=== PATIENT | female | born 1945 | race Caucasian/White ===

== ENCOUNTER → 2023-03-18 12:27 | Outpatient (REF) | payer OTHER, SELFPAY | LOC: RAD 12:27 | PROVIDERS: ATTENDING PHYSICIAN Physician Assistant Medical; FAMILY PHYSICIAN Nurse Practitioner | DX: S99.912A Unspecified injury of left ankle, initial encounter (principal); W19.XXXA Unspecified fall, initial encounter; M25.512 Pain in left shoulder | CPT/HCPCS: 73030; 73610; 73630 ==

== ENCOUNTER → 2023-05-22 08:52 | Outpatient (REF) | payer OTHER, SELFPAY ==
[2023-05-22 13:29] LABS: Glycohemoglobin (HgbA1c) 5.8 % (4.0-5.6)
[2023-05-22 14:44] LABS: Free T3 3.83 pg/ml (2.77-5.27)
[2023-05-22 14:58] LABS: TSH Reflex To Free T4 0.45 uIU/ml (0.47-4.68)
[2023-05-22 15:27] LABS: Free T4 1.19 ng/dl (0.78-2.19)
[2023-05-22 15:49] LABS: Urine Albumin Negative (Neg - Trace); Urine Bilirubin Negative (Negative); Urine Character Clear (Clear); Urine Color Yellow; Urine Glucose Negative (Negative); Urine Ketone Negative (Negative); Urine Leukocyte 1+ (Negative); Urine Nitrite Negative (Negative); Urine Occult Blood 2+ (Negative); Urine Specific Gravity 1.025 (<1.030); Urine Urobilinogen Negative (Neg - 1+)
[2023-05-22 15:57] LABS: Urine Calcium Oxalate Crystals Present; Urine Squamous Cell 0-2 /LPF (Few)
[2023-05-23 14:21] LABS: Thyroglobulin Antibodies <0.9 IU/mL (0.0-4.0); Thyroid Peroxidase Ab (TPO) <0.3 IU/mL (0.0-9.0)
== END ==
LOC: HWLAB 08:52
PROVIDERS: ATTENDING PHYSICIAN Nurse Practitioner Adult Health
DX: R73.01 Impaired fasting glucose (principal); E05.90 Thyrotoxicosis, unspecified without thyrotoxic crisis or storm; N39.0 Urinary tract infection, site not specified
CPT/HCPCS: 36415; 81003; 81015; 83036; 84439; 84443; 84481; 86376; 86800; 87086

== ENCOUNTER → 2023-06-19 09:38 | Outpatient (REF) | payer OTHER, SELFPAY | LOC: WDC 09:38 | PROVIDERS: ATTENDING PHYSICIAN Nurse Practitioner Adult Health | DX: N64.89 Other specified disorders of breast (principal) | CPT/HCPCS: 76642; 77062; 77066 ==

== ENCOUNTER → 2023-06-24 08:08 | Outpatient (REF) | payer OTHER, SELFPAY ==
--- NOTE | 2023-06-26 11:07 | OID.BR.INTR ---
JUMANAD Breast Navigator - Initial
- -
Date of Contact: 06/24/23
Met with patient. Patient given written information on navigator services available at [facility]. Will follow up as needed per protocol.
== END ==
LOC: WDC 08:08
PROVIDERS: ATTENDING PHYSICIAN Nurse Practitioner Adult Health
DX: N63.12 Unspecified lump in the right breast, upper inner quadrant (principal)
CPT/HCPCS: 88305; 19083; 77065; 88341; 88342; 88360; A4648

== ENCOUNTER → 2023-07-11 12:02 | Outpatient (REF) | payer OTHER, SELFPAY ==
[2023-07-11 15:26] LABS: % Basophils 0.5 % (0-2); % Eosinophils 1.4 % (0-6); % Immature Granulocytes 0.4 % (0-0.5); % Lymphocytes 8.9 % (20.5-51.1); % Monocytes 8.2 % (1.7-9.3); % Neutrophils 80.6 % (42.2-75.2); Absolute Basophils 0.1 10^3/uL (0-0.2); Absolute Eosinophils 0.2 10^3/uL (0-0.7); Absolute Immature Granulocytes 0.1 10^3/uL (0-0.05); Absolute Lymphocytes 1.1 10^3/uL (1.2-3.4); Absolute Neutrophils 9.5 10^3/uL (1.4-6.5); Hematocrit 43.7 % (37.0-47.0); Hemoglobin 14.5 g/dL (12.0-16.0); Mean Corp Hgb Conc. 33.2 g/dL (33.0-37.0); Mean Corpuscular Hgb 29.2 pg (27.0-31.0); Mean Corpuscular Volume 87.9 fL (81.0-99.0); Mean Platelet Volume 9.9 fL (7.4-10.4); Nucleated Red Blood Cells % 0 %; Platelet Count 312 10^3/uL (130-400); Red Blood Cell Count 4.97 10^6/uL (4.20-5.40); Red Cell Dist. Width 13.2 % (11.5-14.5); White Blood Cell Count 11.8 10^3/uL (4.8-10.8)
[2023-07-11 15:27] LABS: Urine Albumin Trace (Neg - Trace); Urine Bilirubin 1+ (Negative); Urine Character Very Cloudy (Clear); Urine Color Yellow; Urine Glucose Negative (Negative); Urine Ketone 1+ (Negative); Urine Leukocyte Trace (Negative); Urine Nitrite Negative (Negative); Urine Occult Blood 3+ (Negative); Urine Urobilinogen 1+ (Neg - 1+)
[2023-07-11 15:30] LABS: ALT (SGPT) 14 U/L (0-35); AST (SGOT) 17 U/L (14-36); Albumin 3.9 g/dl (3.5-5.0); Alkaline Phosphatase 113 U/L (38-126); Blood Urea Nitrogen 17 mg/dl (7-17); Calcium 9.6 mg/dl (8.4-10.2); Carbon Dioxide 28 mmol/L (22-30); Chloride 103 mmol/L (98-107); Glucose 128 mg/dl (70-99); Sodium 140 mmol/L (135-145); Total Bilirubin 0.5 mg/dl (0.2-1.3); Total Protein 6.5 g/dl (6.3-8.2); eGFR > 60.00
[2023-07-11 15:39] LABS: Erythrocyte Sed Rate 40 mm/hour (0-20)
[2023-07-11 15:50] LABS: Vitamin D, 25-OH*** 58.7 ng/mL (30-80)
[2023-07-11 16:03] LABS: TSH Reflex To Free T4 0.25 uIU/ml (0.47-4.68)
[2023-07-11 16:05] LABS: Urine Amorphous Seen; Urine Calcium Oxalate Crystals Present
[2023-07-11 16:33] LABS: Free T4 1.29 ng/dl (0.78-2.19)
== END ==
LOC: HWLAB 12:02
PROVIDERS: ATTENDING PHYSICIAN Nurse Practitioner Adult Health
DX: M25.50 Pain in unspecified joint (principal); R53.83 Other fatigue; B34.9 Viral infection, unspecified; R79.89 Other specified abnormal findings of blood chemistry
CPT/HCPCS: 36415; 80053; 81003; 81015; 82306; 84439; 84443; 85025; 85652; 86038; 86140; 86200; 86430; 86618

== ENCOUNTER → 2023-07-15 16:25 | Outpatient (REF) | payer OTHER, SELFPAY | LOC: MRI 3T 16:25 | PROVIDERS: ATTENDING PHYSICIAN Surgery; FAMILY PHYSICIAN Nurse Practitioner Adult Health | DX: C50.411 Malignant neoplasm of upper-outer quadrant of right female breast (principal); Z17.0 Estrogen receptor positive status [ER+] | CPT/HCPCS: 77049; A9585 ==

== ENCOUNTER 2023-07-20 23:01 | Inpatient (IN) | payer OTHER, SELFPAY ==
[2023-07-20] VITALS (7 sets, daily range): BP systolic 125–155; BP diastolic 70–83
[2023-07-20 17:58] LABS: % Basophils 0.7 % (0-2); % Eosinophils 3.2 % (0-6); % Immature Granulocytes 0.5 % (0-0.5); % Monocytes 10.1 % (1.7-9.3); % Neutrophils 71.5 % (42.2-75.2); Absolute Basophils 0.1 10^3/uL (0-0.2); Absolute Eosinophils 0.4 10^3/uL (0-0.7); Absolute Immature Granulocytes 0.1 10^3/uL (0-0.05); Absolute Lymphocytes 1.9 10^3/uL (1.2-3.4); Absolute Monocytes 1.3 10^3/uL (0.1-0.6); Absolute Neutrophils 9.6 10^3/uL (1.4-6.5); Hematocrit 40.1 % (37.0-47.0); Hemoglobin 13.7 g/dL (12.0-16.0); Mean Corp Hgb Conc. 34.2 g/dL (33.0-37.0); Mean Corpuscular Hgb 29.3 pg (27.0-31.0); Mean Corpuscular Volume 85.7 fL (81.0-99.0); Mean Platelet Volume 8.8 fL (7.4-10.4); Nucleated Red Blood Cells % 0 %; Platelet Count 396 10^3/uL (130-400); Red Blood Cell Count 4.68 10^6/uL (4.20-5.40); Red Cell Dist. Width 13.5 % (11.5-14.5); White Blood Cell Count 13.3 10^3/uL (4.8-10.8)
[2023-07-20 18:16] LABS: ALT (SGPT) < 10 U/L (0-35); AST (SGOT) 13 U/L (14-36); Albumin 3.4 g/dl (3.5-5.0); Alkaline Phosphatase 103 U/L (38-126); Blood Urea Nitrogen 19 mg/dl (7-17); Calcium 9.5 mg/dl (8.4-10.2); Carbon Dioxide 29 mmol/L (22-30); Chloride 103 mmol/L (98-107); Glucose 126 mg/dl (70-99); Potassium 4.5 mmol/L (3.5-5.1); Sodium 138 mmol/L (135-145); Total Bilirubin 0.3 mg/dl (0.2-1.3); Total Protein 6.5 g/dl (6.3-8.2); eGFR > 60.00
[2023-07-20] MEDS: DECADRON 10 MG IV (19:29)
[2023-07-20] MEDS: DUONEB 3 ML INH (19:36)
--- NOTE | 2023-07-20 19:38 | ED.GENMED ---
History of Present Illness
General
Chief Complaint: Breathing Problem
Source: patient
Time Seen by Provider: 07/20/23 17:57
Travel History
Have you had any contact with someone who has COVID-19?: No
Do you have any symptoms of coronavirus? Fever > 100 degrees, chills, cough, shortness of breath, sore throat, loss of taste or smell, muscle aches, or headache?: No
History of Present Illness
History of Present Illness:
78 year old female presents with increased work of breathing. History of COPD, HTN. Typically uses 2 L of oxygen at night but not during the day. She was brought here under nonrebreather by EMS. She was breathing about 40 breaths a minute. She
has an upcoming lumpectomy in about a week. Family states she is nervous about this. There has been no fever. No sweats or chills
Phy Exam
Physical Exam
Physical Exam:
General: Well-developed female with increased work of breathing
HEENT: Normocephalic atraumatic oral mucosa moist no erythema or thrush
Heart: Regular rate and rhythm
Lungs: Breath sounds distant bilaterally
Extremities: No cyanosis
Skin is warm no rash
Scores
Heart Failure Risk
Heart Failure Risk Score: Not Applicable
Course
Orders/Labs/Results
Orders:
Orders
07/20/23 17:44
EKG [Electrocardiogram (*1)] Urgent
Reason for Study: Shortness of Breath
EKG- Treatment ONCE
07/20/23 17:51
Complete Blood Count/With Diff Urgent
Comprehensive Metabolic Panel Urgent
07/20/23 18:29
CR Chest - 2 Views Urgent
Comment:
Reason For Exam: sob
07/20/23 19:20
Dexamethasone Sod Phosphate [Decadron] 10 mg IV NOW STA
Ipratropium/Albuterol Sulfate [Duoneb] 3 ml INH R NOW ONE
Abnormal Lab Results
07/20/23
17:51
WBC 13.3 H 10^3/uL
(4.8-10.8)
Abs Immat Gran (auto) 0.1 H 10^3/uL
(0-0.05)
Absolute Neuts (auto) 9.6 H 10^3/uL
(1.4-6.5)
Absolute Monos (auto) 1.3 H 10^3/uL
(0.1-0.6)
Lymphocytes % 14.0 L %
(20.5-51.1)
Monocytes % 10.1 H %
(1.7-9.3)
BUN 19 H mg/dl
(7-17)
Glucose 126 H mg/dl
(70-99)
AST 13 L U/L
(14-36)
Albumin 3.4 L g/dl
(3.5-5.0)
07/20/23 17:51
07/20/23 17:51
Vital Signs
Initial and Last Documented VS:
Initial Vital Signs
Temp Pulse Resp BP Pulse Ox
98.7 F 103 24 155/83 92
07/20/23 17:45 07/20/23 17:45 07/20/23 17:45 07/20/23 17:45 07/20/23 17:45
Last Documented Vital Signs
Temp Pulse Resp BP Pulse Ox
98.7 F 92 26 132/71 92
07/20/23 17:45 07/20/23 21:00 07/20/23 21:00 07/20/23 21:00 07/20/23 20:15
MDM/Problems Addressed
Differential Diagnosis Includes:
Shortness of breath with increased work of breathing. She is on Eliquis. Unlikely to be PE. COPD versus CHF versus pneumonia
Patient tachypneic on exam requiring increased oxygen demand. Will try DuoNeb and Decadron chest x-ray pending.
*Critical Care Note
Total Time (30-74mins, 75-104mins- exclusive of procedures): Not Applicable
Update Note
Update Note:
Chest x-ray reviewed and is clear. Patient still tachypneic and requiring additional oxygen. Will keep in hospital for COPD flare.
ED Attending Note
-
Portions of this chart may have been created with voice recognition software.� Occasional wrong word or��sound alike� substitutions may have occurred due to the inherent limitations of voice recognition software.
Discharge Plan
Departure
Patient Disposition: Admit
Date of Disposition: 07/20/23
Time of Disposition: 21:50
Admit to: Telemetry
Presentation/result/management discussed w/ accepting MD/DO: Hospitalist
Discharge Problem:
COPD (chronic obstructive pulmonary disease)
Prescriptions:
No Action
amlodipine 10 mg Tablet
10 mg PO DAILY
fluticasone propion-salmeterol [Advair Diskus] 500-50 mcg/dose Blister With Device
1 inh INHALATION R BID
Spiriva with HandiHaler 18 mcg Capsule, W/Inhalation Device
1 cap INHALATION R DAILY
zinc 50 mg Tablet
50 mg PO DAILY
cholecalciferol (vitamin D3) 50 mcg (2,000 unit) Tablet
50 mcg PO DAILY
Emergen-C 500 mg Tablet,Chewable
1 tab PO DAILY
Xarelto 20 mg tablet
20 mg PO .DAILY SEE NOTE
Patient Comments:
PTS LAST DOSE OF SHAQ WAS FRIDAY NIGHT SHE WAS TO START XARELTO 20MG DAILY TODAY
guaifenesin 600 mg Tablet Extended Release 12hr
600 mg PO Q12 Qty: 30 0RF
azithromycin [Zithromax] 500 mg tablet
500 mg PO DAILY 3 Days Qty: 3 0RF
prednisone 10 mg tablet
10 mg PO DAILY Qty: 20 0RF
Rx Instructions:
40mg daily for 2 days
30mg daily for 2 days
20mg daily for 2 days
10mg daily for 2 days
Referrals:
Yeni Jaimes CRNP [Family Provider] -
Interventions
Interventions:
*Risk Screen - Suicide Last Done: 07/20/23 17:46
*General Assessment Last Done: 07/20/23 17:46
*Neglect/Abuse Screening Last Done: 07/20/23 17:46
*ED COVID-19 Vaccine History Last Done: 07/20/23 17:46
ED- Cardiac Assessment Last Done: 07/20/23 17:47
ED- Pulmonary Assessment Last Done: 07/20/23 17:47
Discharge Date and Time
Print Language: BANGLADESHI
--- NOTE | 2023-07-20 22:05 | HPS.HSE ---
Family Physician
-
Family Physician: Yeni Jaimes
Chief Complaint
-
Shortness of breath
History of Present Illness
78 year old woman presents with c/o SOB and increased work of breathing. She has a History of COPD, and essential HTN. She Typically uses 2 L of oxygen at night, but not during the day. As reported by EMS, she was breathing about 40 breaths a
minute. She has an upcoming lumpectomy in about a week and her family states she is nervous about this. There has been no fever. No sweats or chills. At the time of my interview, she feels better after decadron and nebs. She says her last
cigarrette was 2 months ago.
Medical History
Past Medical History
Past Medical History: Reports Other
Additional Past Medical History:
Essential hypertension
LBBB (left bundle branch block)
Malignant neoplasm of upper-outer quadrant of right female breast
Nodular lesion on surface of skin
Chronic obstructive pulmonary disease,
Paroxysmal atrial fibrillation
Past Surgical History: Reports None
Social History
Tobacco: Former Smoker
Alcohol: None
Drug: None
Family History
Family History: Not pertinent
Allergies / Home Medications
Allergies reflects when Allergies were last updated in [email or web address].
Home Medications with original date entered in [email or web address]
Allergy/Medication List:
Allergies
Allergy/AdvReac Type Severity Reaction Status Date / Time
pentazocine [From Talwin] Allergy Severe Anaphylaxis Verified 09/06/22 12:05
Penicillins Allergy Mild Hives Verified 09/06/22 11:33
pseudoephedrine Allergy Mild Hives Verified 09/06/22 11:33
[From Sudafed]
Macrolide Antibiotics Allergy Hives Verified 09/06/22 12:17
KETOLIDES Allergy Unknown Hives Uncoded 09/06/22 13:08
Home Medications
amlodipine 10 mg tablet 10 mg PO DAILY Blood Pressure 09/06/22
cholecalciferol (vitamin D3) 50 mcg (2,000 unit) tablet 50 mcg PO DAILY Supplement 09/06/22
tiotropium bromide 18 mcg capsule with inhalation device (Spiriva with HandiHaler) 1 cap inhalation R DAILY Lung/Breathing Issues 09/06/22
vitamin C 500 mg-multivitamin with minerals chewable tablet (Emergen-C) 1 tab PO DAILY Supplement 09/06/22
zinc 50 mg tablet 50 mg PO DAILY Supplement 09/06/22
apixaban 5 mg tablet (Eliquis) 5 mg PO BID 07/20/23
Review of Systems
-
History Source: Patient
A 12 point ROS was completed and negative except as noted: Yes
Physical Exam
Vital Signs
Vital Signs
Temp Pulse Resp BP Pulse Ox
98.7 F 92 26 132/71 92
07/20/23 17:45 07/20/23 21:00 07/20/23 21:00 07/20/23 21:00 07/20/23 20:15
Physical Exam
General: Well Developed, Well Nourished and Respiratory Distress
HEENT: Moist mucous membranes, Nose Appears Normal and Ears Appear Normal
Respiratory: Wheezes and Decreased Breath Sounds
Cardiac: S1/S2 and Regular Rhythm
GI: Soft, Non Tender and Non Distended
Musculoskeletal: No Clubbing, No Cyanosis, Edema, Left Lower Extremity (trace) and Edema, Right Lower Extremity (trace)
Skin: Warm and Dry
Neuro: Awake, Alert, Oriented and AO x 3
Psych: Calm
Laboratory Results
-
07/20/23 17:51
07/20/23 17:51
Laboratory Results
Total Bilirubin 0.3 mg/dl (0.2-1.3) 07/20/23 17:51
AST 13 U/L (14-36) L 07/20/23 17:51
ALT < 10 U/L (0-35) 07/20/23 17:51
Alkaline Phosphatase 103 U/L (38-126) 07/20/23 17:51
Data Reviewed
-
Lab Data: Labs Reviewed by me
Impression/Plan
-
IMPRESSION:
78 woman with COPD exacerbation
PLAN:
1. COPD exacerbation, no PNA on CXR.
Steroids
Nebs
Oral Doxy
Oxygen as needed
2. Anxiety about recent breast cancer diagnosis
Low dose ativan PRN
3. WBC of 13.3 - may be from steroids
Follow daily and trend
Continue to look for sources of infection
4. BUN/Creat > 20, likely from decreased po
encourage PO intake
Full code
VCD for DVTp
[2023-07-21] VITALS (8 sets, daily range): BP systolic 92–140; BP diastolic 57–82; BMI 25.9
[2023-07-21] MEDS: VIBRAMYCIN 100 MG PO ×3 (01:34→19:36)
[2023-07-21] MEDS: DUONEB 3 ML INH ×4 (03:40→20:17)
[2023-07-21] MEDS: DECADRON 6 MG IV ×2 (05:23→21:47)
[2023-07-21 06:09] LABS: Blood Urea Nitrogen 20 mg/dl (7-17); Calcium 9.5 mg/dl (8.4-10.2); Carbon Dioxide 29 mmol/L (22-30); Chloride 103 mmol/L (98-107); Glucose 187 mg/dl (70-99); Potassium 4.8 mmol/L (3.5-5.1); Sodium 138 mmol/L (135-145); eGFR > 60.00
[2023-07-21] MEDS: NORVASC PO (08:31)
[2023-07-21] MEDS: ELIQUIS 5 MG PO ×2 (08:31→19:39)
[2023-07-21] MEDS: VITAMIN C 500 MG PO (08:32)
[2023-07-21] MEDS: ZINC SULFATE 220 MG PO (08:32)
[2023-07-21] MEDS: VITAMIN D3 (cholecalciferol) 50 MCG PO (08:32)
--- NOTE | 2023-07-21 17:05 | W.PN.HOSP.TC ---
Today's Communication/Plan
-
see outlined plan
Assessment / Plan
Assessment / Plan
Assessment:
Acute hypoxic RF on chronic hypoxic RF (baseline O2 needs only 2L at night)
AECOPD
- continue IV steroids
- nebs scheduled and prn
- doxycycline continues
- wean O2 as able
Anxiety, situational with upcoming breast procedure
- prn Ativan
recent dx of R breast cancer
- for Lumpectomy next week
PAF
- on Eliquis
Hx of CVA 2000
Essential HTN
- continue Amlodipine
DVT ppx: Eliquis
Code: Full
Anticipated Discharge: 24 - 48 hours
Subjective/Interval History
-
Date of Service: July 21, 2023
feeling subjectively better this morning, less SOB
Objective Data
-
Labs:
Laboratory Results
07/21/23
05:22
Sodium 138
Potassium 4.8
Chloride 103
Carbon Dioxide 29
BUN 20 H
Creatinine 0.6
Glucose 187 H
Calcium 9.5
Vital Signs:
Vital Signs
Temp Pulse Resp BP Pulse Ox
97.9 F 82 16 128/73 93
07/21/23 11:54 07/21/23 11:54 07/21/23 11:54 07/21/23 11:54 07/21/23 11:54
Physical Exam
-
General: No Apparent Distress
HEENT: Normocephalic and Atraumatic
Respiratory: Wheezes (faint); Negative Rales
Cardiac: Regular Rhythm and S1/S2
Genito-urinary: No Costovertebral Tender
Neuro: AO x 3
Psych: Calm
Data Reviewed
-
Total Time Spent with Patient (in minutes): 42
Labs: Labs Reviewed by me
--- NOTE | 2023-07-21 18:16 | W.PN.UPDATE ---
Update Note
Progress Note Update
Pt know to me-was scheduled for tentative lumpectomy and sentinel node mapping and biopsy next week pending Pulmonary clearance and MRI of the breast. Surgery is cancelled and will await resolution of the COPD exacerbation. MRI shows possible
multi-centric disease and will discuss with patient. No need to consult me formally.
Thank you.
--- NOTE | 2023-07-21 21:19 | PTCARENOTE ---
DALLAS Ureña notified about IV decadron order/scheduled time in APR.
[2023-07-22 02:49] VITALS: BMI 25.3
[2023-07-22 03:00] VITALS: BP 110/64
--- NOTE | 2023-07-22 03:43 | PTCARENOTE ---
Rec'd pt from the ER on RA. Pt walked from stretcher to the bed. Denies pain. Assessment as charted. About 15 minutes after being in the room pt asked to have her oxygen placed back on. 2L02 placed on pt. She does get dyspnic on exertion. Call faria
in reach.
[2023-07-22] MEDS: DECADRON 6 MG IV (05:53)
[2023-07-22] MEDS: DUONEB 3 ML INH ×2 (07:54→15:34)
[2023-07-22 07:55] VITALS: BP 135/83
[2023-07-22 08:51] LABS: Hematocrit 38.9 % (37.0-47.0); Hemoglobin 12.7 g/dL (12.0-16.0); Mean Corp Hgb Conc. 32.6 g/dL (33.0-37.0); Mean Corpuscular Hgb 28.9 pg (27.0-31.0); Mean Corpuscular Volume 88.6 fL (81.0-99.0); Mean Platelet Volume 9.2 fL (7.4-10.4); Platelet Count 385 10^3/uL (130-400); Red Blood Cell Count 4.39 10^6/uL (4.20-5.40); Red Cell Dist. Width 13.3 % (11.5-14.5); White Blood Cell Count 10.9 10^3/uL (4.8-10.8)
[2023-07-22] MEDS: VITAMIN C 500 MG PO (09:06)
[2023-07-22] MEDS: NORVASC 10 MG PO (09:06)
[2023-07-22] MEDS: ZINC SULFATE 220 MG PO (09:06)
[2023-07-22] MEDS: VIBRAMYCIN 100 MG PO ×2 (09:06→20:02)
[2023-07-22] MEDS: ELIQUIS 5 MG PO ×2 (09:07→20:02)
[2023-07-22] MEDS: VITAMIN D3 (cholecalciferol) 50 MCG PO (09:07)
[2023-07-22 09:29] LABS: Blood Urea Nitrogen 23 mg/dl (7-17); Calcium 9.7 mg/dl (8.4-10.2); Carbon Dioxide 27 mmol/L (22-30); Chloride 104 mmol/L (98-107); Estimated Creatinine Clearance 76 ml/min; Glucose 140 mg/dl (70-99); Potassium 5.1 mmol/L (3.5-5.1); Sodium 140 mmol/L (135-145); eGFR > 60.00
--- NOTE | 2023-07-22 10:50 | W.PN.HOSP.TC ---
Today's Communication/Plan
-
IV steroids continue, nebs continue
Assessment / Plan
Assessment / Plan
Assessment:
Acute hypoxic RF on chronic hypoxic RF (baseline O2 needs only 2L at night)
AECOPD
- continue IV steroids
- nebs scheduled and prn
- doxycycline, day 2
- wean O2 as able
Anxiety, situational with upcoming breast procedure
- prn Ativan
recent dx of R breast cancer
- for Mastectomy, sentinel node mapping in coming weeks
PAF
- on Eliquis
Hx of CVA 2000
Essential HTN
- continue Amlodipine
DVT ppx: Eliquis
Code: Full
Anticipated Discharge: Within 24 hours
Subjective/Interval History
-
Date of Service: July 22, 2023
reports wheezing, cough (nonproductive)
off O2 with rest and exertion
Objective Data
-
Labs:
Laboratory Results
07/22/23
08:01
WBC 10.9 H
Hgb 12.7
Hct 38.9
Plt Count 385
Sodium 140
Potassium 5.1
Chloride 104
Carbon Dioxide 27
BUN 23 H
Creatinine 0.6
Glucose 140 H
Calcium 9.7
Vital Signs:
Vital Signs
Temp Pulse Resp BP Pulse Ox
98.0 F 69 20 135/83 98
07/22/23 07:55 07/22/23 09:06 07/22/23 07:59 07/22/23 09:06 07/22/23 07:59
I&O
07/21/23 07/22/23 07/23/23
06:59 06:59 06:59
Intake Total 0 / 0
Balance 0 / 0
Physical Exam
-
General: No Apparent Distress
HEENT: Normocephalic and Atraumatic
Respiratory: Wheezes
Cardiac: Regular Rhythm and S1/S2
GI: Soft
Musculoskeletal: No Edema
Psych: Calm
Data Reviewed
-
Total Time Spent with Patient (in minutes): 45
Labs: Labs Reviewed by me
--- NOTE | 2023-07-22 12:53 | PN.CDI ---
CDI
- -
CDI:
Physician Documentation Request
Admit Date: 07/20/23 23:01
Dear Doctor More,
Please review the following and provide your response in the progress notes.
Clinical Indicators:
Documentation in the record on 07/21 PN includes the diagnosis of acute hypoxic respiratory failure.
- 07/21 PN 'Acute hypoxic RF on chronic hypoxic RF (baseline O2 needs only 2L at night)'
- 07/19 ER Physician 'She was brought here under nonrebreather by EMS. She was breathing about 40 breaths a minute'
- Documented VS 92% on room air on admission
- 2L O2 pulse ox >91%
Recognized standard criteria for respiratory failure includes:
(Source: [facility] Hospitalist Dec 2012)
ABGs (1 or more)
�PO2 <60 or RA SpO2 <91%
�PcO2 >50 and pH <7.35
�pO2 decrease or pcO2 increase by 10 mmHg from baseline if known Symptoms:
�Tachypnea, SOB, dyspnea
�Pallor or cyanosis
�Anxiety or restlessness
�Use of accessory muscles
�Retractions (grunting in newborns)
�Unable to speak in complete sentences
Supplemental O2 requirement of 40% (5LPM) or more Intubation is not required
Based on the above information and the recognized standard for respiratory failure could you please verify this diagnoses is still accurate and reflective of the patient�s condition to ensure quality of the medical record.
Please clarify in the Progress Notes:
Acute hypoxic respiratory failure is/was present and is a clinical diagnosis based on (please include this additional support in the medical record)
After study acute hypoxic respiratory failure has been ruled out
Other
Use of terms such as suspected, likely, concern for, or probable (associated with a specific diagnosis that is being evaluated, monitored, or treated as if it exists) are acceptable and can be coded in the inpatient setting, when documented at the
time of discharge.
Thank you,
Harrison Rahman RN
CDI Specialist
Please use your independent medical judgment in providing your response.
[2023-07-22 15:55] VITALS: BP 93/67
[2023-07-22] MEDS: DECADRON 4 MG IV ×2 (17:07→23:37)
[2023-07-22] MEDS: ATIVAN 0.5 MG PO (21:41)
[2023-07-22 23:43] VITALS: BP 129/67
[2023-07-23 07:02] VITALS: BP 148/76
[2023-07-23] MEDS: DUONEB 3 ML INH ×4 (07:43→19:25)
--- NOTE | 2023-07-23 08:32 | W.PN.HOSP.TC ---
Today's Communication/Plan
-
continue IV steroids
scheduled nebs
add steroid nebs
continue doxy
mucolytics/IS/Acapella
Assessment / Plan
Assessment / Plan
Assessment:
Acute hypoxic Respiratory insufficiency on chronic hypoxic RF (baseline O2 needs only 2L at night) - acute hypoxic respiratory failure has been ruled out
AECOPD
- continue IV steroids
- nebs scheduled and prn
- add steroid nebs BID
- doxycycline, day 3/
- wean O2 as able
- add IS/Acapella
- at DC, start Breo - patient confirmed with insurance for coverage.
Anxiety, situational with upcoming breast procedure
- prn Ativan
recent dx of R breast cancer
- for Mastectomy, sentinel node mapping in coming weeks
PAF
- on Eliquis
Hx of CVA 2000
Essential HTN
- continue Amlodipine
DVT ppx: Eliquis
Code: Full
Anticipated Discharge: > 48 hours
Subjective/Interval History
-
Date of Service: July 23, 2023
feels more wheezing today, states that day 3 is usually her worst in her flare ups
Objective Data
-
Vital Signs:
Vital Signs
Temp Pulse Resp BP Pulse Ox
98 F 72 20 148/76 96
07/23/23 07:02 07/23/23 07:50 07/23/23 07:50 07/23/23 07:02 07/23/23 07:50
I&O
07/22/23 07/23/23 07/24/23
06:59 06:59 06:59
Intake Total 0 / 0 1859
Balance 0 / 0 1859
Physical Exam
-
HEENT: Normocephalic and Atraumatic
Respiratory: Wheezes
Cardiac: Regular Rhythm
GI: Soft
Musculoskeletal: No Edema
Neuro: AO x 3
Psych: Calm
Data Reviewed
-
Total Time Spent with Patient (in minutes): 42
Labs: Labs Reviewed by me
[2023-07-23] MEDS: VITAMIN D3 (cholecalciferol) 50 MCG PO (09:03)
[2023-07-23] MEDS: VITAMIN C 500 MG PO (09:03)
[2023-07-23] MEDS: ZINC SULFATE 220 MG PO (09:03)
[2023-07-23] MEDS: VIBRAMYCIN 100 MG PO ×2 (09:03→20:00)
[2023-07-23] MEDS: NORVASC 10 MG PO (09:03)
[2023-07-23] MEDS: DECADRON 4 MG IV ×3 (09:04→23:19)
[2023-07-23] MEDS: ELIQUIS 5 MG PO ×2 (09:04→20:00)
[2023-07-23] MEDS: PULMICORT 0.5 MG INH ×2 (11:19→19:25)
[2023-07-23 15:05] VITALS: BP 127/71
[2023-07-23] MEDS: PEPCID 20 MG PO (18:41)
[2023-07-23] MEDS: ATIVAN 0.5 MG PO (21:55)
[2023-07-23 23:51] VITALS: BP 142/82
[2023-07-24] VITALS (8 sets, daily range): BP systolic 130–179; BP diastolic 27–89; PULSE 71–92; O2SAT 96–97
[2023-07-24] MEDS: DUONEB 3 ML INH ×4 (07:42→20:20)
[2023-07-24] MEDS: PULMICORT 0.5 MG INH ×2 (08:06→20:20)
--- NOTE | 2023-07-24 09:00 | W.PN.HOSP.TC ---
Today's Communication/Plan
-
tele
nebs continue
IV steroids, reduce the dose
continue doxy
OOBTC, PT/OT
Assessment / Plan
Assessment / Plan
Assessment:
Acute hypoxic Respiratory insufficiency on chronic hypoxic RF (baseline O2 needs only 2L at night) - acute hypoxic respiratory failure has been ruled out
AECOPD
- continue IV Decadron, reduce to 4mg q12h
- nebs scheduled and prn
- continue steroid nebs BID
- doxycycline, day 4/
- wean O2 as able
- continue IS/Acapella
- at DC, start Breo - patient confirmed with insurance for coverage.
Anxiety, situational with upcoming breast procedure
- prn Ativan HS
recent dx of R breast cancer
- for Mastectomy, sentinel node mapping in coming weeks
PAF
- reported flutters last night, likely in setting of nebs
- add tele
- on Eliquis
Hx of CVA 2000
Essential HTN
- continue Amlodipine
DVT ppx: Eliquis
Code: Full
Anticipated Discharge: Within 24 hours
Subjective/Interval History
-
Date of Service: July 24, 2023
reports cough and wheezing improving
Objective Data
-
Vital Signs:
Vital Signs
Temp Pulse Resp BP Pulse Ox
98.3 F 59 20 155/67 93
07/24/23 08:19 07/24/23 08:19 07/24/23 08:19 07/24/23 08:19 07/24/23 08:19
I&O
07/23/23 07/24/23 07/25/23
06:59 06:59 06:59
Intake Total 1859 480 / 480
Balance 1859 480 / 480
Physical Exam
-
General: No Apparent Distress
HEENT: Normocephalic and Atraumatic
Respiratory: Wheezes (faint)
Cardiac: Regular Rhythm and S1/S2
GI: Soft
Genito-urinary: No Costovertebral Tender
Neuro: AO x 3
Hematologic / Lymphatic: No Lymphadenopathy
Psych: Calm
Data Reviewed
-
Total Time Spent with Patient (in minutes): 44
Labs: Labs Reviewed by me
[2023-07-24] MEDS: ELIQUIS 5 MG PO ×2 (09:18→21:56)
[2023-07-24] MEDS: DECADRON 4 MG IV ×2 (09:18→21:56)
[2023-07-24] MEDS: NORVASC 10 MG PO (09:18)
[2023-07-24] MEDS: PEPCID 20 MG PO (09:19)
[2023-07-24] MEDS: ZINC SULFATE 220 MG PO (09:19)
[2023-07-24] MEDS: VIBRAMYCIN 100 MG PO ×2 (09:19→21:56)
[2023-07-24] MEDS: FLUSH (NSS) 2 FLUSH IV (09:19)
[2023-07-24] MEDS: VITAMIN C 500 MG PO (09:19)
[2023-07-24] MEDS: VITAMIN D3 (cholecalciferol) 50 MCG PO (09:19)
[2023-07-24] MEDS: DECADRON IV (09:46)
--- NOTE | 2023-07-24 10:50 | PTCARENOTE ---
Placed pt on telemetry per orders, Sinus Rhythm, HR in the 60s.
--- NOTE | 2023-07-24 14:01 | CM ---
Late Note from 07/22/2023 (deleted in error): I met with Genevieve and her on 07/22/2023 to discuss advance directives and compete assessment.
They live together in an apartment at [facility]. Both are (I) amb and adl's.
Plan: Discharge to home with . No needs anticipated.
PCP: Yeni Jaimes
Pharmacy: [facility] in [place]
--- NOTE | 2023-07-24 15:08 | CM ---
I met with Genevieve today to discuss discharge plans. She will be evaluated by PT and OT and possible discharge tomorrow.
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
Plan: Return to apartment at [facility] with . No needs anticipated.
PCP: Yeni Jaimes
Pharmacy: [facility] in [place]
--- NOTE | 2023-07-24 15:43 | PTOTSP ---
Patient with good insight into safety with transfers and ambulation. Demonstrates independence with mobility. Does not demonstrate need for continues skilled therapy; will be discharged at this time. If needs changes, please re-consult.
[2023-07-24] MEDS: TUMS EX (EXTRA STRENGTH) CHEWABLE 1 TABLET PO (21:35)
[2023-07-24] MEDS: ATIVAN 0.5 MG PO (21:57)
[2023-07-25 03:46] VITALS: BP 157/92
[2023-07-25 07:30] VITALS: BP 152/87
[2023-07-25] MEDS: DUONEB 3 ML INH ×3 (07:32→15:29)
[2023-07-25] MEDS: PULMICORT 0.5 MG INH (07:32)
[2023-07-25] MEDS: NORVASC 10 MG PO (09:31)
[2023-07-25] MEDS: ELIQUIS 5 MG PO (09:31)
[2023-07-25] MEDS: ZINC SULFATE 220 MG PO (09:32)
[2023-07-25] MEDS: VIBRAMYCIN 100 MG PO (09:32)
[2023-07-25] MEDS: VITAMIN C 500 MG PO (09:32)
[2023-07-25] MEDS: PEPCID 20 MG PO (09:32)
[2023-07-25] MEDS: VITAMIN D3 (cholecalciferol) 50 MCG PO (09:32)
[2023-07-25] MEDS: DECADRON 4 MG IV (09:35)
[2023-07-25] MEDS: FLUSH (NSS) 2 FLUSH IV (09:35)
[2023-07-25 11:08] VITALS: BP 135/72
--- NOTE | 2023-07-25 13:18 | W.PN.HOSP.TC ---
Today's Communication/Plan
-
dc to home
Assessment / Plan
Assessment / Plan
Assessment:
Acute hypoxic Respiratory insufficiency on chronic hypoxic RF (baseline O2 needs only 2L at night) - acute hypoxic respiratory failure has been ruled out
AECOPD
- dc on steroid taper x 10 days
- nebs prn at home
- doxycycline course completed
- wean O2 as able
- continue IS/Acapella
- at DC, start Breo - patient confirmed with insurance for coverage.
Anxiety, situational with upcoming breast procedure
- prn Ativan HS
recent dx of R breast cancer
- for Mastectomy, sentinel node mapping in coming weeks
PAF
- reported flutters last night, likely in setting of nebs
- on Eliquis
Hx of CVA 2000
Essential HTN
- continue Amlodipine
DVT ppx: Eliquis
Code: Full
More than 30 minutes spent in discharge including
Final examination of the patient
Summarizing hospital stay
Instructions for continuing care to all relevant caregivers
Preparation of discharge records, prescriptions, and referral forms
Total time spent (in minutes): 42
Anticipated Discharge: Today
Subjective/Interval History
-
Date of Service: July 25, 2023
feels much improved and eager for DC
Objective Data
-
Vital Signs:
Vital Signs
Temp Pulse Resp BP Pulse Ox
98.3 F 70 18 135/72 95
07/25/23 11:08 07/25/23 11:08 07/25/23 11:08 07/25/23 11:08 07/25/23 11:07
I&O
07/24/23 07/25/23 07/26/23
06:59 06:59 06:59
Intake Total 480 / 480 960 / 960
Balance 480 / 480 960 / 960
Physical Exam
-
General: No Apparent Distress
HEENT: Normocephalic and Atraumatic
Respiratory: Negative Wheezes
Cardiac: Regular Rhythm and S1/S2
GI: Soft
Neuro: AO x 3
Hematologic / Lymphatic: No Lymphadenopathy
Psych: Calm
Data Reviewed
-
Total Time Spent with Patient (in minutes): 42
Labs: Labs Reviewed by me
--- NOTE | 2023-07-25 13:28 | W.DS.TRANS ---
DC Summary - Knot Cutter
-
Discharge Instructions:
Discharge Diagnosis/Procedures acute COPD exacerbation
Diet Regular
Activity As tolerated
Bathing Restrictions None
Instructions:
Stand-Alone Forms:
Changes to Home Medications: No
Discharge Medications:
DC Medications w/original date entered in [facility]
amlodipine 10 mg tablet 10 mg PO DAILY Blood Pressure 09/06/22
cholecalciferol (vitamin D3) 50 mcg (2,000 unit) tablet 50 mcg PO DAILY Supplement 09/06/22
tiotropium bromide 18 mcg capsule with inhalation device (Spiriva with HandiHaler) 1 cap inhalation R DAILY Lung/Breathing Issues 09/06/22
apixaban 5 mg tablet (Eliquis) 5 mg PO BID Blood Clot Prevention/Tx 07/20/23
acetaminophen 325 mg tablet (Tylenol) 325 mg PO DAILYPRN PRN mild pain 07/21/23
ascorbic acid (vitamin C) 500 mg tablet (Vitamin C) 500 mg PO DAILY Supplement 07/21/23
zinc sulfate 50 mg zinc (220 mg) capsule 50 mg PO DAILY Supplement 07/21/23
fluticasone furoate 100 mcg-vilanterol 25 mcg/dose inhalation powder (Breo Ellipta) 1 inh inhalation DAILY #60 ea 07/25/23
ipratropium 0.5 mg-albuterol 3 mg (2.5 mg base)/3 mL nebulization soln 3 ml inhalation R Q4HPRN PRN shortness of breath #90 mL 07/25/23
prednisone 10 mg tablet 10 mg PO DIRECTED #20 tabs 07/25/23
Home Medication Changes
Pending Results: No
Total time spent discharging patient (in min): 42
[2023-07-25 15:20] VITALS: BP 123/73
--- NOTE | 2023-07-25 16:07 | CM ---
Genevieve was in good spirits today in anticipation of discharge. Her was picking her up to return home. She is (I) amb and adl's. No needs identified.
Plan: Return home to [place] apartment with .
PCP: Yeni Jaimes
Pharmacy: [facility] in [place]
== END 2023-07-25 15:53 | disposition home or self-care (01) | DRG 192 ==
LOC: 4 EAST ACU 23:01
PROVIDERS: ADMITTING PHYSICIAN Internal Medicine; ATTENDING PHYSICIAN Internal Medicine; EMERGENCY PHYSICIAN Emergency Medicine; FAMILY PHYSICIAN Nurse Practitioner Adult Health
DX: J44.1 Chronic obstructive pulmonary disease with (acute) exacerbation (principal); C50.411 Malignant neoplasm of upper-outer quadrant of right female breast; Z87.891 Personal history of nicotine dependence; F41.9 Anxiety disorder, unspecified; I48.0 Paroxysmal atrial fibrillation; I10 Essential (primary) hypertension; R09.02 Hypoxemia; R06.89 Other abnormalities of breathing
CPT/HCPCS: 71046; 80048; 80053; 85025; 85027; 93005; 94640; 96374; 97116; 97162; 97166; 99285

== ENCOUNTER 2023-08-19 22:00 | Inpatient (IN) | payer OTHER, SELFPAY ==
[2023-08-19 17:13] VITALS: BP 149/98
[2023-08-19 17:42] LABS: % Basophils 0.6 % (0-2); % Eosinophils 1.6 % (0-6); % Immature Granulocytes 0.8 % (0-0.5); % Lymphocytes 11.1 % (20.5-51.1); % Monocytes 8.9 % (1.7-9.3); Absolute Basophils 0.1 10^3/uL (0-0.2); Absolute Eosinophils 0.2 10^3/uL (0-0.7); Absolute Immature Granulocytes 0.1 10^3/uL (0-0.05); Absolute Lymphocytes 1.2 10^3/uL (1.2-3.4); Absolute Neutrophils 8.5 10^3/uL (1.4-6.5); Hematocrit 38.9 % (37.0-47.0); Hemoglobin 13.1 g/dL (12.0-16.0); Mean Corp Hgb Conc. 33.7 g/dL (33.0-37.0); Mean Corpuscular Hgb 28.9 pg (27.0-31.0); Mean Corpuscular Volume 85.7 fL (81.0-99.0); Mean Platelet Volume 8.5 fL (7.4-10.4); Nucleated Red Blood Cells % 0 %; Platelet Count 582 10^3/uL (130-400); Red Blood Cell Count 4.54 10^6/uL (4.20-5.40); Red Cell Dist. Width 13.8 % (11.5-14.5)
[2023-08-19 18:00] LABS: ALT (SGPT) 10 U/L (0-35); AST (SGOT) 14 U/L (14-36); Albumin 3.6 g/dl (3.5-5.0); Alkaline Phosphatase 106 U/L (38-126); Blood Urea Nitrogen 17 mg/dl (7-17); Calcium 9.4 mg/dl (8.4-10.2); Carbon Dioxide 29 mmol/L (22-30); Chloride 100 mmol/L (98-107); Glucose 137 mg/dl (70-99); Potassium 4.4 mmol/L (3.5-5.1); Sodium 137 mmol/L (135-145); Total Bilirubin 0.5 mg/dl (0.2-1.3); Total Protein 6.3 g/dl (6.3-8.2); eGFR > 60.00
[2023-08-19 18:07] VITALS: BP 130/80
[2023-08-19 18:11] LABS: Troponin I < 0.012 ng/ml
[2023-08-19 19:00] VITALS: BP 115/71
--- NOTE | 2023-08-19 20:21 | ED.GENMED ---
History of Present Illness
General
Chief Complaint: Breathing Problem
Source: patient and spouse
Time Seen by Provider: 08/19/23 18:06
Nursing documentation reviewed up to this point in time: agreed with
History of Present Illness
History of Present Illness:
Patient to ED wt complaint of increasing SOB, weakness and fatigue. History of COPD, recently inpatient for exacerbation. States over the past 2 days her breathing has become worse. Denies fever/chills. SHe was seen by PCP today for unrelated
issue - she reports right ear drainage x 3 weeks. During her exam, PCP noted increasing SOB, low pulse ox and tachycardia. Advised to come to ED.
Past History
Past History
ED Past Medical History: Arrthythmia (afib), COPD, HTN and Other (New diagnosis right lobular breast CA)
Social History
Tobacco: Former smoker
Alcohol: None
Drug: None
Review of Systems
Review of Systems
Constitutional: Reports fatigue
EENT: Reports no symptoms
Respiratory: Reports cough and trouble breathing
Cardiac: Reports no symptoms
ABD/GI: Reports no symptoms
: Reports no symptoms
Musculoskeletal: Reports no symptoms
Skin: Reports no symptoms
Neurological: Reports weakness
Psychiatric: Reports no symptoms
Phy Exam
General Physical Exam
General Presentation: mild distress
General age: appears stated age
General Skin: warm and dry
General Habitus: normal
General Mental: alert
Cardiovascular Exam
Cardiovascular Exam: regular rate/rhythm
Pulmonary Exam
Pulmonary Exam: chest non tender and decreased breath sounds
Gastrointestinal Exam
Gastrointestinal Exam: normal bowel sounds, non tender, soft, no organomegaly, non distended and no cva tenderness
Musculoskeletal Exam
Musculoskeletal Exam: full ROM and neuro vasc intact
Skin Exam
Skin Exam: normal color, warm/dry and no rash
Psychiatric Exam
Psychiatric Exam: normal mood/affect
Scores
Heart Failure Risk
Heart Failure Risk Score: Not Applicable
Course
Orders/Labs/Results
Orders:
Orders
08/19/23 Breakfast
Cholesterol Lowering
At Your Request: Full Participation
Cholesterol Lowering: Sodium, 2 Gram
08/19/23 17:08
Electrocardiogram (*1) Urgent
Reason for Study: Other
Other Reason for Exam: abnormal EKG
08/19/23 17:09
EKG- Treatment ONCE
08/19/23 17:36
Complete Blood Count/With Diff Urgent
Comprehensive Metabolic Panel Urgent
Troponin I Urgent
08/19/23 18:09
CR Chest - 2 Views Urgent
Comment:
Reason For Exam: SOB
08/19/23 20:47
LevoFLOXacin 750 MG/150 ML [Levaquin] 750 mg in 150 ml IV NOW
08/19/23 21:22
CT Head W/o Iv Contrast Stat
Comment:
Reason For Exam: Headache, Otorrhea
08/19/23 21:33
Admit/Transfer Patient As Directed
Co-Sign Provider:
Level of Care: Inpatient admission
Assign to:: Telemetry
Physician / Group: aiden
Diagnosis: pneumonia
Reason for Telemetry: Arrhythmia
Date to Stop Telemetry: 08/22/23
Time to Stop Telemetry: 11:00
Reason for Hospitalization: pneumonia
Expected length of stay greater than two midnights?: Yes
ELOS- Estimated Length of Stay in days: 3
I certify the patient meets the requirements for IP care: Yes
08/19/23 21:34
Code Status As Directed
Resuscitation Status: Do not resuscitate
Reached after discussion with pt or family/Healthcare POA: Yes
DNR Bracelet Application ONCE
08/19/23 22:42
Acetaminophen [Tylenol] 650 mg PO Q4HPRN PRN
Ipratropium/Albuterol Sulfate [Duoneb] 3 ml INH R Q4HPRN PRN
08/19/23 22:42
PULMONARY CONSULT Routine
Consulting Provider: Esther Méndez
Was physician already notified: Yes
[facility] Urinary Antigen Routine
ELISABETH Source: Urine
Specimen Description:
Activity As Directed
Activity Level: Out of Bed-Early Mobility
Intake/ Output As Directed
Frequency: Per unit guidelines
Vital Signs As Directed
Frequency: Per unit guidelines
Weight As Directed
Frequency: Once
Comment: on admission
O2 Therapy [RESP] Routine
Titrate/Wean O2 to maintain O2 sat greater than (%): 92
Special Instructions: Wean as tolerated
Pt Eval And Treat Routine
Activity Level: As Tolerated
08/20/23 00:00
CefTRIAXone [Rocephin] 1,000 mg IV Q24H
Doxycycline Hyclate [Vibramycin] 100 mg 0.9% Sodium Chloride 250 ml [Nss] 250 ml IV Q12H
08/20/23 06:00
Basic Metabolic Panel IN AM
Complete Blood Count/No Diff IN AM
08/20/23 08:00
Amlodipine [Norvasc] 10 mg PO DAILY
Apixaban [Eliquis] 5 mg PO BID
Budesonide/Formoterol 80/4.5 [Symbicort 80/4.5 Mcg Inhaler] 2 puff INH R BID
08/21/23 06:00
Basic Metabolic Panel IN AM
Complete Blood Count/No Diff IN AM
08/22/23 06:00
Basic Metabolic Panel IN AM
Complete Blood Count/No Diff IN AM
08/22/23 11:00
DC Protocol for Telemetry ONCE
08/23/23 06:00
Basic Metabolic Panel IN AM
Complete Blood Count/No Diff IN AM
08/24/23 06:00
Basic Metabolic Panel IN AM
Complete Blood Count/No Diff IN AM
Abnormal Lab Results
08/19/23
17:36
WBC 11.0 H 10^3/uL
(4.8-10.8)
Plt Count 582 H 10^3/uL
(130-400)
Abs Immat Gran (auto) 0.1 H 10^3/uL
(0-0.05)
Absolute Neuts (auto) 8.5 H 10^3/uL
(1.4-6.5)
Absolute Monos (auto) 1.0 H 10^3/uL
(0.1-0.6)
Immature Gran % 0.8 H %
(0-0.5)
Neutrophils % 77.0 H %
(42.2-75.2)
Lymphocytes % 11.1 L %
(20.5-51.1)
Glucose 137 H mg/dl
(70-99)
08/19/23 17:36
08/19/23 17:36
Vital Signs
Initial and Last Documented VS:
Initial Vital Signs
Temp Pulse Resp BP Pulse Ox
97.5 F 116 22 149/98 93
08/19/23 17:13 08/19/23 17:13 08/19/23 17:13 08/19/23 17:13 08/19/23 17:13
Last Documented Vital Signs
Temp Pulse Resp BP Pulse Ox
97.5 F 105 17 136/84 95
08/19/23 17:13 08/19/23 21:45 08/19/23 21:45 08/19/23 21:00 08/19/23 21:45
*Radiology
Radiology exam reviewed: radiology read reviewed
*Pulse Oximetry
Patient hypoxic: yes
Comment: 91% at rest, 85% minimal activity
*Critical Care Note
Total Time (30-74mins, 75-104mins- exclusive of procedures): Not Applicable
ED Attending Note
-
Portions of this chart may have been created with voice recognition software.� Occasional wrong word or��sound alike� substitutions may have occurred due to the inherent limitations of voice recognition software.
Discharge Plan
Departure
Patient Disposition: Admit
Date of Disposition: 08/19/23
Time of Disposition: 20:32
Presentation/result/management discussed w/ accepting MD/DO: Hospitalist
Condition: Fair
Discharge Problem:
Pneumonia
Interventions
Interventions:
*Risk Screen - Suicide Last Done: 08/19/23 17:13
*General Assessment Last Done: 08/19/23 17:13
*Neglect/Abuse Screening Last Done: 08/19/23 17:13
ED- Fall Risk Assessment Last Done: 08/19/23 19:04
*ED COVID-19 Vaccine History Last Done: 08/19/23 22:34
*Nursing Disposition Last Done: 08/19/23 22:34
ED- Cardiac Assessment Last Done: 08/19/23 19:04
ED- Pulmonary Assessment Last Done: 08/19/23 19:04
Discharge Date and Time
Discharge Date/Time: 08/19/23 22:35
[2023-08-19 20:35] VITALS: BP 131/79
--- NOTE | 2023-08-19 20:52 | HPS.HSE ---
Addendum entered and electronically signed by Eh Bernstein DO 08/19/23 23:14:
Patient seen and examined independently. Agree with findings and plan as set forth by DALLAS Mata.
Patient is a 78y F with PMH significant for COPD, A-Fib, HTN and recently diagnosed breast cancer who presents to ED complaining of SOB, dizziness, copious R ear drainage and fatigue. Patient was seen by her PCP for these complaints and was
noted to be tachycardic with rates in the 130s in the office. She was referred to the ED for further evaluation. Patient was recently diagnosed with breast cancer. Her surgery has been postponed due to hospitalization last month for COPD. She is
followed by Dr. Jean-Baptiste.
Ass:
Hypoxemic Respiratory Insufficiency
RML Pneumonia
Otorrhea
Right Breast Cancer
Paroxysmal A-Fib
Benign Hypertension
History of DVT
COPD without Acute Exacerbation
Plan:
Admit for further evaluation and treatment.
CT head done in the ED with no significant abnormality.
IV abx for now for possible pneumonia - ? radiographic abnormality related to recently diagnosed malignancy?
Supportive care including O2 support, nebs, etc.
Follow for clinical improvement.
ENT evaluation given significant reported otorrhea.
Continue usual home medications including Eliquis.
Original Note:
Family Physician
-
Family Physician: Yeni Jaimes
Chief Complaint
-
ear drainage
History of Present Illness
78 year old with Right breast cancer, COPD, atrial fib,HTN presented to us with elevated HR from PCP office. patient was noted to have clear drainage from right only when she is laying down on her right side at night for past three weeks. she stated
hearing loss at that time. when she sleeps on her left side, she feels disequilibrium. she was evaluated by PCP today and noted to have HR of 137 on EKG, which prompted her to come to the ER. patient complained of worsening of sob, which is worse
with activity. she was noted very weak, fatigue, sleeping more than usual. at times, she feels like her HR is racing, palpitation. family stated poor appetite and lost 45lbs in one year. denied VALENCIA, dizzy or syncopal episode. denied fever, chills,
chest pain. denied abdominal pain,n ,v,d. denied dysuria or hematuria.
chest x ray with the impression of Mild amount of opacity in the right middle lobe and lingula which appears to have increased in the right middle lobe since 07/20/2023. Diagnostic possibilities are (1) mild pneumonia or peripheral endobronchial
infection (possibly atypical mycobacterial infection) or (2) mild subsegmental atelectasis/scarring.
2. Mild bilateral lung hyperinflation.
3. Moderate-sized bilateral pericardial fat pads.
patient received Levaquin in ER. admitting for further management.
Medical History
Past Medical History
Past Medical History: Reports Other
Additional Past Medical History:
HTN
right breast ca
nodular lesion on skin
COPD
paroxysmal atrial fib
TIA
DVT
liposarcoma of right leg
pneumonia
Past Surgical History: Reports Other
Additional Past Surgical History:
lipoma removal
basal cell removal
cataracts surgery
Social History
Tobacco: Former Smoker
Alcohol: None
Drug: None
Personal:
Living: With Family
Family History
Family History: Not pertinent
Allergies / Home Medications
Allergies reflects when Allergies were last updated in [employer]
Home Medications with original date entered in [employer]
Allergy/Medication List:
Allergies
Allergy/AdvReac Type Severity Reaction Status Date / Time
Macrolide Antibiotics Allergy Hives Verified 08/19/23 17:12
Penicillins Allergy Hives Verified 08/19/23 17:12
pentazocine [From [facility]] Allergy Anaphylaxis Verified 08/19/23 17:12
pseudoephedrine Allergy Hives Verified 08/19/23 17:12
[facility]
telithromycin Allergy Hives Verified 08/19/23 17:12
Home Medications
amlodipine 10 mg tablet 10 mg PO DAILY Blood Pressure 09/06/22
cholecalciferol (vitamin D3) 50 mcg (2,000 unit) tablet 50 mcg PO DAILY Supplement 09/06/22
tiotropium bromide 18 mcg capsule with inhalation device (Spiriva with HandiHaler) 1 cap inhalation R DAILY Lung/Breathing Issues 09/06/22
apixaban 5 mg tablet (Eliquis) 5 mg PO BID Blood Clot Prevention/Tx 07/20/23
zinc sulfate 50 mg zinc (220 mg) capsule 50 mg PO DAILY Supplement 07/21/23
ipratropium 0.5 mg-albuterol 3 mg (2.5 mg base)/3 mL nebulization soln 3 ml inhalation R Q4HPRN PRN shortness of breath #90 mL 07/25/23
acetaminophen 500 mg tablet (Tylenol Extra Strength) 1,000 mg PO HSPRN PRN mild pain 08/19/23
fluticasone furoate 100 mcg-vilanterol 25 mcg/dose inhalation powder (Breo Ellipta) 1 inh inhalation R DAILY 08/19/23
vitamin C 500 mg-multivitamin with minerals chewable tablet (Emergen-C) 1 tab PO DAILY 08/19/23
Review of Systems
-
Constitutional: Reports Weight Loss, Fatigue and Chills
EENT: Reports Other (ear drainage)
Respiratory: Reports Trouble Breathing
Cardiac: Reports Palpitations
Abdomen/GI: Reports No Symptoms
: Reports No Symptoms
Musculoskeletal: Reports No Symptoms
Skin: Reports No Symptoms
Neurological: Reports No Symptoms
Endocrine: Reports No Symptoms
Hematologic/Lymphatic: Reports No Symptoms
Psych: Reports No Symptoms
Physical Exam
Vital Signs
Vital Signs
Temp Pulse Resp BP Pulse Ox
97.5 F 101 29 115/71 91
08/19/23 17:13 08/19/23 19:30 08/19/23 19:30 08/19/23 19:00 08/19/23 19:30
Physical Exam
General: Well Developed, Well Nourished and No Apparent Distress
HEENT: NormoCephalic, Moist mucous membranes and Atraumatic
Respiratory: Decreased Breath Sounds
Cardiac: S1/S2 and Regular Rhythm; No Murmur or Rub
GI: Soft, Non Tender, Non Distended and Normal Bowel Sounds; No Organomegaly
Rectal: Deferred by Provider
Musculoskeletal: No Clubbing, No Cyanosis and No Edema
Skin: No Rash
Neuro: AO x 3 and Nonfocal/grossly intact
Psych: Calm
Laboratory Results
-
08/19/23 17:36
08/19/23 17:36
Laboratory Results
Total Bilirubin 0.5 mg/dl (0.2-1.3) 08/19/23 17:36
AST 14 U/L (14-36) 08/19/23 17:36
ALT 10 U/L (0-35) 08/19/23 17:36
Alkaline Phosphatase 106 U/L (38-126) 08/19/23 17:36
Troponin I < 0.012 ng/ml 08/19/23 17:36
Data Reviewed
-
Diagnostic Radiology: Report Reviewed by me
Lab Data: Labs Reviewed by me
Impression/Plan
-
# sob likely from pneumonia
-wbc 11.0
-chest x ray with Mild amount of opacity in the right middle lobe and lingula which appears to have increased in the right middle lobe since 07/20/2023. Diagnostic possibilities are (1) mild pneumonia or peripheral endobronchial infection (possibly
atypical mycobacterial infection) or (2) mild subsegmental atelectasis/scarring. Mild bilateral lung hyperinflation. Moderate-sized bilateral pericardial fat pads.
-Levaquin in ER
-Tylenol prn for fever, and pain
-ceftriaxone and doxy continued
-continue supplemental oxygen to keep sat>92
-wean as tolerated
-Pulmonary consulted
#otorrhea unclear cause
-CT head ordered
-consider ENT consult based on CT findings.
#recent dx of R breast cancer
- for Mastectomy, follow [facility] as outpatient
#PAF
- EKG with SINUS TACHYCARDIA
- on Eliquis
#Hx of CVA 2000
#Essential HTN
- continue Amlodipine
#hxt of COPD
-breo continued
-nebs prn for sob/wheezing
DVT ppx: Eliquis
Code: DNR
[2023-08-19 21:00] VITALS: BP 136/84
[2023-08-19] MEDS: LEVAQUIN 150 IV (21:03)
[2023-08-19 22:45] VITALS: BP 130/69; BMI 25.0
[2023-08-19] MEDS: ROCEPHIN 1000 MG IV (23:45)
[2023-08-19] MEDS: STERILE WATER FOR INJECTION 10 ML IV (23:46)
[2023-08-20] MEDS: VIBRAMYCIN 260 MG IV (00:05)
[2023-08-20 02:49] VITALS: BP 114/61
--- NOTE | 2023-08-20 06:35 | PTCARENOTE ---
Pt admitted to 3W, AAOx3. No c/o pain. Pt afebrile, VSS. Pt on 2L O2. Lungs clear, diminished. Call faria within reach. Awaiting further plan.
[2023-08-20 06:40] LABS: Hemoglobin 11.4 g/dL (12.0-16.0); Mean Corp Hgb Conc. 31.7 g/dL (33.0-37.0); Mean Corpuscular Hgb 28.1 pg (27.0-31.0); Mean Corpuscular Volume 88.9 fL (81.0-99.0); Mean Platelet Volume 8.7 fL (7.4-10.4); Platelet Count 507 10^3/uL (130-400); Red Blood Cell Count 4.05 10^6/uL (4.20-5.40); Red Cell Dist. Width 13.6 % (11.5-14.5); White Blood Cell Count 9.6 10^3/uL (4.8-10.8)
[2023-08-20 07:00] VITALS: BP 131/84
[2023-08-20 07:05] LABS: Blood Urea Nitrogen 18 mg/dl (7-17); Carbon Dioxide 28 mmol/L (22-30); Chloride 104 mmol/L (98-107); Estimated Creatinine Clearance 65 ml/min; Glucose 102 mg/dl (70-99); Potassium 4.3 mmol/L (3.5-5.1); Sodium 138 mmol/L (135-145); eGFR > 60.00
[2023-08-20] MEDS: SYMBICORT 80/4.5 MCG INHALER 2 PUFF INH ×2 (08:15→19:39)
--- NOTE | 2023-08-20 08:31 | CON.PUL ---
Consultation
Consultation Request
Date/Time Consultation Requested: 08/19/2023 - 2241
Date/Time Consultation Performed: 08/20/2023 - 937
Requesting Provider: DALLAS Mata
Performing Provider: Rj Tolliver MD
Reason for Consultation: Hx of COPD
Medical History
-
Chief Complaint: SOB
History of Present Illness:
78-year-old female with a past medical history of severe COPD, tobacco use disorder, lung nodules, hypertension, nocturnal hypoxia on 2 L/min nasal cannula, history of snoring, paroxysmal A-fib on Eliquis, history of DVT, recently diagnosed invasive
lobular carcinoma diagnosed in June 2023 and DINORAH who presents from PCPs office due to hypoxia to 89%, tachycardia with shortness of breath. Patient saw our her PCPs office on 08/19/2023 due to fluid leaking from right ear. No ear pain and she has
seen ENT in the past due to right ear issues. She was found to be tachycardic during the office visit to 111 and hypoxic to 89% with walking pulse oximetry performed in the office with luisa SpO2 89% with average SpO2 91-92% at rest. Patient was
referred to the ER where she was tachycardic to 116, tachypneic to 22 breaths/min, SpO2 93% on room air, afebrile to 97.5 �F and BP 149/98. EKG showed sinus tachycardia with VR 113 bpm with LBBB with negative Sgarbossa criteria. Initial labs
showed mild leukocytosis to 11, thrombocytosis to 582, negative troponin of <0.012, with CXR showing opacification in the RML + lingula due to infection versus atelectasis. Patient given Levaquin and admitted to the hospitalist service. Pulmonary
now consulted for additional management/recommendations.
When I saw the patient, she was in bed in no acute distress. She currently denies SOB but still feels reduced energy, with no cough, fevers, chills and her breathing is stable and at her baseline. Regarding her right ear, it has been leaking
sometimes where it drips onto a pillow at night but she denies ear pain, maxilla�facial fullness/pain or retro-orbital headache. She says that when she was here in the ER at that a provider looked in her ear and said that there was wax but
otherwise eardrum looked intact. She currently denies headache, chest pain, abdominal pain, nausea, fevers or chills.
Of note patient follows with us in the office with Dr. Villafana, with last office visit on 08/14/2023 with DALLAS Nguyen. Last PFT on 04/18/2023 showed severe COPD with equivocal bronchodilator response, with borderline mild restrictive lung
defect and moderate gas exchange capacity defect which is preserved when accounting for alveolar volume involving gas exchange (DLco: 58%, DLco/VA: 79%). She has severe COPD and is maintained on Breo 200mcg + Spiriva HandiHaler with as needed
albuterol. 6MWT showed she did not need oxygen with exertional tachycardia noted likely due to deconditioning. Pulmonary rehab was discussed however she had lots going on with newly diagnosed breast cancer with eventual plan mastectomy. She had
quit smoking for the entire month of July. She is planned to follow-up with us next in October 2023.
PMHx: Severe COPD, former tobacco use disorder, pulmonary nodules, hypertension, TIA, nocturnal hypoxia on 2 L/min, history of snoring, LBBB, paroxysmal A-fib on Eliquis, BCC of the face, history of DVT, liposarcoma of the right leg (2020), history
of pneumonia, history of chronic bronchitis, colonic polyps, right breast invasive lobular carcinoma diagnosed June 2023, DINORAH
PSHx: Lipoma removal, basal cell removal (01/2023), cataract with lens implants (2007, 2013), Mohs procedure on face, ultrasound-guided right breast biopsy
Past Medical History
Past Medical History: Other (Above as per HPI)
Past Surgical History: Other (Above as per HPI)
Social History
Tobacco: Former Smoker (Started smoking at age 17, 0.5 PPD; quit in June 2023)
Alcohol: None
Drug: None
Personal:
Living: With Family
Family History
Family History: CAD (Father), Hypertension (Father + siblings) and Other (Paternal grandfather: COPD)
Allergies / Home Medications
Allergies
Allergy/AdvReac Type Severity Reaction Status Date / Time
Macrolide Antibiotics Allergy Hives Verified 08/19/23 17:12
Penicillins Allergy Hives Verified 08/19/23 17:12
pentazocine [From Talwin] Allergy Anaphylaxis Verified 08/19/23 17:12
pseudoephedrine Allergy Hives Verified 08/19/23 17:12
[From Sudafed]
telithromycin Allergy Hives Verified 08/19/23 17:12
Home Medications
�Medication �Instructions �Recorded �Confirmed �Last Taken �Type
amlodipine 10 mg tablet 10 mg PO DAILY Blood Pressure 09/06/22 08/19/23 08/19/23 History
cholecalciferol (vitamin D3) 50 50 mcg PO DAILY Supplement 09/06/22 08/19/23 08/19/23 History
mcg (2,000 unit) tablet
tiotropium bromide 18 mcg capsule 1 cap inhalation R DAILY 09/06/22 08/19/23 08/19/23 History
with inhalation device (Spiriva Lung/Breathing Issues
with HandiHaler)
apixaban 5 mg tablet (Eliquis) 5 mg PO BID Blood Clot 07/20/23 08/19/23 08/19/23 History
Prevention/Tx
zinc sulfate 50 mg zinc (220 mg) 50 mg PO DAILY Supplement 07/21/23 08/19/23 08/19/23 History
capsule
ipratropium 0.5 mg-albuterol 3 mg 3 ml inhalation R Q4HPRN PRN 07/25/23 08/19/23 08/18/23 Rx
(2.5 mg base)/3 mL nebulization shortness of breath #90 mL
soln
acetaminophen 500 mg tablet 1,000 mg PO HSPRN PRN mild pain 08/19/23 08/19/23 08/18/23 History
(Tylenol Extra Strength)
fluticasone furoate 100 1 inh inhalation R DAILY 08/19/23 08/19/23 08/19/23 History
mcg-vilanterol 25 mcg/dose
inhalation powder (Breo Ellipta)
vitamin C 500 mg-multivitamin with 1 tab PO DAILY 08/19/23 08/19/23 08/19/23 History
minerals chewable tablet
(Emergen-C)
Review of Systems
-
History Source: Patient
All other systems: Negative unless noted
Vitals / Labs / Diagnostic Testing
Vital Signs
Temp Pulse Resp BP Pulse Ox
98.3 F 91 16 114/61 95
08/20/23 02:49 08/20/23 02:49 08/20/23 02:49 08/20/23 02:49 08/20/23 02:49
Lab Data
08/20/23 06:13
08/20/23 06:13
Diagnostic Testing:
Physical Exam
-
HEENT: Normocephalic and Anicteric
Cardiovascular: Peripheral Edema (Negative) and Other (Normal rate)
Respiratory: Wheeze (Negative), Rales (Bibasilar), Rhonchi (Negative) and Non-Labored Respirations
GI: Soft, Non Distended, Non Tender and Normal Bowel Sounds
Neurology: AO x 3 and Tremors (Negative)
Skin: Warm and Dry
General: Respiratory Distress (Negative) and Comfortable
Assessment
-
Assessment: 78-year-old female with a past medical history of severe COPD, tobacco use disorder, lung nodules, hypertension, nocturnal hypoxia on 2 L/min nasal cannula, history of snoring, paroxysmal A-fib on Eliquis, history of DVT, recently
diagnosed invasive lobular carcinoma diagnosed in June 2023 and DINORAH who presents from PCPs office due to hypoxia to 89%, tachycardia with shortness of breath. Patient saw our her PCPs office on 08/19/2023 due to fluid leaking from right ear. No ear
pain and she has seen ENT in the past due to right ear issues. She was found to be tachycardic during the office visit to 111 and hypoxic to 89% with walking pulse oximetry performed in the office with luisa SpO2 89% with average SpO2 91-92% at
rest. Patient was referred to the ER where she was tachycardic to 116, tachypneic to 22 breaths/min, SpO2 93% on room air, afebrile to 97.5 �F and BP 149/98. EKG showed sinus tachycardia with VR 113 bpm with LBBB with negative Sgarbossa criteria.
Initial labs showed mild leukocytosis to 11, thrombocytosis to 582, negative troponin of <0.012, with CXR showing opacification in the RML + lingula due to infection versus atelectasis. Patient given Levaquin and admitted to the hospitalist
service. Pulmonary now consulted for additional management/recommendations.
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
leg (2020), history of pneumonia, history of chronic bronchitis, colonic polyps, right breast invasive lobular carcinoma diagnosed June 2023, DINORAH
Impression:
#Abnormal CXR with opacification involving RML/RLL (likely subsegmental atelectasis as she clinically does not have any signs or symptoms consistent with pneumonia)
#Acute respiratory failure with hypoxia - now breathing comfortably on room air
#Right ear otorrhea
#Thrombocytosis with platelet count 507 - likely reactive possibly due to ear infection v other unknown etiology
#Fatigue
#LBBB with negative Sgarbossa criteria
#Recently diagnosed ER+/CA+, HER2 (-) right breast invasive lobular carcinoma Dx via ultrasound-guided biopsy on 06/24/2023
#Severe COPD on Breo 200mcg + Spiriva HandiHaler and prn albuterol at home - not currently in a COPD exacerbation
#History of tobacco use disorder
#History of nocturnal hypoxia on 2 L/min
Plan:
- Patient currently on ceftriaxone/doxycycline --> I have low suspicion for pneumonia given she lacks clinical signs and symptoms; regardless would continue empiric antibiotics considering she is having right ear symptoms, recommend changing
ceftriaxone to Unasyn and continue with doxycycline (need to confirm her PCN allergy)
- Check infectious workup with blood cultures, sputum cultures, urine antigens for Legionella + strep pneumonia as well as MRSA swab
- Would plan for at least 5 days antibiotic
- ENT consult pending for right ear otorrhea
- Maintain SpO2 >88-94% with supplemental O2 and wean as tolerated
- Incentive spirometer encouraged 10x per hour for at least 4 hours a day
- PT/OT
- Patient is on Breo + Spiriva at home � continue with Symbicort + Spiriva while hospitalized with as needed albuterol
- If SOB progresses then would stop maintenance inhalers and continue with nebulized bronchodilators ATC - she is not currently bronchospastic and is breathing comfortably on room air, hence no need to change inhalers at this time
- No need for systemic steroids at this time as she is not in an acute COPD exacerbation
- Recheck TSH with free T4 given her ongoing fatigue
- Replete electrolytes with K>4, Mg>2
- Maintain euglycemia with goal BG >100 and <180
- Trend platelet count, and if platelet count does not improve with antibiotics then consult hematology
- DVT ppx
Pulmonary service will continue to follow along.
Total time spent today was 55 minutes for this encounter. Time includes reviewing laboratory test/imaging results, reviewing pertinent medical records, obtaining and reviewing medical history, performing an appropriate exam, ordering medications,
tests and procedures. Time also includes documentation of this encounter, coordinating patient care and communicating with other healthcare professionals. Total time does not include separately billed tests performed on this date of service.
Data:
CXR 08-19-2023:
1. Mild amount of opacity in the right middle lobe and lingula which appears to have increased in the right middle lobe since 07/20/2023. Diagnostic possibilities are (1) mild pneumonia or peripheral endobronchial infection (possibly atypical
mycobacterial infection) or (2) mild subsegmental atelectasis/scarring.
2. Mild bilateral lung hyperinflation.
3. Moderate-sized bilateral pericardial fat pads.
CT Head 08-19-2023:
1. No CT evidence for acute intracranial hemorrhage or hydrocephalus.
2. Mild white matter leukoaraiosis in both cerebral hemispheres.
3. Mild to moderate diffuse cerebral and cerebellar volume loss.
[2023-08-20] MEDS: ELIQUIS 5 MG PO ×2 (09:54→21:21)
[2023-08-20] MEDS: NORVASC 10 MG PO (09:54)
[2023-08-20 11:00] VITALS: BP 131/68
[2023-08-20] MEDS: VIBRAMYCIN 100 MG PO ×2 (12:08→21:21)
[2023-08-20 12:26] VITALS: PULSE 94; O2SAT 95
--- NOTE | 2023-08-20 13:08 | W.PN.HOSP.TC ---
Today's Communication/Plan
-
Continue antibiotics
Appreciate pulmonary and ENT
Assessment / Plan
Assessment / Plan
Physical Exam
General: Well Developed, Well Nourished and No Apparent Distress
HEENT: Normocephalic, Moist mucous membranes and Atraumatic
Respiratory: Decreased Breath Sounds
Cardiac: S1/S2 and Regular Rhythm
GI: Soft, Non Tender, Non Distended and Normal Bowel Sounds
Musculoskeletal: No Cyanosis and No Edema
Skin: Warm. Dry.
Neuro: AAO x 3 and Nonfocal/grossly intact
Psych: Calm

Assessment/Plan
#Dyspnea
#RML Pneumonia
#COPD
-Levaquin in ER
-Tylenol prn for fever, and pain
-ceftriaxone and doxy continued
-continue supplemental oxygen to keep sat>92
-wean as tolerated
-Pulmonary consulted, recommendations appreciated
#otorrhea unclear cause
-CT head ordered - CT head done in the ED with no significant abnormality.
-ENT consulted, recommendations appreciated
#recent dx of R breast cancer
- for Mastectomy, follows Dr. Jean-Baptiste as outpatient
#Paroxysmal A-Fib
- EKG with SINUS TACHYCARDIA
- on Eliquis
#History of DVT
-Continue Eliquis
#Hx of CVA 2000
#Essential HTN
- continue Amlodipine
#hxt of COPD
-breo continued
-nebs prn for sob/wheezing
DVT ppx: Eliquis
Code: DNR
Anticipated Discharge: 24 - 48 hours
Subjective/Interval History
-
Date of Service: August 20, 2023
Patient was seen and examined. She reported continued cough.
Objective Data
-
Labs:
Laboratory Results
08/20/23
06:13
WBC 9.6
Hgb 11.4 L
Hct 36.0 L
Plt Count 507 H
Sodium 138
Potassium 4.3
Chloride 104
Carbon Dioxide 28
BUN 18 H
Creatinine 0.7
Glucose 102 H
Calcium 9.0
Vital Signs:
Vital Signs
Temp Pulse Resp BP Pulse Ox
99.1 F 95 17 131/68 94
08/20/23 11:00 08/20/23 11:00 08/20/23 11:00 08/20/23 11:00 08/20/23 11:00
[2023-08-20 15:00] VITALS: BP 133/83
--- NOTE | 2023-08-20 15:28 | CM ---
Reviewed chart, met with patient to obtain information for assessment. Patient stated that she lives with her spouse in a one floor apartment with elevator access. Patient stated that she takes care of her spouse who has multiple dx and is w/c
bound. She confirmed that she has family close to assist her with him when needed.
Patient reported that she is independent with all ADLs, personal care, dressing, bathing and ambulates without device. 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
She wears o2 at night and confirmed that she has a concentrator as well as a nebulizer.
She has never had VN services.
Patient has not been to a SNF in the past.
Patient has a prescription plan and uses [facility] in [place] for all of her medications.
Her PCP is, Yeni Jaimes.
Patient feels physically that she is at baseline and would like to return home when medically stable.
Plan: Case management will continue to follow and assist with discharge planning. Home when cleared.
[2023-08-20 19:51] VITALS: BP 130/78
[2023-08-20] MEDS: TYLENOL 650 MG PO (21:26)
[2023-08-21] MEDS: ROCEPHIN 1000 MG IV (01:12)
[2023-08-21] MEDS: STERILE WATER FOR INJECTION 10 ML IV (01:13)
[2023-08-21 02:46] VITALS: BP 105/56
[2023-08-21 06:28] LABS: Hematocrit 36.1 % (37.0-47.0); Hemoglobin 11.5 g/dL (12.0-16.0); Mean Corp Hgb Conc. 31.9 g/dL (33.0-37.0); Mean Corpuscular Hgb 28.3 pg (27.0-31.0); Mean Corpuscular Volume 88.7 fL (81.0-99.0); Mean Platelet Volume 8.7 fL (7.4-10.4); Platelet Count 488 10^3/uL (130-400); Red Blood Cell Count 4.07 10^6/uL (4.20-5.40); Red Cell Dist. Width 13.6 % (11.5-14.5); White Blood Cell Count 8.1 10^3/uL (4.8-10.8)
[2023-08-21 06:51] LABS: Blood Urea Nitrogen 19 mg/dl (7-17); Calcium 9.4 mg/dl (8.4-10.2); Carbon Dioxide 31 mmol/L (22-30); Chloride 103 mmol/L (98-107); Estimated Creatinine Clearance 57 ml/min; Glucose 112 mg/dl (70-99); Potassium 4.6 mmol/L (3.5-5.1); Sodium 138 mmol/L (135-145); eGFR > 60.00
[2023-08-21 07:00] VITALS: BP 131/78
[2023-08-21 07:23] LABS: TSH Reflex To Free T4 0.59 uIU/ml (0.47-4.68)
[2023-08-21] MEDS: SYMBICORT 80/4.5 MCG INHALER 2 PUFF INH ×2 (08:05→19:55)
[2023-08-21] MEDS: SPIRIVA RESPIMAT 2.5 MCG 2 PUFF INH (08:05)
[2023-08-21] MEDS: VIBRAMYCIN 100 MG PO ×2 (08:07→20:02)
[2023-08-21] MEDS: NORVASC 10 MG PO (08:07)
[2023-08-21] MEDS: VITAMIN D3 (cholecalciferol) 50 MCG PO (08:07)
[2023-08-21] MEDS: ELIQUIS 5 MG PO ×2 (08:07→20:02)
[2023-08-21 11:00] VITALS: BP 112/74
--- NOTE | 2023-08-21 11:14 | W.PN.ENT ---
Today's Communication
-
seen at bedside
Impression / Plan
-
follow up in office as outpatient for evaluation with microscope and audiogram
Subjective Data
-
asked to see patient for right ear drainage
patient states she has clear discharge from right ear but only at night after she has slept for about an hour
denies ear pain
Objective Data
-
Vital Signs
Temp Pulse Resp BP Pulse Ox
98.3 F 86 16 131/78 94
08/21/23 07:00 08/21/23 08:07 08/21/23 07:00 08/21/23 08:07 08/21/23 07:00
Intake & Output
08/20/23 08/21/23 08/22/23
06:59 06:59 06:59
Intake:
Oral fluids 480 / 480
Other:
Number of approximated MODERATE 1
amounts of urine
Lab Results
08/21/23 06:03
08/21/23 06:03
Calcium 9.4 mg/dl (8.4-10.2) 08/21/23 06:03
Total Bilirubin 0.5 mg/dl (0.2-1.3) 08/19/23 17:36
AST 14 U/L (14-36) 08/19/23 17:36
ALT 10 U/L (0-35) 08/19/23 17:36
Alkaline Phosphatase 106 U/L (38-126) 08/19/23 17:36
CT head shows clear mastoids
Physical Exam
-
ears OK, no infection noted
Data Reviewed
-
Radiology Results: Report Reviewed
--- NOTE | 2023-08-21 13:13 | W.PN.PUL3 ---
Today's Communication / Plan
-
Transition to oral antibiotic regimen
Repeat chest x-ray in 3 to 4 weeks with pulmonary follow-up
Encourage compliance with nocturnal oxygen
Consider outpatient sleep evaluation
Disposition efforts
Assessment
-
Assessment: 78-year-old female with a past medical history of severe COPD, tobacco use disorder, lung nodules, hypertension, nocturnal hypoxia on 2 L/min nasal cannula, history of snoring, paroxysmal A-fib on Eliquis, history of DVT, recently
diagnosed invasive lobular carcinoma diagnosed in June 2023 and DINORAH who presents from PCPs office due to hypoxia to 89%, tachycardia with shortness of breath. Patient saw our her PCPs office on 08/19/2023 due to fluid leaking from right ear. No ear
pain and she has seen ENT in the past due to right ear issues. She was found to be tachycardic during the office visit to 111 and hypoxic to 89% with walking pulse oximetry performed in the office with luisa SpO2 89% with average SpO2 91-92% at
rest. Patient was referred to the ER where she was tachycardic to 116, tachypneic to 22 breaths/min, SpO2 93% on room air, afebrile to 97.5 �F and BP 149/98. EKG showed sinus tachycardia with VR 113 bpm with LBBB with negative Sgarbossa criteria.
Initial labs showed mild leukocytosis to 11, thrombocytosis to 582, negative troponin of <0.012, with CXR showing opacification in the RML + lingula due to infection versus atelectasis. Patient given Levaquin and admitted to the hospitalist
service. Pulmonary now consulted for additional management/recommendations.
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
leg (2020), history of pneumonia, history of chronic bronchitis, colonic polyps, right breast invasive lobular carcinoma diagnosed June 2023, DINORAH
Impression:
#Abnormal CXR with opacification involving RML/RLL (likely subsegmental atelectasis as she clinically does not have any signs or symptoms consistent with pneumonia)
#Acute respiratory failure with hypoxia - now breathing comfortably on room air
#Right ear otorrhea
#Thrombocytosis with platelet count 507 - likely reactive possibly due to ear infection v other unknown etiology
#Fatigue
#LBBB with negative Sgarbossa criteria
#Recently diagnosed ER+/ND+, HER2 (-) right breast invasive lobular carcinoma Dx via ultrasound-guided biopsy on 06/24/2023
#Severe COPD on Breo 200mcg + Spiriva HandiHaler and prn albuterol at home - not currently in a COPD exacerbation
#History of tobacco use disorder
#History of nocturnal hypoxia on 2 L/min
Plan:
At this time, patient appears to be subjectively and objectively improved.
On further questioning, primary complaint is fatigue, lack of energy upon waking up in the morning
Tolerating antibiotic course
Mild crackles at the right base noted
Chest x-ray with mild right lower lobe, right middle lobe infiltrate, atelectasis?
Moving forward
Consider transition to oral antibiotic, completed 5 days
Legionella and streptococcal pneumonia antigen negative, cultures negative to date
Will require follow-up chest x-ray in the next 3 to 4 weeks with pulmonary follow-up
Patient already on nocturnal oxygen, describes noncompliance
Recommend nocturnal oxygen every night
Would consider formal sleep evaluation. This can be followed up with Dr. Villafana
Incentive spirometry, out of bed to chair, ambulate
Continue with Breo + Spiriva at home
No indication for steroids
TSH normal
Disposition efforts noted
Reviewed with primary service and patient at length
Data:
CXR 08-19-2023:
1. Mild amount of opacity in the right middle lobe and lingula which appears to have increased in the right middle lobe since 07/20/2023. Diagnostic possibilities are (1) mild pneumonia or peripheral endobronchial infection (possibly atypical
mycobacterial infection) or (2) mild subsegmental atelectasis/scarring.
2. Mild bilateral lung hyperinflation.
3. Moderate-sized bilateral pericardial fat pads.
CT Head 08-19-2023:
1. No CT evidence for acute intracranial hemorrhage or hydrocephalus.
2. Mild white matter leukoaraiosis in both cerebral hemispheres.
3. Mild to moderate diffuse cerebral and cerebellar volume loss.
Subjective Data
-
Date of Service:
Date of Service: August 21, 2023
Subjective:
Patient examined earlier this morning. She is feeling better. She complains of fatigue and restlessness when she wakes up in the morning. This is her primary complaint. She has mild cough but no hemoptysis, chest pain, nausea, abdominal pain.
She denies PND, orthopnea
Objective Data
Data Reviewed
Vital Signs / I&O / Oxygen:
Vital Signs
Temp Pulse Resp BP Pulse Ox
98.1 F 104 16 112/74 100
08/21/23 11:00 08/21/23 11:00 08/21/23 11:00 08/21/23 11:00 08/21/23 11:00
Intake and Output
08/20/23 08/21/23 08/22/23
06:59 06:59 06:59
Intake Total 480 / 480
Balance 480 / 480
SaO2 100
Nasal Cannula flow liters per 2
minute
Physical Exam
General: Comfortable and Other (Large neck)
HEENT: Normocephalic and Anicteric
Cardiovascular: S1-S2, Regular Rhythm, Murmur (n), Rub (n), Peripheral Edema (n) and Calf Tenderness (n)
Respiratory: Wheeze (n), Crackles (Minimal right basilar crackles), Rhonchi (n) and Non-Labored Respirations
GI: Soft, Non Distended and Non Tender
Neurology: Awake, Alert and No Motor Deficits
Skin: Cyanosis (n), Jaundice (n) and Rash (n)
Labs/Micro/Reports
Lab Data
08/21/23 06:03
08/21/23 06:03
Microbiology
08/20/23 12:46 Blood/Venous Blood Culture - Preliminary
No Growth in 24 hours- Final report to follow
08/20/23 18:10 Urine Legionella Urinary Antigen - Final
Negative for Legionella pneumophila Serogroup 1 antigen.
A negative result does not rule out the possiblity of
Legionella infection due to other serogroups or species of
Legionella. Clinical correlation is recommended.
08/20/23 18:10 Urine Streptococcus pneumoniae Antigen (M - Final
Negative for Streptococcus pneumoniae antigen.
A negative result does not exclude infection with
Streptococcus pneumoniae. Clinical correlation is
recommended.
[2023-08-21 16:12] VITALS: BP 109/71
--- NOTE | 2023-08-21 16:37 | W.PN.HOSP.TC ---
Today's Communication/Plan
-
Discharge today
Assessment / Plan
Assessment / Plan
Physical Exam
General: Well Developed, Well Nourished and No Apparent Distress
HEENT: Normocephalic, Moist mucous membranes and Atraumatic
Respiratory: Mild right basilar crackles
Cardiac: S1/S2 and Regular Rhythm
GI: Soft, Non Tender, Non Distended and Normal Bowel Sounds
Musculoskeletal: No Cyanosis and No Edema
Skin: Warm. Dry.
Neuro: AAO x 3 and Nonfocal/grossly intact
Psych: Calm

Assessment/Plan
#Dyspnea
#RML Pneumonia with suspected atelectasis
#COPD
#History of nocturnal hypoxia on 2 L/min
-Levaquin in ER
-Tylenol prn for fever, and pain
-ceftriaxone and doxy continued: transition to Cefpodoxime 200 mg BID (6 more doses) and Doxycycline 100 mg BID (7 more doses)
-Repeat chest x-ray in 3 to 4 weeks with pulmonary follow-up with Dr. Villafana
-Encourage compliance with nocturnal oxygen
-Pulmonary consulted, recommendations appreciated
#Right Ear otorrhea
-CT head ordered - CT head done in the ED with no significant abnormality.
-ENT consulted, recommendations appreciated: follow up in ENT office as outpatient for evaluation with microscope and audiogram
#Recently diagnosed ER+/VT+, HER2 (-) right breast invasive lobular carcinoma Dx via ultrasound-guided biopsy on 06/24/2023
- for Mastectomy, follows Dr. Jean-Baptiste as outpatient
#Paroxysmal A-Fib
- on Eliquis: continue
#History of DVT
-Continue Eliquis
#Hx of CVA 2000
#Essential HTN
- continue Amlodipine
#Thrombocytosis
-Recheck CBC outpatient
#hxt of COPD
-breo continued
-nebs prn for sob/wheezing
#LBBB with negative Sgarbossa criteria
DVT ppx: Eliquis
Code: DNR
More than 30 minutes spent in discharge including
Final examination of the patient
Summarizing hospital stay
Instructions for continuing care to all relevant caregivers
Preparation of discharge records, prescriptions, and referral forms
Total time spent (in minutes): 40
Anticipated Discharge: Today
Subjective/Interval History
-
Date of Service: August 21, 2023
Patient was seen and examined. She reported chronic fatigue, but reported no new significant symptoms or complaints.
Objective Data
-
Labs:
Laboratory Results
08/21/23
06:03
WBC 8.1
Hgb 11.5 L
Hct 36.1 L
Plt Count 488 H
Sodium 138
Potassium 4.6
Chloride 103
Carbon Dioxide 31 H
BUN 19 H
Creatinine 0.8
Glucose 112 H
Calcium 9.4
Vital Signs:
Vital Signs
Temp Pulse Resp BP Pulse Ox
99.8 F 104 16 109/71 92
08/21/23 16:12 08/21/23 16:12 08/21/23 16:12 08/21/23 16:12 08/21/23 16:12
I&O
08/20/23 08/21/23 08/22/23
06:59 06:59 06:59
Intake Total 480 / 480
Balance 480 / 480
--- NOTE | 2023-08-21 17:04 | W.DS.TRANS ---
DC Summary - Vial Gauger
-
Discharge Instructions:
Discharge Diagnosis/Procedures #Dyspnea
#RML Pneumonia with suspected atelectasis
#COPD
#History of nocturnal hypoxia on 2 L/min
#Right Ear otorrhea
#Recently diagnosed ER+/KS+, HER2 (-) right
breast invasive lobular carcinoma Dx via
ultrasound-guided biopsy on 06/24/2023
#Paroxysmal A-Fib
#History of DVT
#History of CVA 2000
#Essential Hypertension
#Thrombocytosis
#COPD
#LBBB with negative Sgarbossa criteria
Diet Low Fat,Low Cholesterol
Activity As tolerated
Blood Work Recheck CBC and BMP with your primary care
provider within the next 1 week
Instructions: Cefpodoxime
Doxycycline
Stand-Alone Forms:
Changes to Home Medications: Yes
Discharge Medications:
DC Medications w/original date entered in [employer]
amlodipine 10 mg tablet 10 mg PO DAILY Blood Pressure 09/06/22
cholecalciferol (vitamin D3) 50 mcg (2,000 unit) tablet 50 mcg PO DAILY Supplement 09/06/22
tiotropium bromide 18 mcg capsule with inhalation device (Spiriva with HandiHaler) 1 cap inhalation R DAILY Lung/Breathing Issues 09/06/22
apixaban 5 mg tablet (Eliquis) 5 mg PO BID Blood Clot Prevention/Tx 07/20/23
zinc sulfate 50 mg zinc (220 mg) capsule 50 mg PO DAILY Supplement 07/21/23
ipratropium 0.5 mg-albuterol 3 mg (2.5 mg base)/3 mL nebulization soln 3 ml inhalation R Q4HPRN PRN shortness of breath #90 mL 07/25/23
acetaminophen 500 mg tablet (Tylenol Extra Strength) 1,000 mg PO HSPRN PRN mild pain 08/19/23
fluticasone furoate 100 mcg-vilanterol 25 mcg/dose inhalation powder (Breo Ellipta) 1 inh inhalation R DAILY Lung/Breathing Issues 08/19/23
vitamin C 500 mg-multivitamin with minerals chewable tablet (Emergen-C) 1 tab PO DAILY Supplement 08/19/23
cefpodoxime 200 mg tablet 200 mg PO Q12H #6 tabs 08/21/23
doxycycline hyclate 100 mg capsule 100 mg PO Q12 #7 caps 08/21/23
Home Medication Changes
Cefpodoxime and Doxycycline are new medications.
Pending Results: Yes
Additional Pending Results:
Final results of blood cultures from hospitalization
Total time spent discharging patient (in min): 40
--- NOTE | 2023-08-21 21:29 | CON.MD ---
Consultation - Medical
-
Chief complaint: Intermittent clear drainage from right ear
History of present illness: This 78-year-old woman who was recently diagnosed with breast cancer and who is admitted with pneumonia presents with a history of drainage from her right ear that she says occurs about an hour after she falls asleep.
The drainage is clear without evidence of any purulence or bleeding. She is otherwise healthy. She is not experiencing any ear pain. She has not had problems with vertigo. She feels her hearing is not as good on the right side as it is on the
left. She is not experiencing significant itching in the ear.
Past medical history:
Allergies: Macrolide antibiotics caused hives, penicillins cause hives, pentazocine causes anaphylaxis, pseudoephedrine causes hives, telithromycin causes hives
Home medications: Acetaminophen 1000 mg p.o. as needed mild pain
Amlodipine 10 mg p.o. daily
Cefpodoxime 200 mg p.o. every 12 hours
Cholecalciferol 50 mcg p.o. daily
Doxycycline 100 mg p.o. twice daily
Eliquis 5 mg p.o. twice daily
Emergen-C 1 tablet p.o. daily
Fluticasone furoate�Vilanterol 1 inhalation daily
Ipratropium bromide/albuterol 3 mL inhaled every 4 hours as needed shortness of breath
Tia Tropium bromide 1 capsule inhaled daily
Zinc sulfate 50 mg p.o. daily
Illnesses: Chronic respiratory failure with hypoxia paroxysmal atrial fibrillation, essential hypertension, atelectasis, COPD with acute exacerbation, acute asthmatic bronchitis, COPD, pneumonia,
Hospitalizations: The patient is currently hospitalized for pneumonia and drainage from her ear
Family history: Asked and is noncontributory for this problem
Review of systems: Positive for intermittent drainage from right ear at night, negative for chest pain, negative for abdominal pain.
Physical examination:
Head: Atraumatic and normocephalic
Eyes: Extraocular movements are intact, pupils are equal and reactive to light accommodation
Ears: Normal
Nose: Normal exam without infection
Oral cavity/oropharynx: Normal to examination without mass except for small venous kamara in right tonsil area, no suspicious lesions seen
Neck: Supple without adenopathy
Lungs: Clear
Heart: Clear
Cranial nerves II through XII are intact
Salivary glands are normal
Thyroid gland is normal
Impression/plan: This patient presents with intermittent drainage from her right ear at night. The drainage is clear without purulence. She does not have drainage during the day and has no pain. Her ear looks pretty normal and I am not sure to
what make of the clear drainage. She has noticed decreased hearing on the right side. I think she needs to be evaluated more thoroughly in the office and we can see her as an outpatient. She does not appear to have infection.
[2023-08-21 23:43] VITALS: BP 108/50
[2023-08-22] MEDS: ROCEPHIN 1000 MG IV (00:51)
[2023-08-22] MEDS: STERILE WATER FOR INJECTION 10 ML IV (00:51)
[2023-08-22 06:38] LABS: Hemoglobin 11.6 g/dL (12.0-16.0); Mean Corp Hgb Conc. 31.4 g/dL (33.0-37.0); Mean Corpuscular Hgb 27.9 pg (27.0-31.0); Mean Corpuscular Volume 88.9 fL (81.0-99.0); Mean Platelet Volume 8.7 fL (7.4-10.4); Platelet Count 494 10^3/uL (130-400); Red Blood Cell Count 4.16 10^6/uL (4.20-5.40); Red Cell Dist. Width 13.7 % (11.5-14.5); White Blood Cell Count 9.4 10^3/uL (4.8-10.8)
[2023-08-22 07:14] LABS: Blood Urea Nitrogen 21 mg/dl (7-17); Calcium 9.2 mg/dl (8.4-10.2); Carbon Dioxide 29 mmol/L (22-30); Chloride 102 mmol/L (98-107); Estimated Creatinine Clearance 76 ml/min; Glucose 116 mg/dl (70-99); Potassium 4.2 mmol/L (3.5-5.1); Sodium 139 mmol/L (135-145); eGFR > 60.00
[2023-08-22] MEDS: SYMBICORT 80/4.5 MCG INHALER 2 PUFF INH (07:38)
[2023-08-22] MEDS: SPIRIVA RESPIMAT 2.5 MCG 2 PUFF INH (07:38)
[2023-08-22 07:52] VITALS: BP 148/76
[2023-08-22] MEDS: ELIQUIS 5 MG PO (07:58)
[2023-08-22] MEDS: NORVASC 10 MG PO (07:58)
[2023-08-22] MEDS: VIBRAMYCIN 100 MG PO (07:58)
[2023-08-22] MEDS: VITAMIN D3 (cholecalciferol) 50 MCG PO (07:58)
[2023-08-22 08:15] VITALS: BP 141/81; BP 141/82
[2023-08-22 08:16] VITALS: BP 146/76
--- NOTE | 2023-08-22 10:36 | W.PN.PUL3 ---
Today's Communication / Plan
-
Complete 5 days of antibiotic
Repeat chest x-ray in 3 to 4 weeks with pulmonary follow-up
Encourage compliance with nocturnal oxygen
Consider outpatient sleep evaluation
Patient being prepared for discharge home. Outpatient follow-up will be arranged. Pulmonary service will now sign off. Please reconsult if there are any additional questions/concerns, or if patient's respiratory status deteriorates.
Assessment
-
Assessment: 78-year-old female with a past medical history of severe COPD, tobacco use disorder, lung nodules, hypertension, nocturnal hypoxia on 2 L/min nasal cannula, history of snoring, paroxysmal A-fib on Eliquis, history of DVT, recently
diagnosed invasive lobular carcinoma diagnosed in June 2023 and DINORAH who presents from PCPs office due to hypoxia to 89%, tachycardia with shortness of breath. Patient saw our her PCPs office on 08/19/2023 due to fluid leaking from right ear. No ear
pain and she has seen ENT in the past due to right ear issues. She was found to be tachycardic during the office visit to 111 and hypoxic to 89% with walking pulse oximetry performed in the office with luisa SpO2 89% with average SpO2 91-92% at
rest. Patient was referred to the ER where she was tachycardic to 116, tachypneic to 22 breaths/min, SpO2 93% on room air, afebrile to 97.5 �F and BP 149/98. EKG showed sinus tachycardia with VR 113 bpm with LBBB with negative Sgarbossa criteria.
Initial labs showed mild leukocytosis to 11, thrombocytosis to 582, negative troponin of <0.012, with CXR showing opacification in the RML + lingula due to infection versus atelectasis. Patient given Levaquin and admitted to the hospitalist
service. Pulmonary now consulted for additional management/recommendations.
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
leg (2020), history of pneumonia, history of chronic bronchitis, colonic polyps, right breast invasive lobular carcinoma diagnosed June 2023, DINORAH
Impression:
#Abnormal CXR with opacification involving RML/RLL (likely subsegmental atelectasis as she clinically does not have any signs or symptoms consistent with pneumonia)
#Acute respiratory failure with hypoxia - now breathing comfortably on room air
#Right ear otorrhea
#Thrombocytosis with platelet count 507 - likely reactive possibly due to ear infection v other unknown etiology
#Fatigue
#LBBB with negative Sgarbossa criteria
#Recently diagnosed ER+/HI+, HER2 (-) right breast invasive lobular carcinoma Dx via ultrasound-guided biopsy on 06/24/2023
#Severe COPD on Breo 200mcg + Spiriva HandiHaler and prn albuterol at home - not currently in a COPD exacerbation
#History of tobacco use disorder
#History of nocturnal hypoxia on 2 L/min
Plan:
At this time, patient appears to be subjectively and objectively improved.
On further questioning, primary complaint is fatigue, lack of energy upon waking up in the morning
Tolerating antibiotic course
Mild crackles at the right base noted
Chest x-ray with mild right lower lobe, right middle lobe infiltrate, atelectasis?
Moving forward
Consider transition to oral antibiotic, complete 5 days
Legionella and streptococcal pneumonia antigen negative, cultures negative to date
Will require follow-up chest x-ray in the next 3 to 4 weeks with pulmonary follow-up
Patient already on nocturnal oxygen, describes noncompliance
Recommend nocturnal oxygen every night
Would consider formal sleep evaluation. This can be followed up with Dr. Villafana
Incentive spirometry, out of bed to chair, ambulate
Continue with Breo + Spiriva at home
No indication for steroids
TSH normal
Disposition efforts noted
Reviewed with primary service and patient at length
Patient being prepared for discharge home. Outpatient follow-up will be arranged. Pulmonary service will now sign off. Thank you for allowing us to be involved in the care of this patient. Please reconsult if there are any additional
questions/concerns, or if patient's respiratory status deteriorates.
Total time spent today was 25 minutes for this encounter. Time includes reviewing laboratory test/imaging results, reviewing pertinent medical records, obtaining and reviewing medical history, performing an appropriate exam, ordering medications,
tests and procedures. Time also includes documentation of this encounter, coordinating patient care and communicating with other healthcare professionals. Total time does not include separately billed tests performed on this date of service.
Data:
CXR 08-19-2023:
1. Mild amount of opacity in the right middle lobe and lingula which appears to have increased in the right middle lobe since 07/20/2023. Diagnostic possibilities are (1) mild pneumonia or peripheral endobronchial infection (possibly atypical
mycobacterial infection) or (2) mild subsegmental atelectasis/scarring.
2. Mild bilateral lung hyperinflation.
3. Moderate-sized bilateral pericardial fat pads.
CT Head 08-19-2023:
1. No CT evidence for acute intracranial hemorrhage or hydrocephalus.
2. Mild white matter leukoaraiosis in both cerebral hemispheres.
3. Mild to moderate diffuse cerebral and cerebellar volume loss.
Subjective Data
-
Date of Service:
Date of Service: August 22, 2023
Chief Complaint: Pulmonary Follow Up
Subjective:
Patient seen and evaluated today at bedside. Walking around the room in no acute distress, eager to go home. She says that yesterday she did not take any Tylenol and her drainage did not happen, otherwise it is coming out of her ear. She denies
any ear pain, headache, chest pain, shortness of breath, fevers or chills. She is currently on room air breathing comfortably.
Review of Systems
General: Other (Negative unless mentioned above)
Objective Data
Data Reviewed
Vital Signs / I&O / Oxygen:
Vital Signs
Temp Pulse Resp BP Pulse Ox
98.5 F 101 18 146/76 94
08/22/23 07:52 08/22/23 08:16 08/22/23 07:52 08/22/23 08:16 08/22/23 07:52
Intake and Output
08/21/23 08/22/23 08/23/23
06:59 06:59 06:59
Intake Total 480 / 480 320 / 320
Balance 480 / 480 320 / 320
SaO2 94
Nasal Cannula flow liters per 2
minute
Physical Exam
General: Comfortable and Other (Thick neck)
HEENT: Normocephalic and Anicteric
Cardiovascular: S1-S2, Murmur (n), Rub (n), Peripheral Edema (+1 lower extremity edema bilaterally) and Calf Tenderness (n)
Respiratory: Wheeze (n), Crackles (Negative), Rhonchi (n), Non-Labored Respirations, Accessory Resp Muscle Use (Negative), Other (Coarse breath sounds heard bilaterally) and Other (Reduced breath sounds bilaterally)
GI: Soft, Non Distended and Non Tender
Neurology: AO x 3 and Tremors (n)
Skin: Warm, Dry, Cyanosis (n), Jaundice (n) and Rash (n)
Labs/Micro/Reports
Lab Data
08/22/23 06:12
08/22/23 06:12
Microbiology
08/20/23 13:36 Nose MRSA Screen - Final
No Methicillin Resistant Staphylococcus aureus isolated.
08/20/23 12:46 Blood/Venous Blood Culture - Preliminary
No Growth in 24 hours- Final report to follow
08/20/23 18:10 Urine Legionella Urinary Antigen - Final
Negative for Legionella pneumophila Serogroup 1 antigen.
A negative result does not rule out the possiblity of
Legionella infection due to other serogroups or species of
Legionella. Clinical correlation is recommended.
08/20/23 18:10 Urine Streptococcus pneumoniae Antigen (M - Final
Negative for Streptococcus pneumoniae antigen.
A negative result does not exclude infection with
Streptococcus pneumoniae. Clinical correlation is
recommended.
--- NOTE | 2023-08-22 10:58 | PN.CDI ---
CDI
- -
CDI:
Physician Documentation Request
Admit Date: 08/19/23 22:00
Dear Doctor Magalie,
Please review the following and provide your response in the progress notes.
Clinical Indicators:
- 7/2 H&P 'Hypoxemic Respiratory Insufficiency'
- 7/4 PN 'Dyspnea'
- 7/4 Pulmonary 'Acute respiratory failure with hypoxia'
- Documented 2L O2, pulse ox > 90% with history of COPD
Clarify which of the following accurately represents the patient's respiratory status:
Acute hypoxic respiratory failure
COPD with dyspnea - stable chronic disease
Other
Additional information for Respiratory Failure:
Recognized criteria for Respiratory Failure (Source: [facility] Dec 2012)
ABGs: (1 or more) Symptoms Please indicate type if known
1. p)2 <60 or RA SPO2 <91% on RA 1. Tachypnea, SOB, dyspnea Hypoxic
2. pCO2 50 and pH <7.35 2. Use of accessory muscles Hypercapnic
3. pO2 decrease of pCO2 increase by 3. Pallor or cyanosis Hypoxic and Hypercapnic
10 mmHg from baseline if known 4. Anxiety or restlessness Unable to determine
5. Unable to speak in full sentences
Supplemental O2 of > 40% (5LPM) Intubation is not required
Use of terms such as suspected, likely, concern for, or probable (associated with a specific diagnosis that is being evaluated, monitored, or treated as if it exists) are acceptable and can be coded in the inpatient setting, when documented at the
time of discharge.
Thank you,
Harrison Rahman RN
CDI Specialist
Please use your independent medical judgment in providing your response.
[2023-08-22 12:32] VITALS: BP 123/78; PULSE 106; O2SAT 92
--- NOTE | 2023-08-22 12:43 | W.PN.HOSP.TC ---
Addendum entered and electronically signed by Edwardo Mejias MD 08/22/23 13:04:
Acute hypoxic respiratory failure - RESOLVED
Original Note:
Today's Communication/Plan
-
Discharge today
Assessment / Plan
Assessment / Plan
Physical Exam
General: Not in acute distress
HEENT: Normocephalic, Moist mucous membranes and Atraumatic
Respiratory: Mild right basilar crackles
Cardiac: S1/S2 and Regular Rhythm
GI: Soft, Non Tender, Non Distended and Normal Bowel Sounds
Musculoskeletal: No Cyanosis and No Edema
Skin: Warm. Dry.
Neuro: AAO x 3. Cranial Nerves 2 through 12 grossly intact bilaterally. Strength and sensation grossly intact bilaterally. Steady gait that's unchanged from baseline (per patient and her ).
Psych: Calm

Assessment/Plan
#Dyspnea
#RML Pneumonia with suspected atelectasis
#COPD
#History of nocturnal hypoxia on 2 L/min
-Levaquin in ER
-Tylenol prn for fever, and pain
-ceftriaxone and doxy continued: transition to Cefpodoxime 200 mg BID (6 more doses) and Doxycycline 100 mg BID (7 more doses)
-Repeat chest x-ray in 3 to 4 weeks with pulmonary follow-up with Dr. Villafana
-Encourage compliance with nocturnal oxygen
-Pulmonary consulted, recommendations appreciated
#Right Ear otorrhea
-CT head ordered - CT head done in the ED with no significant abnormality.
-ENT consulted, recommendations appreciated: follow up in ENT office as outpatient for evaluation with microscope and audiogram
#Vertigo History
-Will send Meclizine 12.5 mg Q12H prn vertigo, to patient's pharmacy per her request - use only for symptomatic relief of episodes lasting several hours to days (with maximum duration: 3 days)
#Recently diagnosed ER+/FL+, HER2 (-) right breast invasive lobular carcinoma Dx via ultrasound-guided biopsy on 06/24/2023
- for Mastectomy, follows Dr. Jean-Baptiste as outpatient
#Paroxysmal A-Fib
- on Eliquis: continue
#History of DVT
-Continue Eliquis
#Hx of CVA 2000
#Essential HTN
- continue Amlodipine
#Thrombocytosis
-Recheck CBC outpatient
#hxt of COPD
-breo continued
-nebs prn for sob/wheezing
#LBBB with negative Sgarbossa criteria
DVT ppx: Eliquis
Code: DNR
More than 30 minutes spent in discharge including
Final examination of the patient
Summarizing hospital stay
Instructions for continuing care to all relevant caregivers
Preparation of discharge records, prescriptions, and referral forms
Total time spent (in minutes): 35
Anticipated Discharge: Today
Subjective/Interval History
-
Date of Service: August 22, 2023
Patient was seen and examined. She reported an episode of room-spinning sensation briefly this morning, she stated she has had these episodes before and was diagnosed with vertigo and she has taken Meclizine in the past.
Objective Data
-
Labs:
Laboratory Results
08/22/23
06:12
WBC 9.4
Hgb 11.6 L
Hct 37.0
Plt Count 494 H
Sodium 139
Potassium 4.2
Chloride 102
Carbon Dioxide 29
BUN 21 H
Creatinine 0.6
Glucose 116 H
Calcium 9.2
Vital Signs:
Vital Signs
Temp Pulse Resp BP Pulse Ox
98.5 F 101 18 146/76 94
08/22/23 07:52 08/22/23 08:16 07/05/24 07:52 08/22/23 08:16 08/22/23 07:52
I&O
08/21/23 08/22/23 08/23/23
06:59 06:59 06:59
Intake Total 480 / 480 320 / 320
Balance 480 / 480 320 / 320
--- NOTE | 2023-08-22 13:15 | W.DS.TRANS ---
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
-
Discharge Instructions:
Discharge Diagnosis/Procedures #Dyspnea
#RML Pneumonia with suspected atelectasis
#Vertigo Episodes
#COPD
#History of nocturnal hypoxia on 2 L/min
#Right Ear otorrhea
#Recently diagnosed ER+/NE+, HER2 (-) right
breast invasive lobular carcinoma Dx via
ultrasound-guided biopsy on 06/24/2023
#Paroxysmal A-Fib
#History of DVT
#History of CVA 2000
#Essential Hypertension
#Thrombocytosis
#COPD
#LBBB with negative Sgarbossa criteria
Diet Low Fat,Low Cholesterol
Activity As tolerated
Blood Work Recheck CBC and BMP with your primary care
provider within the next 1 week
Instructions: Vertigo (a type of dizziness)
Cefpodoxime
Doxycycline
Meclizine
Stand-Alone Forms:
Changes to Home Medications: Yes
Discharge Medications:
DC Medications w/original date entered in [employer]
amlodipine 10 mg tablet 10 mg PO DAILY Blood Pressure 09/06/22
cholecalciferol (vitamin D3) 50 mcg (2,000 unit) tablet 50 mcg PO DAILY Supplement 09/06/22
tiotropium bromide 18 mcg capsule with inhalation device (Spiriva with HandiHaler) 1 cap inhalation R DAILY Lung/Breathing Issues 09/06/22
apixaban 5 mg tablet (Eliquis) 5 mg PO BID Blood Clot Prevention/Tx 07/20/23
zinc sulfate 50 mg zinc (220 mg) capsule 50 mg PO DAILY Supplement 07/21/23
ipratropium 0.5 mg-albuterol 3 mg (2.5 mg base)/3 mL nebulization soln 3 ml inhalation R Q4HPRN PRN shortness of breath #90 mL 07/25/23
acetaminophen 500 mg tablet (Tylenol Extra Strength) 1,000 mg PO HSPRN PRN mild pain 08/19/23
fluticasone furoate 100 mcg-vilanterol 25 mcg/dose inhalation powder (Breo Ellipta) 1 inh inhalation R DAILY Lung/Breathing Issues 08/19/23
vitamin C 500 mg-multivitamin with minerals chewable tablet (Emergen-C) 1 tab PO DAILY Supplement 08/19/23
cefpodoxime 200 mg tablet 200 mg PO Q12H #6 tabs 08/21/23
doxycycline hyclate 100 mg capsule 100 mg PO Q12 #7 caps 08/21/23
meclizine 12.5 mg tablet 12.5 mg PO Q12H PRN dizziness #6 tabs 08/22/23
Home Medication Changes
Cefpodoxime, Doxycycline and Meclizine are new medications.
Pending Results: Yes
Additional Pending Results:
Final results of blood cultures from hospitalization
Total time spent discharging patient (in min): 35
[2023-08-22 14:01] VITALS: BP 121/69
== END 2023-08-22 14:04 | disposition home or self-care (01) | DRG 193 ==
LOC: 3 WEST ACU 22:00
PROVIDERS: Registered Nurse; ADMITTING PHYSICIAN Hospitalist; ATTENDING PHYSICIAN Hospitalist; EMERGENCY PHYSICIAN Emergency Medicine; FAMILY PHYSICIAN Nurse Practitioner Adult Health; OTHER PHYSICIAN Internal Medicine Critical Care Medicine; OTHER PHYSICIAN Otolaryngology Facial Plastic Surgery
DX: J18.9 Pneumonia, unspecified organism (principal); J96.01 Acute respiratory failure with hypoxia; J98.11 Atelectasis
CPT/HCPCS: 70450; 71046; 80048; 80053; 84443; 84484; 85025; 85027; 87040; 87070; 87449; 87899; 93005; 94640; 96374; 97116; 97162; 97530; 99285

== ENCOUNTER → 2023-09-05 11:43 | Outpatient (REF) | payer OTHER, SELFPAY ==
[2023-09-05 16:10] LABS: % Basophils 0.9 % (0-2); % Eosinophils 2.6 % (0-6); % Immature Granulocytes 0.7 % (0-0.5); % Lymphocytes 14.8 % (20.5-51.1); % Monocytes 5.8 % (1.7-9.3); % Neutrophils 75.2 % (42.2-75.2); Absolute Basophils 0.1 10^3/uL (0-0.2); Absolute Eosinophils 0.3 10^3/uL (0-0.7); Absolute Immature Granulocytes 0.1 10^3/uL (0-0.05); Absolute Lymphocytes 1.7 10^3/uL (1.2-3.4); Absolute Monocytes 0.7 10^3/uL (0.1-0.6); Absolute Neutrophils 8.5 10^3/uL (1.4-6.5); Hemoglobin 13.4 g/dL (12.0-16.0); Mean Corp Hgb Conc. 31.9 g/dL (33.0-37.0); Mean Corpuscular Hgb 27.6 pg (27.0-31.0); Mean Corpuscular Volume 86.6 fL (81.0-99.0); Mean Platelet Volume 9.4 fL (7.4-10.4); Nucleated Red Blood Cells % 0 %; Platelet Count 501 10^3/uL (130-400); Red Blood Cell Count 4.85 10^6/uL (4.20-5.40); Red Cell Dist. Width 14.2 % (11.5-14.5); White Blood Cell Count 11.3 10^3/uL (4.8-10.8)
[2023-09-05 16:32] LABS: Erythrocyte Sed Rate 58 mm/hour (0-20)
[2023-09-05 16:40] LABS: Ferritin 92.1 ng/ml (11.1-264.0)
== END ==
LOC: HWLAB 11:43
PROVIDERS: ATTENDING PHYSICIAN Nurse Practitioner Adult Health
DX: D64.9 Anemia, unspecified (principal); R79.82 Elevated C-reactive protein (CRP)
CPT/HCPCS: 36415; 82728; 85025; 85652; 86140

== ENCOUNTER → 2023-10-02 08:30 | Outpatient (REF) | payer OTHER, SELFPAY | LOC: WDC 08:30 | PROVIDERS: ATTENDING PHYSICIAN Surgery | DX: C50.411 Malignant neoplasm of upper-outer quadrant of right female breast (principal) | CPT/HCPCS: 38792; 76942; A9541 ==

== ENCOUNTER 2023-10-03 14:23 | Inpatient (IN) | payer OTHER, SELFPAY ==
--- NOTE | 2023-09-30 14:31 | PTCARENOTE ---
Abn ECG and CXR, Dr. Samuel with Anesthesia notified, no further actions requested.
[2023-10-03] VITALS (15 sets, daily range): BP systolic 5–125; BP diastolic 50–98; BMI 26.6; BMI 26.0
[2023-10-03] MEDS: TYLENOL 1000 MG PO (10:45)
[2023-10-03] MEDS: LOVENOX 40 MG SC (10:45)
[2023-10-03] MEDS: NORMOSOL-R 1000 IV (10:46)
[2023-10-03] MEDS: VANCOCIN 200 IV (10:56)
--- NOTE | 2023-10-03 13:41 | W.IMMPOSTOP ---
Surgical Immed Post Op Note
-
Primary Surgeon: Jerilyn
Assisting Surgeon: None
Pre-op Diagnosis: Right breast ca
Post-op Diagnosis: Same
Procedure Performed: Right simple mastectomy, sentinel lymph node mapping and biopsy
Anesthesia Type: LMA general
Specimen / Cultures: Right breast, sentinel nodes
Estimated Blood Loss: 10cc
Complications: None
Operative Findings: Neg nodes on frozen section
[place] Node Bx Breast Cancer
[place] Node Bx Breast Cancer
Operation performed with curative intent: Yes
Tracer(s) to ID [place] Nodes in Non-Neoadjuvant setting: Radioactive Tracer
Tracer(s) to ID [place] Nodes in the Neoadjuvant Setting: N/A
All nodes at end of dye-filled Lymphatic Channel removed: N/A
All Significantly Radioactive Nodes were removed: Yes
All Palpably Suspicious Nodes were Removed: Yes
Bx Proven Pos Nodes Marked Prior to Chemo ID'd & Removed: N/A
[2023-10-03] MEDS: D5/0.45%NSS with KCL 20 MEQ 1000 IV (15:07)
[2023-10-03] MEDS: DILAUDID 0.25 MG IV (15:10)
--- NOTE | 2023-10-03 15:37 | W.PN.UPDATE ---
Update Note
Progress Note Update
called to see patient in PACU. She has an obvious hematoma and will require evacuation in the OR. Pt typed and crossmatched for 2 units of PRBCs. Family aware.
--- NOTE | 2023-10-03 16:02 | PHA.VAN.IN ---
Assessment
- Assessment
Renal Function: Appears similar to baseline
Concomitant Antimicrobials: NONE
- Previous Dosing Experience
Previous Regimen: NONE
AUC Dosing Plan
- Dosing Variables
Dosing Weight (kg): 72.6
Dosing CrCl (ml/min): 71
Vd coefficient (L/kg): 0.7
- Empiric Dosing
Initial / Loading Dose: 1750MG TOTAL
Maintenance Regimen: 750MG IV Q12H
Estimated AUC (mcg*h/mL): 481
Estimated Peak (mcg*h/mL): 27.7
Estimated Trough (mcg/ml): 13.8
Estimated Half Life (H): 10.9
Pharmacokinetics Vancomycin I
- -
Patient Age: 78
Patient Sex: Female
Vancomycin Day #: 1
Indication: Prophylaxis (Surg,Hiv,...)
Requesting Provider: GIRMA
Pertinent Antimicrobial Allergies:
Allergies
Macrolide Antibiotics Allergy (Verified 10/03/23 10:38)
Hives
PER PT SHE TOLERATED AZITHROMYCIN
Penicillins Allergy (Verified 10/03/23 10:38)
Hives
doxycycline Allergy (Verified 10/03/23 10:38)
Swelling
nitrofurantoin Allergy (Verified 10/03/23 10:38)
swelling, racing heart
telithromycin Allergy (Verified 10/03/23 10:38)
Hives
KETOLIDES LISTED ALLERGY- UPDATED
Height / Weight:
Height 5 ft 5 in
Actual Weight 72.575 kg
- Vital Signs / Lab Results
Temp Pulse Resp BP Pulse Ox
97.6 F 82 18 108/70 97
10/03/23 14:00 10/03/23 15:45 10/03/23 15:45 10/03/23 15:30 10/03/23 15:45
[2023-10-03 17:30] LABS: % Basophils 0.6 % (0-2); % Eosinophils 0.1 % (0-6); % Immature Granulocytes 0.6 % (0-0.5); % Lymphocytes 4.1 % (20.5-51.1); % Monocytes 1.2 % (1.7-9.3); % Neutrophils 93.4 % (42.2-75.2); Absolute Basophils 0.1 10^3/uL (0-0.2); Absolute Immature Granulocytes 0.1 10^3/uL (0-0.05); Absolute Lymphocytes 0.7 10^3/uL (1.2-3.4); Absolute Monocytes 0.2 10^3/uL (0.1-0.6); Absolute Neutrophils 15.1 10^3/uL (1.4-6.5); Hematocrit 31.1 % (37.0-47.0); Hemoglobin 10.3 g/dL (12.0-16.0); Mean Corp Hgb Conc. 33.1 g/dL (33.0-37.0); Mean Corpuscular Hgb 27.7 pg (27.0-31.0); Mean Corpuscular Volume 83.6 fL (81.0-99.0); Mean Platelet Volume 9.1 fL (7.4-10.4); Nucleated Red Blood Cells % 0 %; Platelet Count 458 10^3/uL (130-400); Red Blood Cell Count 3.72 10^6/uL (4.20-5.40); Red Cell Dist. Width 14.3 % (11.5-14.5); White Blood Cell Count 16.2 10^3/uL (4.8-10.8)
--- NOTE | 2023-10-03 18:03 | W.IMMPOSTOP ---
Surgical Immed Post Op Note
-
Primary Surgeon: Jerilyn
Assisting Surgeon: None
Pre-op Diagnosis: right chest wall hematoma S/P right mastectomy
Post-op Diagnosis: same
Procedure Performed: evacuation of right chest wall hematoma
Anesthesia Type: LMA general
Specimen / Cultures: None
Estimated Blood Loss: 50cc
Complications: None
Operative Findings: one arterial chest wall bleeder
--- NOTE | 2023-10-03 20:00 | PTCARENOTE ---
Very pleasant 78y/o female arrived from PACU at 20:00, post R Mastectomy with Hematoma evacuation wearing a surgical dressing & bra. Pt has [address] PT AOx3, bed in low position and call light in reach.
[2023-10-03] MEDS: ANTIVERT 12.5 MG PO (20:51)
[2023-10-03] MEDS: COLACE 100 MG PO (20:51)
[2023-10-04 00:01] VITALS: BMI 26.6
[2023-10-04] MEDS: VANCOCIN 150 IV ×2 (05:02→17:38)
[2023-10-04 07:45] VITALS: BP 110/65
[2023-10-04] MEDS: SPIRIVA RESPIMAT 2.5 MCG 2 PUFF INH (08:00)
[2023-10-04 08:28] LABS: Hematocrit 29.8 % (37.0-47.0); Hemoglobin 9.9 g/dL (12.0-16.0)
[2023-10-04] MEDS: ANTIVERT PO ×2 (08:42→19:54)
[2023-10-04] MEDS: TYLENOL 1000 MG PO ×2 (08:49→18:38)
[2023-10-04] MEDS: NORVASC 10 MG PO (08:50)
[2023-10-04] MEDS: VITAMIN D3 (cholecalciferol) 50 MCG PO (08:50)
[2023-10-04] MEDS: COLACE 100 MG PO ×2 (08:51→19:54)
--- NOTE | 2023-10-04 09:11 | CM ---
CM met with pt at bedside. Pt sitting up edge of bed eating breakfast.
Pt resides in a one level apartment with elevator access with her spouse. Spouse is set up with [employer] who will be checking on him as well as their son. Spouse is w/c bound but has support while pt is hospitalized.
Prior to admission, pt is ind with ambulation using no AD. 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
PCP is Yeni Jaimes. Pharmacy is [facility].
Uses oxygen HS and owns a nebulizer. Oxygen supplier is [employer].
CM discussed VN with pt. Has no VN or SNF history. Pt is interested in VN for drain care. Reports +2 drains. CM offered choice of agency. Preference is for VN. Will send referral via [employer].
--- NOTE | 2023-10-04 10:17 | W.PN.UPDATE ---
Update Note
Progress Note Update
The patient is POD #1 S/P right mastectomy, sentinel node mapping and biopsy with PECS II block and return to OR for evacuation of hematoma.
She is sore but feeling ok. Ambulating with assistance. Will require ongoing inpatient monitoring because of post-op hemorrhage. Tentative D/C tomorrow
if stable with VNA.
[2023-10-04 10:29] LABS: Blood Urea Nitrogen 20 mg/dl (7-17); Calcium 9.2 mg/dl (8.4-10.2); Carbon Dioxide 27 mmol/L (22-30); Chloride 103 mmol/L (98-107); Estimated Creatinine Clearance 47 ml/min; Glucose 119 mg/dl (70-99); Sodium 135 mmol/L (135-145); eGFR > 60.00
--- NOTE | 2023-10-04 10:40 | PHA.VAN.FU ---
Vancomycin Assessment / Plan
- Assessment
Renal Function: Stable
WBC's are: Stable
In the past 24 hrs, patient has been: Afebrile
- Dosing Plan
Continue: Vanc 750mg IV Q12H
- Monitoring Plan
No level(s) ordered at this time: Order levels post 10/04 1800 dose.
- Follow Up
Pharmacy will continue to follow.
Vancomycin Follow UP
- -
Patient Age: 78
Patient Sex: Female
Vancomycin Day #: 2
Indication: Prophylaxis (Surg,Hiv,...)
Requesting Provider: GIRMA
Pertinent Antimicrobial Allergies:
Allergies
Macrolide Antibiotics Allergy (Verified 10/03/23 10:38)
Hives
PER PT SHE TOLERATED AZITHROMYCIN
Penicillins Allergy (Verified 10/03/23 10:38)
Hives
doxycycline Allergy (Verified 10/03/23 10:38)
Swelling
nitrofurantoin Allergy (Verified 10/03/23 10:38)
swelling, racing heart
telithromycin Allergy (Verified 10/03/23 10:38)
Hives
KETOLIDES LISTED ALLERGY- UPDATED
Height / Weight:
Height 5 ft 5 in
Actual Weight 70.902 kg
- Vital Signs / Lab Results
Temp Pulse Resp BP Pulse Ox
98.2 F 78 16 110/64 94
10/04/23 07:45 10/04/23 08:07 10/04/23 08:07 10/04/23 08:50 10/04/23 08:59
Lab Results - Hematology
10/03/23
17:20
WBC 16.2 H
Lab Results - Chemistry
10/04/23
07:41
BUN 20 H
Creatinine 0.9
Estimated Creat Clear 47
[2023-10-04 11:30] VITALS: BP 119/65
[2023-10-04] MEDS: D5/0.45%NSS with KCL 20 MEQ IV (13:29)
[2023-10-04 15:25] VITALS: BP 120/70
[2023-10-04] MEDS: D5/0.45%NSS with KCL 20 MEQ 1000 IV (17:38)
[2023-10-04 19:21] VITALS: BP 110/70
[2023-10-04 23:17] VITALS: BP 104/56
[2023-10-05] MEDS: VANCOCIN 150 IV (06:27)
[2023-10-05 07:35] VITALS: BP 128/59
[2023-10-05] MEDS: SPIRIVA RESPIMAT 2.5 MCG 2 PUFF INH (08:21)
--- NOTE | 2023-10-05 08:42 | PHA.VAN.FU ---
Vancomycin Assessment / Plan
- Assessment
Renal Function: No New Labs Today
In the past 24 hrs, patient has been: Afebrile
- Dosing Plan
Continue: Vanc 750mg Q12H
- Monitoring Plan
Peak Level: 10/04 at 2030
Trough Level: 10/05 at 0530
- Follow Up
Pharmacy will continue to follow.
Vancomycin Follow UP
- -
Patient Age: 78
Patient Sex: Female
Vancomycin Day #: 3
Indication: Prophylaxis (Surg,Hiv,...)
Requesting Provider: GIRMA
Pertinent Antimicrobial Allergies:
Allergies
Macrolide Antibiotics Allergy (Verified 10/03/23 10:38)
Hives
PER PT SHE TOLERATED AZITHROMYCIN
Penicillins Allergy (Verified 10/03/23 10:38)
Hives
doxycycline Allergy (Verified 10/03/23 10:38)
Swelling
nitrofurantoin Allergy (Verified 10/03/23 10:38)
swelling, racing heart
telithromycin Allergy (Verified 10/03/23 10:38)
Hives
KETOLIDES LISTED ALLERGY- UPDATED
Height / Weight:
Height 5 ft 5 in
Actual Weight 70.902 kg
- Vital Signs / Lab Results
Temp Pulse Resp BP Pulse Ox
98.2 F 81 16 128/59 95
10/05/23 07:35 10/05/23 08:27 10/05/23 08:27 10/05/23 07:35 10/05/23 08:27
Lab Results - Hematology
10/03/23
17:20
WBC 16.2 H
Lab Results - Chemistry
10/04/23
07:41
BUN 20 H
Creatinine 0.9
Estimated Creat Clear 47
[2023-10-05] MEDS: NORVASC PO (08:43)
[2023-10-05] MEDS: ANTIVERT PO (08:43)
[2023-10-05] MEDS: TYLENOL 1000 MG PO (08:44)
[2023-10-05] MEDS: VITAMIN D3 (cholecalciferol) 50 MCG PO (08:44)
[2023-10-05] MEDS: COLACE 100 MG PO (08:44)
--- NOTE | 2023-10-05 11:31 | W.PN.UPDATE ---
Update Note
Progress Note Update
The patient is POD #2 S/P right mastectomy and sentinel node mapping and biopsy with return to OR for evacuation of a hematoma.
She is up and ambulating without difficulty. Did not sleep last night. Tolerating PO intake. Will D/C vancomycin and discharge to home
Will see in office in approximately 7-10 days. Final pathology is pending.
[2023-10-05 12:30] VITALS: BP 122/60
--- NOTE | 2023-10-05 15:37 | CM ---
Addendum entered by Lidia Figueroa RN 10/05/23 15:47:
emmanuelle ALBRIGHTn notified of d/c via TT.
Original Note:
Patient who is s/p Right simple mastectomy, Evacuation of hematoma right chest. Dressings chest wound. Surgical drain.
Spoke with patient who was preparing for d/c. The patient says she feels ready for discharge home today. She is aware that VN is setup for her. Her family are providing transport home today.
IMM completed 10/04 scanned into chart.
Plan home today with VN.
--- NOTE | 2023-10-06 18:00 | W.DCSUMMARY ---
Discharge Summary
Discharge Data
Date of Admission: 10/03/23
Date of Discharge: 10/06/23
-
Pending Results: Yes
Additional Pending Results:
Pathology report.
Hospital Course
Admitted after mastectomy and return to OR for evacuation of hematoma. Stable hemoglobin with no signs of further bleeding
Discharge Plan
-
Patient Disposition: Home (Routine Discharge)
Discharge Diagnosis/Procedures: right mastectomy, sentinel node biopsy and evacuation of hematoma
Condition: Good
Diet: Supplements
Additional Diets: intake 70 grams of protein per day
Activity: No strenuous activity
Driving Restrictions: Not until seen by your Dr
Bathing Restrictions: OK to Shower
Other Services: VN
Wound Care: change gauze dressings daily-wear a supportive soft bra. Strip drains and record drainage
Referrals:
UNKNOWN,NO INTERVIEW [Family Provider] -
Prescriptions:
Continued
amlodipine 10 mg Tablet
10 mg PO DAILY
cholecalciferol (vitamin D3) 50 mcg (2,000 unit) Tablet
50 mcg PO DAILY
zinc sulfate 50 mg zinc (220 mg) Capsule
50 mg PO DAILY
ipratropium-albuterol 0.5 mg-3 mg(2.5 mg base)/3 mL Solution For Nebulization
3 ml inhalation R Q4HPRN PRN (Reason: shortness of breath) Qty: 90 1RF
acetaminophen [Tylenol Extra Strength] 500 mg Tablet
1,000 mg PO HSPRN PRN (Reason: mild pain)
Emergen-C 500 mg Tablet,Chewable
1 tab PO DAILY
meclizine 12.5 mg tablet
12.5 mg PO Q12H PRN (Reason: dizziness) Qty: 6 0RF
Stiolto Respimat 2.5-2.5 mcg/actuation Mist
2 puff INHALATION DAILY
Held
Eliquis 5 mg Tablet
5 mg PO BID
Hold Instructions: Resume on 10/10/23.
Discharge Orders:
Discharge Patient (As Directed); Ordered 10/05/23
Ordered By: Kim Jean-Baptiste
Discharge Date and Time
Discharge Date/Time: 10/05/23 12:52
Print Language: BANGLADESHI
== END 2023-10-05 12:52 | disposition home health service (06) | DRG 580 ==
LOC: 2 SOUTH 14:23
PROVIDERS: ADMITTING PHYSICIAN Surgery
PROC: 0HCT0ZZ Extirpation of Matter from Right Breast, Open Approach (ICD-10-PCS; 2023-10-03)
PROC: 07B50ZX Excision of Right Axillary Lymphatic, Open Approach, Diagnostic (ICD-10-PCS; 2023-10-03)
PROC: 0HTT0ZZ Resection of Right Breast, Open Approach (ICD-10-PCS; 2023-10-03)
DX: C50.911 Malignant neoplasm of unspecified site of right female breast (principal); L76.32 Postprocedural hematoma of skin and subcutaneous tissue following other procedure; Y83.8 Other surgical procedures as the cause of abnormal reaction of the patient, or of later complication, without mention of misadventure at the time of the procedure; J44.89 Other specified chronic obstructive pulmonary disease; I10 Essential (primary) hypertension; E78.00 Pure hypercholesterolemia, unspecified; I44.7 Left bundle-branch block, unspecified; I48.91 Unspecified atrial fibrillation; Z86.718 Personal history of other venous thrombosis and embolism; Z86.73 Personal history of transient ischemic attack (TIA), and cerebral infarction without residual deficits
CPT/HCPCS: 88307; 88332; 80048; 85014; 85018; 85025; 86850; 86900; 86901; 88331; 88341; 88342; 94640; 97161; A4648; L8000

== ENCOUNTER → 2023-10-13 10:24 | Outpatient (REF) | payer OTHER, SELFPAY ==
[2023-10-13 10:50] VITALS: BP 146/88; BP_SYST 106
[2023-10-13 12:10] VITALS: BP 159/74; BP_SYST 79
[2023-10-13 12:45] VITALS: BP 159/74
== END ==
LOC: RADI 10:24
PROVIDERS: ATTENDING PHYSICIAN Surgery; FAMILY PHYSICIAN Nurse Practitioner Adult Health
DX: M96.840 Postprocedural hematoma of a musculoskeletal structure following a musculoskeletal system procedure (principal); Y83.8 Other surgical procedures as the cause of abnormal reaction of the patient, or of later complication, without mention of misadventure at the time of the procedure; Z90.11 Acquired absence of right breast and nipple
CPT/HCPCS: 10030; C1729; C1769

== ENCOUNTER 2023-11-06 10:47 | Emergency (ER) | payer OTHER, SELFPAY ==
[2023-11-06 10:52] VITALS: BP 137/76
[2023-11-06 10:55] VITALS: BP 137/76; BMI 24.3
[2023-11-06 11:00] VITALS: BP 151/93
--- NOTE | 2023-11-06 11:09 | ED.GENMED ---
History of Present Illness
General
Chief Complaint: Breathing Problem
Source: patient
Time Seen by Provider: 11/06/23 10:52
History of Present Illness
History of Present Illness:
78yoF with a history of COPD on 2L NC QHS, atrial fibrillation on Eliquis, breast cancer s/p right mastectomy last month, hypertension, hyperlipidemia, and remote history of DVT in 2020 presenting via EMS for evaluation of abdominal pain. Patient
reports pain in her epigastric region as well as her left flank. Pain is described as grabbing and is severe at times. Pain initially started about a week ago but has been worsening over the past 2 days. She has not been sleeping well due to her
symptoms. Patient has been taking tramadol with temporary relief. She has not been sleeping well due to her symptoms. She also reports shortness of breath which she believes is secondary to the pain she is having. Her oxygen saturations were
88-89% earlier today. She received a Duoneb prehospital with some improvement. She denies any fevers or dysuria. Of note, patient underwent right mastectomy on 10/03/23. She had a hematoma postoperatively requiring drain placement which was removed
last week. She is scheduled to start radiation in the near future.
Past History
Past History
ED Past Medical History: Arrthythmia (afib), COPD, HTN and Other (New diagnosis right lobular breast CA)
Social History
Tobacco: Former smoker
Alcohol: None
Drug: None
Phy Exam
General Physical Exam
General Presentation: well appearing and no apparent distress
General age: appears stated age
General Skin: warm and dry
General Habitus: normal
General Mental: alert
ENT Exam
ENT Exam: normocephalic
Cardiovascular Exam
Cardiovascular Exam: regular rate/rhythm
Pulmonary Exam
Pulmonary Exam: no respiratory distress, no rales, no crackles and other (Mild expiratory wheezes. +Reproducible tenderness along lower L posterolateral ribcage and lower R anterior ribcage. Prior mastectomy incision is healing without any signs of
infection. )
Gastrointestinal Exam
Gastrointestinal Exam: non tender, soft and non distended
Chika Coma Scale
Eye Opening: Spontaneous
Verbal Response: Oriented
Motor Response: Obeys Commands
GCS Total Score: 15
Skin Exam
Skin Exam: normal color and warm/dry
Psychiatric Exam
Psychiatric Exam: normal mood/affect
Scores
Heart Failure Risk
Heart Failure Risk Score: Not Applicable
Course
Orders/Labs/Results
Orders:
Orders
11/06/23 10:53
Electrocardiogram (*1) Urgent
Reason for Study: Abdominal Pain
11/06/23 10:54
EKG- Treatment ONCE
11/06/23 11:08
Urinalysis Reflex To Culture Urgent
HYDROmorphone [Dilaudid] 0.25 mg IV NOW STA
CR Chest - 2 Views Urgent
Comment:
Reason For Exam: SOB
11/06/23 11:12
Albuterol Nebs [Ventolin Nebules] 5 mg INH R NOW STA
Ipratropium Nebs [Atrovent Nebules] 0.5 mg INH R NOW STA
11/06/23 11:24
Complete Blood Count/With Diff Urgent
Comprehensive Metabolic Panel Urgent
D-Dimer Urgent
Lipase Urgent
Troponin I Urgent
11/06/23 12:14
PE/ABD/Pel w Contrast CT [CT Pe/abd/pel W] Urgent
Comment:
Reason For Exam: SOB, epigastric/L flank pain, elevated D-dimer
11/06/23 13:09
HYDROmorphone [Dilaudid] 0.25 mg IV NOW STA
Ketorolac [Toradol] 15 mg IV NOW STA
Abnormal Lab Results
11/06/23
11:24
MCH 26.5 L pg
(27.0-31.0)
MCHC 31.6 L g/dL
(33.0-37.0)
Lymphocytes % 20.1 L %
(20.5-51.1)
Eosinophils % 6.1 H %
(0-6)
D-Dimer 0.88 H ug/mlFEU
(0.00-0.50)
Glucose 127 H mg/dl
(70-99)
11/06/23 11:24
11/06/23 11:24
Vital Signs
Initial and Last Documented VS:
Initial Vital Signs
Pulse Resp BP Pulse Ox
106 21 137/76 91
11/06/23 10:52 11/06/23 10:52 11/06/23 10:52 11/06/23 10:52
Last Documented Vital Signs
Temp Pulse Resp BP Pulse Ox
98.2 F 99 28 122/75 94
11/06/23 10:55 11/06/23 12:30 11/06/23 12:30 11/06/23 12:29 11/06/23 12:30
MDM/Problems Addressed
Differential Diagnosis Includes:
78yoF here with L flank and epigastric pain x 1 week. Acutely worsening over the past few days. Recent mastectomy last month with drain removed last week. She also c/o shortness of breath which she attributes to the pain itself. Received a DuoNeb
prehospital although patient states her symptoms do not feel like a COPD flare. She is afebrile and hemodynamically stable. There is reproducible tenderness along the ribcage bilaterally. Differential diagnosis includes but is not limited to:
Postoperative pain, costochondritis, pathologic fracture, PE, pneumonia, ACS
Initial ED plan: Check abdominal labs, D-dimer, troponin/EKG, and chest x-ray. IV Dilaudid for pain.
*EKG
Interpreted by ED Provider?: Yes
EKG Intrepretation Date: 11/06/23
Heart Rate: 95
Rate: normal
Rhythm: sinus
[place]: normal axis
Interval: normal interval
QRS Pattern: left bundle branch block (Seen on prior EKG)
Ischemia: no ischemia
*Critical Care Note
Total Time (30-74mins, 75-104mins- exclusive of procedures): Not Applicable
Update Note
Update Note:
Labs overall unremarkable including normal lipase and LFTs. EKG shows NSR with a LBBB which was also present on prior EKG. Troponin WNL. D-dimer elevated and CTA CAP subsequently added. Imaging is negative for acute findings. There is a new lung
nodule and enlarged right axillary lymph node noted. Patient and family informed of this finding and were provided with a copy of the CT scan report. Pain controlled on reassessment. Suspect pain is musculoskeletal given reproducibility on exam.
Pain also could be 2/2 recent mastectomy. No indication for hospitalization at this time. Prescriptions given for a Medrol dose pack and oxycodone for breakthrough pain. She was advised to f/u closely with her PCP and oncologist. ED return
precautions discussed. Patient and family expressed understanding and are agreeable to plan. Patient discharged in stable condition.
ED Attending Note
-
Portions of this chart may have been created with voice recognition software.� Occasional wrong word or��sound alike� substitutions may have occurred due to the inherent limitations of voice recognition software.
Discharge Plan
Departure
Patient Disposition: Home (Routine Discharge)
Date of Disposition: 11/06/23
Time of Disposition: 15:10
Patient with high blood pressure during this ER visit?: No
Discharge Problem:
Chest wall pain
Instructions: Costochondritis
Prescriptions:
New
oxycodone 5 mg tablet
5 mg PO Q6H PRN (Reason: Pain) Qty: 12 0RF
methylprednisolone [Medrol (Tate)] 4 mg tablets,dose pack
See Rx Instructions .ROUTE .COMPLEX Qty: 21 0RF
Rx Instructions:
orally per package directions
No Action
amlodipine 10 mg Tablet
10 mg PO DAILY
cholecalciferol (vitamin D3) 50 mcg (2,000 unit) Tablet
50 mcg PO DAILY
Eliquis 5 mg Tablet
5 mg PO BID
ipratropium-albuterol 0.5 mg-3 mg(2.5 mg base)/3 mL Solution For Nebulization
3 ml inhalation R Q4HPRN PRN (Reason: shortness of breath) Qty: 90 1RF
acetaminophen [Tylenol Extra Strength] 500 mg Tablet
1,000 mg PO HSPRN PRN (Reason: mild pain)
Emergen-C 500 mg Tablet,Chewable
1 tab PO DAILY
meclizine 12.5 mg tablet
12.5 mg PO Q12H PRN (Reason: dizziness) Qty: 6 0RF
Stiolto Respimat 2.5-2.5 mcg/actuation Mist
2 puff INHALATION DAILY
Referrals:
Yeni Jaimes CRNP [Family Provider] -
Activity Restrictions/Additional Instructions:
Apply heat to affected area. Take Tylenol 650mg every 6 hours as needed for pain. Take Medrol dose pack as prescribed. Take oxycodone only as needed for severe breakthrough pain. Do not combine this with Tramadol.
Please follow-up with your family doctor and your oncologist regarding the lung nodule and enlarged lymph node seen on your CT scan.
Return to the ER with any new or worsening symptoms.
Interventions
Interventions:
*Risk Screen - Suicide Last Done: 11/06/23 10:55
*General Assessment Last Done: 11/06/23 10:55
*Neglect/Abuse Screening Last Done: 11/06/23 10:55
ED- Fall Risk Assessment Last Done: 11/06/23 11:10
*ED COVID-19 Vaccine History Last Done: 11/06/23 10:55
ED- Cardiac Assessment Last Done: 11/06/23 11:10
ED- Pulmonary Assessment Last Done: 11/06/23 11:10
Discharge Date and Time
Print Language: KAZAKH
[2023-11-06] MEDS: VENTOLIN NEBULES 5 MG INH (11:27)
[2023-11-06] MEDS: ATROVENT NEBULES 0.5 MG INH (11:27)
[2023-11-06] MEDS: DILAUDID 0.25 MG IV ×2 (11:28→14:06)
[2023-11-06 11:36] LABS: % Basophils 1.2 % (0-2); % Eosinophils 6.1 % (0-6); % Immature Granulocytes 0.1 % (0-0.5); % Lymphocytes 20.1 % (20.5-51.1); % Monocytes 6.9 % (1.7-9.3); % Neutrophils 65.6 % (42.2-75.2); Absolute Basophils 0.1 10^3/uL (0-0.2); Absolute Eosinophils 0.4 10^3/uL (0-0.7); Absolute Lymphocytes 1.4 10^3/uL (1.2-3.4); Absolute Monocytes 0.5 10^3/uL (0.1-0.6); Absolute Neutrophils 4.5 10^3/uL (1.4-6.5); Hematocrit 39.5 % (37.0-47.0); Hemoglobin 12.5 g/dL (12.0-16.0); Mean Corp Hgb Conc. 31.6 g/dL (33.0-37.0); Mean Corpuscular Hgb 26.5 pg (27.0-31.0); Mean Corpuscular Volume 83.7 fL (81.0-99.0); Mean Platelet Volume 9.2 fL (7.4-10.4); Nucleated Red Blood Cells % 0 %; Platelet Count 361 10^3/uL (130-400); Red Blood Cell Count 4.72 10^6/uL (4.20-5.40); Red Cell Dist. Width 14.5 % (11.5-14.5); White Blood Cell Count 6.9 10^3/uL (4.8-10.8)
[2023-11-06 11:43] LABS: D-Dimer 0.88 ug/mlFEU (0.00-0.50)
[2023-11-06 11:54] LABS: ALT (SGPT) 13 U/L (0-35); AST (SGOT) 17 U/L (14-36); Albumin 4.2 g/dl (3.5-5.0); Alkaline Phosphatase 90 U/L (38-126); Blood Urea Nitrogen 17 mg/dl (7-17); Calcium 9.7 mg/dl (8.4-10.2); Carbon Dioxide 27 mmol/L (22-30); Chloride 102 mmol/L (98-107); Estimated Creatinine Clearance 65 ml/min; Glucose 127 mg/dl (70-99); Lipase 35 U/L (23-300); Sodium 141 mmol/L (135-145); Total Bilirubin 0.3 mg/dl (0.2-1.3); Total Protein 6.5 g/dl (6.3-8.2); eGFR > 60.00
[2023-11-06 11:57] LABS: Troponin I < 0.012 ng/ml
[2023-11-06 12:29] VITALS: BP 122/75
[2023-11-06] MEDS: TORADOL 15 MG IV (14:06)
== END 2023-11-06 18:35 | disposition home or self-care (01) ==
LOC: EMR 10:47
PROVIDERS: Physician Assistant; EMERGENCY PHYSICIAN Emergency Medicine; FAMILY PHYSICIAN Nurse Practitioner Adult Health
DX: R07.89 Other chest pain (principal); I48.91 Unspecified atrial fibrillation; Z79.01 Long term (current) use of anticoagulants; I10 Essential (primary) hypertension; E78.5 Hyperlipidemia, unspecified; Z87.891 Personal history of nicotine dependence; Z86.718 Personal history of other venous thrombosis and embolism
CPT/HCPCS: 99285; 96374; 96375; 96376; 94640; 71046; 71275; 74177; 80053; 83690; 84484; 85025; 85379; 93005; Q9967

== ENCOUNTER → 2023-11-11 14:45 | Outpatient (REF) | payer OTHER, SELFPAY | LOC: WDC 14:45 | PROVIDERS: ATTENDING PHYSICIAN Nurse Practitioner Adult Health | DX: R92.8 Other abnormal and inconclusive findings on diagnostic imaging of breast (principal); C50.411 Malignant neoplasm of upper-outer quadrant of right female breast | CPT/HCPCS: 76642 ==

== ENCOUNTER 2023-11-24 11:49 | Emergency (ER) | payer OTHER, SELFPAY ==
[2023-11-24 12:04] VITALS: BP 128/81
[2023-11-24 12:27] LABS: % Basophils 1.3 % (0-2); % Eosinophils 5.2 % (0-6); % Immature Granulocytes 0.1 % (0-0.5); % Lymphocytes 15.9 % (20.5-51.1); % Monocytes 8.5 % (1.7-9.3); Absolute Basophils 0.1 10^3/uL (0-0.2); Absolute Eosinophils 0.4 10^3/uL (0-0.7); Absolute Lymphocytes 1.2 10^3/uL (1.2-3.4); Absolute Monocytes 0.6 10^3/uL (0.1-0.6); Absolute Neutrophils 5.2 10^3/uL (1.4-6.5); Hematocrit 40.7 % (37.0-47.0); Mean Corp Hgb Conc. 31.9 g/dL (33.0-37.0); Mean Corpuscular Hgb 26.1 pg (27.0-31.0); Mean Corpuscular Volume 81.7 fL (81.0-99.0); Mean Platelet Volume 9.1 fL (7.4-10.4); Nucleated Red Blood Cells % 0 %; Platelet Count 333 10^3/uL (130-400); Red Blood Cell Count 4.98 10^6/uL (4.20-5.40); Red Cell Dist. Width 14.6 % (11.5-14.5); White Blood Cell Count 7.5 10^3/uL (4.8-10.8)
[2023-11-24 12:40] LABS: ALT (SGPT) 11 U/L (0-35); AST (SGOT) 14 U/L (14-36); Alkaline Phosphatase 79 U/L (38-126); Blood Urea Nitrogen 19 mg/dl (7-17); Calcium 9.5 mg/dl (8.4-10.2); Carbon Dioxide 29 mmol/L (22-30); Chloride 104 mmol/L (98-107); Glucose 136 mg/dl (70-99); Potassium 4.1 mmol/L (3.5-5.1); Sodium 143 mmol/L (135-145); Total Bilirubin 0.2 mg/dl (0.2-1.3); Total Protein 6.6 g/dl (6.3-8.2); eGFR > 60.00
[2023-11-24] MEDS: DELTASONE 60 MG PO (13:19)
[2023-11-24] MEDS: NEURONTIN 300 MG PO (13:19)
[2023-11-24] MEDS: TORADOL 30 MG IM (13:20)
--- NOTE | 2023-11-24 13:38 | ED.GENMED ---
History of Present Illness
General
Chief Complaint: Abdominal Pain
Time Seen by Provider: 11/24/23 12:37
History of Present Illness
History of Present Illness:
78-year-old female with past medical history of COPD and breast cancer status post recent mastectomy presenting to the emergency department for continued pain in her lower rib region. Patient reports that this has been ongoing for several weeks
after her mastectomy. The pain has been intermittent, sharp in quality. She has had difficulty sleeping secondary to the pain. She has tried multiple pain medications including tramadol, oxycodone, with minimal relief. Patient was seen and
evaluated for this complaint on 11/05, had extensive workup including CT of her chest and abdomen, negative for PE or acute intra-abdominal pathology. She presents seeking alternative sources for her pain, with suspected diagnosis of
costochondritis. She denies chest pain or difficulty breathing. She denies fever, vomiting. She denies additional acute medical complaints.
Past History
Past History
ED Past Medical History: Arrthythmia (afib), COPD, HTN and Other (New diagnosis right lobular breast CA)
Social History
Tobacco: Former smoker
Alcohol: None
Drug: None
Phy Exam
Physical Exam
Physical Exam:
General: Well-appearing, no clinical signs of dehydration, nontoxic and in no acute distress
HEENT: protecting airway
Neck: appears supple
CV: Normal heart rate, regular rhythm
Resp: No accessory muscle use, no increased work of breathing, lungs clear to auscultation bilaterally
Abd: Soft and non-distended, no tenderness to palpation
Extremities: No deformities, no swelling
Neuro: alert, no focal neurologic deficit
: deferred
Rectal: deferred
Psych: Normal affect
Skin: Intact
Course
Orders/Labs/Results
Orders:
Orders
11/24/23 11:50
Electrocardiogram (*1) Urgent
Reason for Study: Abdominal Pain
EKG- Treatment ONCE
11/24/23 12:15
Complete Blood Count/With Diff Urgent
Comprehensive Metabolic Panel Urgent
11/24/23 13:10
Gabapentin [Neurontin] 300 mg PO NOW STA
Ketorolac [Toradol] 30 mg IM NOW STA
Prednisone [Deltasone] 60 mg PO NOW STA
Abnormal Lab Results
11/24/23
12:15
MCH 26.1 L pg
(27.0-31.0)
MCHC 31.9 L g/dL
(33.0-37.0)
RDW 14.6 H %
(11.5-14.5)
Lymphocytes % 15.9 L %
(20.5-51.1)
BUN 19 H mg/dl
(7-17)
Glucose 136 H mg/dl
(70-99)
11/24/23 12:15
11/24/23 12:15
Vital Signs
Initial and Last Documented VS:
Initial Vital Signs
Temp Pulse Resp BP Pulse Ox
98.0 F 98 16 128/81 98
11/24/23 12:04 11/24/23 12:04 11/24/23 12:04 11/24/23 12:04 11/24/23 12:04
Last Documented Vital Signs
Temp Pulse Resp BP Pulse Ox
98.0 F 98 16 128/81 98
11/24/23 12:04 11/24/23 12:04 11/24/23 12:04 11/24/23 12:04 11/24/23 12:04
MDM/Problems Addressed
MDM/Problems Addressed:
78-year-old female with history of COPD and breast cancer status post recent mastectomy presenting to the emergency department with continued pain to right lower rib and upper abdominal region after mastectomy. Vital signs are normal.
On exam patient is well-appearing, no acute distress or discomfort. Patient's pain is not reproducible. On EMR, reviewed recent visit from 11/05, extensive workup and imaging, unclear etiology of patient's symptoms. Patient was told that her
symptoms are from costochondritis, which is a consideration. Given that pain is not reproducible, described as intermittent sharp pain, could be neuropathic from recent mastectomy. Will try patient on gabapentin. Also notes that she had
improvement when she had a Medrol Dosepak. Will start patient on a steroid taper. Will also try Toradol given anti-inflammatory properties. EKG obtained, nonischemic, patient without chest pain. Without present concern for ACS. At this time
feel patient is stable for discharge with outpatient follow-up with pain management. Return precautions discussed and patient verbalized understanding
*EKG
Interpreted by ED Provider?: Yes
EKG Intrepretation Date: 11/24/23
EKG Intrepretation Time: 13:41
Interpretation: normal
Comparison EKG: no changes (11/06/23)
Heart Rate: 102
Rate: tachycardiac
Rhythm: sinus
[place]: normal axis
Interval: normal interval
QRS Pattern: normal QRS
Ischemia: no ischemia
*Critical Care Note
Total Time (30-74mins, 75-104mins- exclusive of procedures): Not Applicable
ED Attending Note
-
Portions of this chart may have been created with voice recognition software.� Occasional wrong word or��sound alike� substitutions may have occurred due to the inherent limitations of voice recognition software.
Discharge Plan
Departure
Prescriptions:
No Action
amlodipine 10 mg Tablet
10 mg PO DAILY
cholecalciferol (vitamin D3) 50 mcg (2,000 unit) Tablet
50 mcg PO DAILY
Eliquis 5 mg Tablet
5 mg PO BID
ipratropium-albuterol 0.5 mg-3 mg(2.5 mg base)/3 mL Solution For Nebulization
3 ml inhalation R Q4HPRN PRN (Reason: shortness of breath) Qty: 90 1RF
acetaminophen [Tylenol Extra Strength] 500 mg Tablet
1,000 mg PO HSPRN PRN (Reason: mild pain)
Emergen-C 500 mg Tablet,Chewable
1 tab PO DAILY
meclizine 12.5 mg tablet
12.5 mg PO Q12H PRN (Reason: dizziness) Qty: 6 0RF
Stiolto Respimat 2.5-2.5 mcg/actuation Mist
2 puff INHALATION DAILY
oxycodone 5 mg tablet
5 mg PO Q6H PRN (Reason: Pain) Qty: 12 0RF
methylprednisolone [Medrol (Tate)] 4 mg tablets,dose pack
See Rx Instructions .ROUTE .COMPLEX Qty: 21 0RF
Rx Instructions:
orally per package directions
Referrals:
Yeni Jaimes CRNP [Family Provider] -
Interventions
Interventions:
*Risk Screen - Suicide Last Done: 11/24/23 12:04
*Neglect/Abuse Screening Last Done: 11/24/23 12:04
Discharge Date and Time
Print Language: ISRAELI
== END 2023-11-24 14:18 | disposition home or self-care (01) ==
LOC: EMR 11:49
PROVIDERS: Emergency Medicine; EMERGENCY PHYSICIAN Student in an Organized Health Care Education/Training Program; FAMILY PHYSICIAN Nurse Practitioner Adult Health
DX: R07.81 Pleurodynia (principal); J44.9 Chronic obstructive pulmonary disease, unspecified; I48.91 Unspecified atrial fibrillation; I10 Essential (primary) hypertension; Z85.3 Personal history of malignant neoplasm of breast; Z87.891 Personal history of nicotine dependence
CPT/HCPCS: 99283; 96372; 80053; 85025; 93005

== ENCOUNTER → 2024-01-23 11:36 | Outpatient (REF) | payer OTHER, SELFPAY | LOC: HWRAD 11:36 | PROVIDERS: ATTENDING PHYSICIAN Nurse Practitioner Family; FAMILY PHYSICIAN Nurse Practitioner Adult Health; REFERRING PHYSICIAN Radiology Radiation Oncology | DX: R91.8 Other nonspecific abnormal finding of lung field (principal) | CPT/HCPCS: 71250 ==

== ENCOUNTER 2024-02-01 14:51 | Inpatient (IN) | payer OTHER, SELFPAY ==
[2024-02-01] VITALS (8 sets, daily range): BP systolic 110–188; BP diastolic 60–97; BMI 23.1
--- NOTE | 2024-02-01 10:25 | ED.GENMED ---
History of Present Illness
General
Chief Complaint: Breathing Problem
Time Seen by Provider: 02/01/24 10:10
History of Present Illness
History of Present Illness:
Patient is a 78-year-old woman with history of COPD, A-fib on Eliquis presenting to the emergency department difficulty breathing. Patient states for about 6 days she has had cough congestion runny nose. She went to her doctor who prescribed her a
Z-Tate as well as steroids. She states that her symptoms did not improve. This morning she had a coughing attack and then had a hard time catching her breath. She does have nighttime oxygen and tried putting that on but that did not help. She
does state that she takes her albuterol nebulizers 3 times a day and they have also minimally helped. Upon medics arrival patient was 90% on room air. Gave her a DuoNeb. Patient does feel slightly better. She is compliant with her blood thinner.
No chest pain. No nausea vomiting. No abdominal pain. Patient does state that her is sick with similar symptoms.
Past History
Past History
ED Past Medical History: Arrthythmia (afib), COPD, HTN and Other (New diagnosis right lobular breast CA)
Social History
Tobacco: Former smoker
Alcohol: None
Drug: None
Phy Exam
Physical Exam
Physical Exam:
GENERAL: in no acute distress
HEENT: normocephalic, extraocular movements intact, moist oral mucosa
NECK: normal inspection
RESPIRATORY: Mild respiratory distress, speaking in short sentences, crackles right lower lobe, wheezing in all lung vazquez
CARDIOVASCULAR: regular rate and rhythm
ABDOMEN/: soft, non-distended, non-tender to palpation, no rebound or guarding
EXTREMITIES: non-tender, no edema/swelling
NEUROLOGIC: awake and alert, moves all extremities
SKIN: warm
Scores
Heart Failure Risk
Heart Failure Risk Score: Not Applicable
Sepsis
Sepsis Screening
Sepsis Assessment: Sepsis Ruled Out
Sepsis Screen
Sepsis Screen: Sepsis Ruled Out
Date: 02/01/24
Time: 13:28
Course
Orders/Labs/Results
Orders:
Orders
02/01/24 10:11
EKG [Electrocardiogram (*1)] Urgent
Reason for Study: Shortness of Breath
EKG- Treatment ONCE
02/01/24 10:13
CR Chest - 2 Views Urgent
Comment:
Reason For Exam: SOB
02/01/24 10:23
Albuterol Sulfate [Ventolin Nebules] 10 mg INH R NOW STA
Ipratropium Nebs [Atrovent Nebules] 1 mg INH R NOW STA
MethylPREDNISolone PF [Solu-Medrol Pf] 125 mg IV NOW STA
02/01/24 10:25
COVID-19 Antigen Urgent
Source: Nasal Swab
Complete Blood Count/With Diff Urgent
Comprehensive Metabolic Panel Urgent
Influenza A+B Rapid Molecular Urgent
ELISABETH Source: Nasal Swab
Specimen Description:
Abnormal Lab Results
02/01/24
10:25
RBC 5.49 H 10^6/uL
(4.20-5.40)
MCH 26.2 L pg
(27.0-31.0)
MCHC 31.2 L g/dL
(33.0-37.0)
RDW 18.9 H %
(11.5-14.5)
Monocytes % 10.9 H %
(1.7-9.3)
BUN 22 H mg/dl
(7-17)
Glucose 133 H mg/dl
(70-99)
02/01/24 10:25
02/01/24 10:25
Vital Signs
Initial and Last Documented VS:
Initial Vital Signs
Temp Pulse Resp Pulse Ox
98.3 F 97 22 96
02/01/24 10:05 02/01/24 10:05 02/01/24 10:05 02/01/24 10:05
Last Documented Vital Signs
Temp Pulse Resp BP Pulse Ox
98.3 F 94 22 135/60 98
02/01/24 10:05 02/01/24 13:00 02/01/24 10:05 02/01/24 13:00 02/01/24 13:00
MDM/Problems Addressed
Differential Diagnosis Includes:
Patient is a 78-year-old woman with history of COPD, A-fib on Eliquis presenting to the emergency department with cough and URI symptoms for the past 6 days. On arrival here patient was 96% on room air though she did have crackles in the right
lower base as well as some wheezing. Differential consist of COPD exacerbation versus pneumonia. Considered PE though less likely as she has been compliant with her blood thinner. Less likely to be atypical ACS given the other viral symptoms.
Will check blood work EKG chest x-ray. Will give continuous nebulizer treatment. Will check respiratory swabs.
*Critical Care Note
Total Time (30-74mins, 75-104mins- exclusive of procedures): Not Applicable
Update Note
Update Note:
On reevaluation patient does seem slightly more comfortable with the nebulizer. Blood work unremarkable. Chest x-ray per my interpretation with no obvious opacity.
On reevaluation patient's nebulizer treatment disconnected and patient is hypoxic with increased work of breathing. After I placed her back on oxygen with the treatment patient did feel significantly better and oxygen level improved. Given the
hypoxia work of breathing will admit to the hospitalist. Discussed with hospitalist who excepted patient for admission
ED Attending Note
-
Portions of this chart may have been created with voice recognition software.� Occasional wrong word or��sound alike� substitutions may have occurred due to the inherent limitations of voice recognition software.
Discharge Plan
Departure
Patient Disposition: Admit
Date of Disposition: 02/01/24
Time of Disposition: 13:27
Presentation/result/management discussed w/ accepting MD/DO: Hospitalist
Discharge Problem:
COPD (chronic obstructive pulmonary disease)
Prescriptions:
No Action
amlodipine 10 mg Tablet
10 mg PO DAILY
cholecalciferol (vitamin D3) 50 mcg (2,000 unit) Tablet
50 mcg PO DAILY
Eliquis 5 mg Tablet
5 mg PO BID
ipratropium-albuterol 0.5 mg-3 mg(2.5 mg base)/3 mL Solution For Nebulization
3 ml inhalation R Q4HPRN PRN (Reason: shortness of breath) Qty: 90 1RF
acetaminophen [Tylenol Extra Strength] 500 mg Tablet
1,000 mg PO HSPRN PRN (Reason: mild pain)
Emergen-C 500 mg Tablet,Chewable
1 tab PO DAILY
meclizine 12.5 mg tablet
12.5 mg PO Q12H PRN (Reason: dizziness) Qty: 6 0RF
Stiolto Respimat 2.5-2.5 mcg/actuation Mist
2 puff INHALATION DAILY
oxycodone 5 mg tablet
5 mg PO Q6H PRN (Reason: Pain) Qty: 12 0RF
methylprednisolone [Medrol (Tate)] 4 mg tablets,dose pack
See Rx Instructions .ROUTE .COMPLEX Qty: 21 0RF
Rx Instructions:
orally per package directions
gabapentin 300 mg capsule
300 mg PO DAILY Qty: 30 0RF
prednisone 10 mg tablet
10 mg PO DIRECTED 12 Days Qty: 12 0RF
Rx Instructions:
60 mg x 2 days
50 mg x 2 days
40 mg x 2 days
30 mg x 2 days
20 mg x 2 days
10 mg x 2 days
cyclobenzaprine 10 mg tablet
10 mg PO TID PRN (Reason: muscle spasm) Qty: 14 0RF
Referrals:
Denise Stroud DO [Family Provider] -
Interventions
Interventions:
*Risk Screen - Suicide Last Done: 02/01/24 10:11
*General Assessment Last Done: 02/01/24 10:11
*Neglect/Abuse Screening Last Done: 02/01/24 10:11
ED- Fall Risk Assessment Last Done: 02/01/24 10:17
*ED COVID-19 Vaccine History Last Done: 02/01/24 10:16
ED- Cardiac Assessment Last Done: 02/01/24 10:17
ED- Pulmonary Assessment Last Done: 02/01/24 10:17
Discharge Date and Time
Print Language: MARSHALLESE
[2024-02-01 10:43] LABS: % Eosinophils 2.2 % (0-6); % Immature Granulocytes 0.2 % (0-0.5); % Lymphocytes 20.8 % (20.5-51.1); % Monocytes 10.9 % (1.7-9.3); % Neutrophils 64.9 % (42.2-75.2); Absolute Basophils 0.1 10^3/uL (0-0.2); Absolute Eosinophils 0.1 10^3/uL (0-0.7); Absolute Lymphocytes 1.2 10^3/uL (1.2-3.4); Absolute Monocytes 0.6 10^3/uL (0.1-0.6); Absolute Neutrophils 3.8 10^3/uL (1.4-6.5); Hematocrit 46.1 % (37.0-47.0); Hemoglobin 14.4 g/dL (12.0-16.0); Mean Corp Hgb Conc. 31.2 g/dL (33.0-37.0); Mean Corpuscular Hgb 26.2 pg (27.0-31.0); Mean Platelet Volume 9.1 fL (7.4-10.4); Nucleated Red Blood Cells % 0 %; Platelet Count 287 10^3/uL (130-400); Red Blood Cell Count 5.49 10^6/uL (4.20-5.40); Red Cell Dist. Width 18.9 % (11.5-14.5); White Blood Cell Count 5.9 10^3/uL (4.8-10.8)
[2024-02-01 10:50] LABS: ALT (SGPT) 16 U/L (0-35); AST (SGOT) 17 U/L (14-36); Albumin 4.3 g/dl (3.5-5.0); Alkaline Phosphatase 66 U/L (38-126); Blood Urea Nitrogen 22 mg/dl (7-17); Calcium 9.4 mg/dl (8.4-10.2); Carbon Dioxide 28 mmol/L (22-30); Chloride 103 mmol/L (98-107); Estimated Creatinine Clearance 65 ml/min; Glucose 133 mg/dl (70-99); Potassium 4.5 mmol/L (3.5-5.1); Sodium 142 mmol/L (135-145); Total Bilirubin 0.4 mg/dl (0.2-1.3); Total Protein 6.7 g/dl (6.3-8.2); eGFR > 60.00
[2024-02-01] MEDS: SOLU-MEDROL PF 125 MG IV (11:20)
[2024-02-01] MEDS: VENTOLIN NEBULES 10 MG INH (11:21)
[2024-02-01] MEDS: ATROVENT NEBULES 1 MG INH (11:22)
[2024-02-01 11:24] LABS: COVID-19 Antigen Negative (Negative)
--- NOTE | 2024-02-01 13:44 | HPS.HSE ---
Family Physician
-
Family Physician: Denise Stroud
Chief Complaint
-
Shortness breath, cough, congestion, runny nose
History of Present Illness
78-year-old female complaining of 7 days of cough, congestion with runny nose. She reports she went to her PCP and was prescribed Z-Tate as well as steroids. She completed 4 days of Zithromax and 4 days of a Medrol dose pack of which she has 2 days
left. The patient reports this morning she had a coughing attack where she had a hard time catching her breath. She states she grabbed her nighttime oxygen and put that on but it was not helping along with taking her albuterol nebulizer 3 times a
day. She called EMS who reports she was 90% on room air on arrival. She received DuoNeb en route to the hospital by EMS feeling slightly better. She also reports her is currently sick with same symptoms. He is in the room states he gave
it to his . The patient wears oxygen at night due to reported nighttime hypoxia. She is due to schedule a formal sleep study with Dr. Villafana from pulmonology with whom she follows. She states her normal pulse ox after her mastectomy in
September has been around 95 to 97% prior is around 93%. She is still an active smoker 50 years currently smokes approximately 2 cigarettes/week. She denies headache, blurred vision, fever, chills, chest pain, palpitations, productive cough,
abdominal pain, nausea, vomiting, diarrhea, urinary symptoms
She has past medical history COPD with nighttime 2 L nasal cannula, former smoker, chronic bronchitis, HTN, HLD, LBBB, paroxysmal A-fib, DVT, CVA 2000, liposarcoma of the right leg, colonic polyps, lobular breast carcinoma with right
mastectomy/sentinel node biopsy 10/05/2023 Dr. Jean-Baptiste complicated with hematoma under skin flap requiring evacuation 10/05/2023, basal cell removal, cataract extraction
Medical History
Past Medical History
Past Medical History: Reports Other
Additional Past Medical History:
COPD
Former smoker
Chronic bronchitis
Hx LBBB
Paroxysmal A-fib
HTN
HLD
LBBB
DVT
CVA 2000
Lobular breast carcinoma with right mastectomy/sentinel node biopsy 10/05/2023 Dr. Jean-Baptiste
-complicated with hematoma under skin flap requiring evacuation 10/05/2023
Liposarcoma of the right leg
Colonic polyps
Basal cell removal
cataract extraction
Past Surgical History: Reports Other
Additional Past Surgical History:
Lobular breast carcinoma with right mastectomy/sentinel node biopsy 10/05/2023 Dr. Jean-Baptiste
-complicated with hematoma under skin flap requiring evacuation 10/05/2023
Liposarcoma of the right leg
Colonic polyps
Basal cell removal
cataract extraction
Social History
Tobacco: Smoker (50-year smoking currently still smokes 2 cigarettes a week)
Alcohol: None
Drug: None
Personal:
Living: With Family ( Lukasz)
Employment: Retired
Family History
Family History: Not pertinent
Allergies / Home Medications
Allergies reflects when Allergies were last updated in [facility].
Home Medications with original date entered in [employer] [facility]
Allergy/Medication List:
Allergies
Allergy/AdvReac Type Severity Reaction Status Date / Time
doxycycline Allergy Swelling Verified 11/24/23 12:08
hydrochlorothiazide Allergy Unknown Verified 11/24/23 12:08
Macrolide Antibiotics Allergy Hives Verified 11/24/23 12:08
nitrofurantoin Allergy swelling, Verified 11/24/23 12:08
racing
heart
Penicillins Allergy Hives Verified 11/24/23 12:08
pentazocine [From Talwin] Allergy Anaphylaxis Verified 11/24/23 12:08
pravastatin Allergy Unknown Verified 11/24/23 12:08
pseudoephedrine Allergy Hives Verified 11/24/23 12:08
[From Sudafed]
rivaroxaban [From Xarelto] Allergy racing Verified 11/24/23 12:08
heart
telithromycin Allergy Hives Verified 11/24/23 12:08
Home Medications
amlodipine 10 mg tablet 10 mg PO DAILY Blood Pressure 09/06/22
ipratropium 0.5 mg-albuterol 3 mg (2.5 mg base)/3 mL nebulization soln 3 ml inhalation R Q4HPRN PRN shortness of breath #90 mL 07/25/23
vitamin C 500 mg-multivitamin with minerals chewable tablet (Emergen-C) 1 tab PO DAILY Supplement 08/19/23
meclizine 12.5 mg tablet 12.5 mg PO Q12H PRN dizziness #6 tabs 08/22/23
tiotropium 2.5 mcg-olodaterol 2.5 mcg/actuation mist for inhalation (Stiolto Respimat) 2 puff inhalation R DAILY 09/25/23
apixaban 5 mg tablet (Eliquis) 5 mg PO BID 02/01/24
azithromycin 250 mg tablet 0 mg PO .COMPLEX 02/01/24
gabapentin 300 mg capsule 300 mg PO BID 02/01/24
Review of Systems
-
History Source: Patient and Family ( Pedro at bedside)
A 12 point ROS was completed and negative except as noted: Yes
Constitutional: Denies Fever, Fatigue or Chills
EENT: Reports Runny Nose; Denies Sore Throat
Respiratory: Reports Cough (Nonproductive) and Trouble Breathing
Cardiac: Denies Chest Pain, Diaphoresis, Palpitations or Syncope
Abdomen/GI: Denies Abdominal Pain, Nausea, Vomiting, Diarrhea, Constipated, Bloody Stools or Black Stools
: Denies Dysuria, Frequency, Flank Pain, Incontinence or Difficulty Voiding
Musculoskeletal: Denies Joint Pain or Edema
Skin: Denies Itching or Rash
Neurological: Denies Dizzy, Headache or Weakness
Endocrine: Reports No Symptoms
Hematologic/Lymphatic: Reports No Symptoms
Psych: Reports Calm
Physical Exam
Vital Signs
Vital Signs
Temp Pulse Resp BP Pulse Ox
98.3 F 94 22 135/60 98
02/01/24 10:05 02/01/24 13:00 02/01/24 10:05 02/01/24 13:00 02/01/24 13:00
Physical Exam
General: Comfortable and Conversant; No Pain, Fever or Chills
HEENT: NormoCephalic, Anicteric, Moist mucous membranes, PERRLA, [place] Conjunctivae, No Ptosis, Neck Nontender and Oxygen (2 L nasal cannula); No Pharyngeal Erythema
Respiratory: Wheezes (Bilaterally throughout both lung vazquez); No Rales, Rhonchi or Crackles
Cardiac: S1/S2 and Regular Rhythm; No Murmur, Rub, Gallop or Peripheral Edema
Breast: Deferred by me
GI: Soft, Non Tender, Non Distended, Normal Bowel Sounds and No Hepatosplenomegaly
Rectal: Deferred by Provider
Genito-urinary: Deferred by me
Musculoskeletal: No Clubbing, No Cyanosis and No Edema
Skin: Warm and Dry; No Rash
Neuro: AO x 3, No Motor Deficits, Cranial Nerves Intact and No Sensory Deficits; No Slurred Speech, Facial Droop, Tremors or Sedated
Psych: Calm
Laboratory Results
-
02/01/24 10:25
02/01/24 10:25
Laboratory Results
Total Bilirubin 0.4 mg/dl (0.2-1.3) 02/01/24 10:25
AST 17 U/L (14-36) 02/01/24 10:25
ALT 16 U/L (0-35) 02/01/24 10:25
Alkaline Phosphatase 66 U/L (38-126) 02/01/24 10:25
Data Reviewed
-
Diagnostic Radiology: Report Reviewed by me
Lab Data: Labs Reviewed by me
Impression/Plan
-
Impression/plan:
Admit to MedSurg
#Acute hypoxic resp insuff 2/2 acute on chronic COPD exacerbation Viral
# Active smoker-cessation advised, no history intubations from COPD
#Chronic bronchitis
Symptoms started Friday 7 days ago with same exact symptoms both afebrile
Just finished 4-day course of Z-Tate-will hold last pill as this is viral
COVID/influenza negative
-91% RA, 98% 2 L nasal cannula
-Methylprednisolone 125 mg given in ER
-Continue Decadron 4 mg every 12
-DuoNebs scheduled and as needed
-Consult PT/OT/case management
CXR: No acute cardiopulmonary abnormality
EKG: NSR 92 bpm, LBBB, QTc 479 MS (prior history LBBB)
#Active smoker
Prior 55-[id number]-mqhd 1 pack a day still smoking 2 cigarettes a week
-Cessation advised
#Hx LBBB
#Paroxysmal A-fib
-Continue Eliquis 5 mg twice daily
-No rate control meds
#HTN
BP 135/60
-Continue amlodipine 10 mg daily
#Neuropathy
-Continue gabapentin 300 mg twice daily
#HLD
-No reported meds
#LBBB
#DVT hx
#CVA 2000
-Continue Eliquis
#Lobular breast carcinoma with right mastectomy/sentinel node biopsy 10/05/2023 Dr. Jean-Baptiste
-complicated with hematoma under skin flap requiring evacuation 10/05/2023
#Vertigo
-Continue meclizine as needed
Other PMH:
Liposarcoma of the right leg
Colonic polyps
Basal cell removal
cataract extraction
DVT prophylaxis
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
Full code with Lukasz at bedside
--- NOTE | 2024-02-01 14:40 | W.PN.UPDATE ---
Update Note
Progress Note Update
This is an addendum to the H&P written by Allie Miller on 02/01/2024. 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
78-year-old female past medical history of COPD, former smoker, left unremarkable, paroxysmal atrial fibrillation on Eliquis, hypertension, hyperlipidemia, DVT, prior CVA, breast cancer status post right mastectomy/sentinel node biopsy, liposarcoma
right leg, colonic polyps, basal cell removal, presenting with 1 week of nonproductive cough and shortness of breath and wheezing. She was treated with azithromycin and Medrol Dosepak for 4 days.
with similar symptoms.
COVID and influenza negative. Chest x-ray unremarkable. Bilateral rhonchi/wheezing on examination.
Likely viral URI induced COPD exacerbation. DuoNebs every 6 hours, dexamethasone.
--- NOTE | 2024-02-01 16:45 | PTCARENOTE ---
Pt arrived to rm 406-2 at this time from the ED. Pt admitted med/surg, 2L of O2 via NC, see shift assessment for further detail. Oriented pt to plan of care, reporting concerns, call faria, medications etc - pt verbalized understanding. Call faria
within reach.
[2024-02-01] MEDS: NEURONTIN 300 MG PO (18:45)
[2024-02-01] MEDS: DUONEB 3 ML INH (19:27)
[2024-02-01] MEDS: ELIQUIS 5 MG PO (19:54)
[2024-02-01] MEDS: MUCINEX 600 MG PO (19:54)
[2024-02-01] MEDS: ROBITUSSIN 100 MG PO (20:37)
[2024-02-01] MEDS: DECADRON 4 MG IV (21:28)
[2024-02-02 00:30] VITALS: BP 146/86
[2024-02-02] MEDS: DUONEB 3 ML INH ×4 (07:37→20:13)
[2024-02-02 08:13] LABS: % Basophils 0.2 % (0-2); % Immature Granulocytes 0.7 % (0-0.5); % Monocytes 10.4 % (1.7-9.3); % Neutrophils 74.7 % (42.2-75.2); Absolute Lymphocytes 0.8 10^3/uL (1.2-3.4); Absolute Monocytes 0.6 10^3/uL (0.1-0.6); Hematocrit 41.8 % (37.0-47.0); Hemoglobin 13.1 g/dL (12.0-16.0); Mean Corp Hgb Conc. 31.3 g/dL (33.0-37.0); Mean Corpuscular Hgb 26.1 pg (27.0-31.0); Mean Corpuscular Volume 83.3 fL (81.0-99.0); Nucleated Red Blood Cells % 0 %; Platelet Count 291 10^3/uL (130-400); Red Blood Cell Count 5.02 10^6/uL (4.20-5.40); Red Cell Dist. Width 18.7 % (11.5-14.5); White Blood Cell Count 5.4 10^3/uL (4.8-10.8)
[2024-02-02 08:15] VITALS: BP 137/80
[2024-02-02 08:39] LABS: ALT (SGPT) 17 U/L (0-35); AST (SGOT) 15 U/L (14-36); Albumin 3.8 g/dl (3.5-5.0); Alkaline Phosphatase 67 U/L (38-126); Blood Urea Nitrogen 26 mg/dl (7-17); Calcium 9.4 mg/dl (8.4-10.2); Carbon Dioxide 30 mmol/L (22-30); Chloride 104 mmol/L (98-107); Estimated Creatinine Clearance 65 ml/min; Glucose 115 mg/dl (70-99); Potassium 4.5 mmol/L (3.5-5.1); Sodium 140 mmol/L (135-145); Total Bilirubin 0.2 mg/dl (0.2-1.3); eGFR > 60.00
[2024-02-02 09:00] VITALS: BP 124/74; PULSE 87; O2SAT 95
[2024-02-02] MEDS: NEURONTIN 300 MG PO ×2 (09:13→20:52)
[2024-02-02] MEDS: ELIQUIS 5 MG PO ×2 (09:14→20:52)
[2024-02-02] MEDS: NORVASC 10 MG PO (09:14)
[2024-02-02] MEDS: MUCINEX 600 MG PO ×2 (09:14→20:52)
[2024-02-02 09:30] VITALS: BP 124/74; PULSE 85; O2SAT 95
[2024-02-02] MEDS: DECADRON 4 MG IV ×2 (09:43→21:55)
[2024-02-02] MEDS: ROBITUSSIN 200 MG PO ×3 (09:43→21:56)
[2024-02-02 11:20] VITALS: BMI 23.1
--- NOTE | 2024-02-02 11:23 | PTOTSP ---
Patient pleasant and motivated to participate in therapy evaluation. Demonstrates good insight into safety with mobility and ambulation without use of AD.
At this time, does not demonstrate further need for skilled therapy and will be discharged at this time. If needs change, please re-consult.
--- NOTE | 2024-02-02 12:05 | W.PN.HOSP.TC ---
Today's Communication/Plan
-
possible DC tomorrow post home O2 testing if continues to clinically improve
Assessment / Plan
Assessment / Plan
Ms. Genevieve Morgan is a 78 yo woman with past medical history of COPD, former smoker, left unremarkable, paroxysmal atrial fibrillation on Eliquis, hypertension, hyperlipidemia, DVT, prior CVA, breast cancer status post right mastectomy/sentinel node
biopsy, liposarcoma right leg, colonic polyps, basal cell removal, presenting with 1 week of nonproductive cough and shortness of breath and wheezing. She was treated with azithromycin and Medrol Dosepak for 4 days.
with similar symptoms.
COVID and influenza negative. Chest x-ray unremarkable. Bilateral rhonchi/wheezing on examination.
#Acute hypoxic resp insuff 2/2 acute on chronic COPD exacerbation
#Active smoker-cessation advised, no history intubations from COPD
#Chronic bronchitis
-s/p Azithromycin course
-COVID/influenza negative
-91% RA, 98% 2 L nasal cannula
-Methylprednisolone 125 mg given in ER
-Continue Decadron 4 mg every 12
-DuoNebs scheduled and as needed
-PT/OT
-home O2 testing this morning
#Active smoker
Prior 84-ehbj-rpli 1 pack a day still smoking 2 cigarettes a week
-Cessation advised
#Hx LBBB
#Paroxysmal A-fib
-Continue Eliquis 5 mg twice daily
-No rate control meds
#HTN
BP 135/60
-Continue amlodipine 10 mg daily
#Neuropathy
-Continue gabapentin 300 mg twice daily
#HLD
-No reported meds
#LBBB
#DVT hx
#CVA 2000
-Continue Eliquis
#Lobular breast carcinoma with right mastectomy/sentinel node biopsy 10/05/2023 Dr. Jean-Baptiste
-complicated with hematoma under skin flap requiring evacuation 10/05/2023
#Vertigo
-Continue meclizine as needed
Other PMH:
Liposarcoma of the right leg
Colonic polyps
Basal cell removal
cataract extraction
DVT prophylaxis
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
Full code with Lukasz at bedside
Anticipated Discharge: 24 - 48 hours
Subjective/Interval History
-
Date of Service: February 02, 2024
breathing improved from yesterday
ambulating better
continues to have wheezing
Objective Data
-
Labs:
Laboratory Results
02/02/24
07:46
WBC 5.4
Hgb 13.1
Hct 41.8
Plt Count 291
Sodium 140
Potassium 4.5
Chloride 104
Carbon Dioxide 30
BUN 26 H
Creatinine 0.7
Glucose 115 H
Calcium 9.4
Total Bilirubin 0.2
AST 15
ALT 17
Alkaline Phosphatase 67
Vital Signs:
Vital Signs
Temp Pulse Resp BP Pulse Ox
97.9 F 80 15 137/80 95
02/02/24 08:15 02/02/24 11:25 02/02/24 11:25 02/02/24 08:15 02/02/24 11:20
I&O
02/01/24 02/02/24 02/03/24
06:59 06:59 06:59
Intake Total 240 / 240
Balance 240 / 240
Review of Systems
-
History Source: Patient
All other systems: Reviewed and negative
Physical Exam
-
General: No Apparent Distress
HEENT: PERRLA
Respiratory: Wheezes
Cardiac: Regular Rhythm and S1/S2
GI: Soft and Nontender
Musculoskeletal: No Edema
Skin: Warm and Dry; Negative Rash
Neuro: AO x 3
Psych: Calm
Data Reviewed
-
Diagnostic Radiology: Report Reviewed by me
Labs: Labs Reviewed by me
[2024-02-02] MEDS: COLACE 200 MG PO (12:26)
[2024-02-02 15:50] VITALS: BP 143/65
[2024-02-02 20:30] VITALS: BMI 23.1
[2024-02-02] MEDS: TYLENOL 650 MG PO (21:56)
[2024-02-02 23:45] VITALS: BP 131/72
[2024-02-03 07:35] VITALS: BP 120/73
[2024-02-03] MEDS: DUONEB 3 ML INH ×4 (08:02→19:47)
[2024-02-03] MEDS: MUCINEX 600 MG PO ×2 (08:13→21:38)
[2024-02-03] MEDS: NEURONTIN 300 MG PO ×2 (08:13→21:38)
[2024-02-03] MEDS: NORVASC 10 MG PO (08:13)
[2024-02-03] MEDS: COLACE 200 MG PO (08:13)
[2024-02-03] MEDS: ROBITUSSIN 200 MG PO ×3 (08:15→22:53)
[2024-02-03] MEDS: DECADRON 4 MG IV ×2 (08:15→21:39)
[2024-02-03] MEDS: ELIQUIS 5 MG PO ×2 (08:15→21:38)
[2024-02-03] MEDS: TYLENOL 650 MG PO ×2 (10:29→21:39)
--- NOTE | 2024-02-03 12:06 | W.PN.HOSP.TC ---
Today's Communication/Plan
-
see plan
Assessment / Plan
Assessment / Plan
Ms. Genevieve Morgan is a 78 yo woman with past medical history of COPD, former smoker, left unremarkable, paroxysmal atrial fibrillation on Eliquis, hypertension, hyperlipidemia, DVT, prior CVA, breast cancer status post right mastectomy/sentinel node
biopsy, liposarcoma right leg, colonic polyps, basal cell removal, presenting with 1 week of nonproductive cough and shortness of breath and wheezing. She was treated with azithromycin and Medrol Dosepak for 4 days.
with similar symptoms.
COVID and influenza negative. Chest x-ray unremarkable. Bilateral rhonchi/wheezing on examination.
#Acute hypoxic resp insuff 2/2 acute on chronic COPD exacerbation
#Active smoker-cessation advised, no history intubations from COPD
#Chronic bronchitis
-s/p Azithromycin course as outpatient
-COVID/influenza negative
-91% RA, 98% 2 L nasal cannula
-Methylprednisolone 125 mg given in ER
-Continue Decadron 4 mg every 12
-DuoNebs scheduled and as needed
-Mucinex BID, Acapella
-home O2 testing tomorrow AM
-possible DC home tomorrow if exam improved and amb pulse Ox OK
#Active smoker
Prior 61-vqbe-hyjl 1 pack a day - reports having quit (states smoked 2 cigarettes this year)
#Hx LBBB
#Paroxysmal A-fib
-Continue Eliquis 5 mg twice daily
-No rate control meds
#HTN
BP 135/60
-Continue amlodipine 10 mg daily
#Neuropathy
-Continue gabapentin 300 mg twice daily
#HLD
-No reported meds
#LBBB
#DVT hx
#CVA 2000
-Continue Eliquis
#Lobular breast carcinoma with right mastectomy/sentinel node biopsy 10/05/2023 Dr. Jean-Baptiste
-complicated with hematoma under skin flap requiring evacuation 10/05/2023
#Vertigo
-Continue meclizine as needed
Other PMH:
Liposarcoma of the right leg
Colonic polyps
Basal cell removal
cataract extraction
DVT prophylaxis
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
Full code with Lukasz at bedside
Anticipated Discharge: 24 - 48 hours
Subjective/Interval History
-
Date of Service: February 03, 2024
coughing up mucus
feels more fatigued today, + wheezing
Objective Data
-
Vital Signs:
Vital Signs
Temp Pulse Resp BP Pulse Ox
97.6 F 92 18 120/73 89
02/03/24 07:35 02/03/24 11:30 02/03/24 11:30 02/03/24 07:35 02/03/24 08:02
I&O
02/02/24 02/03/24 02/04/24
06:59 06:59 06:59
Intake Total 240 / 240 240 / 240
Balance 240 / 240 240 / 240
Review of Systems
-
History Source: Patient
All other systems: Reviewed and negative
Physical Exam
-
General: No Apparent Distress
HEENT: PERRLA
Respiratory: Wheezes
Cardiac: Regular Rhythm and S1/S2
GI: Soft and Nontender
Musculoskeletal: No Edema
Skin: Warm and Dry; Negative Rash
Neuro: AO x 3
Psych: Calm
Data Reviewed
-
Diagnostic Radiology: Report Reviewed by me
Labs: Labs Reviewed by me
[2024-02-03 15:35] VITALS: BP 115/65
[2024-02-03 18:46] VITALS: BMI 23.1
[2024-02-03 23:59] VITALS: BP 134/73
[2024-02-04] MEDS: DUONEB 3 ML INH ×2 (07:25→11:03)
[2024-02-04 07:55] VITALS: BP 155/89
[2024-02-04] MEDS: ELIQUIS 5 MG PO (08:13)
[2024-02-04] MEDS: COLACE 200 MG PO (08:13)
[2024-02-04] MEDS: NORVASC 10 MG PO (08:14)
[2024-02-04] MEDS: NEURONTIN 300 MG PO (08:14)
[2024-02-04] MEDS: MUCINEX 600 MG PO (08:14)
[2024-02-04] MEDS: TYLENOL 650 MG PO (08:14)
[2024-02-04] MEDS: ROBITUSSIN 200 MG PO (08:15)
[2024-02-04] MEDS: DECADRON 4 MG IV (08:16)
--- NOTE | 2024-02-04 13:12 | W.PN.HOSP.TC ---
Addendum entered and electronically signed by Boston Galindo MD 02/04/24 17:33:
[id number]
Original Note:
Today's Communication/Plan
-
follow-up noncontrast CT chest in 6-12 months
Decadron, switch over to prednisone taper upon discharge
resume home inhalers at discharge
Does not require/qualify for home oxygen at home
Follow-up pulmonary outpatient
F/u PCP outpatient
Assessment / Plan
Assessment / Plan
Ms. Genevieve Morgan is a 78 yo woman with past medical history of COPD, former smoker, left unremarkable, paroxysmal atrial fibrillation on Eliquis, hypertension, hyperlipidemia, DVT, prior CVA, breast cancer status post right mastectomy/sentinel node
biopsy, liposarcoma right leg, colonic polyps, basal cell removal, presenting with 1 week of nonproductive cough and shortness of breath and wheezing. She was treated with azithromycin and Medrol Dosepak for 4 days.
with similar symptoms.
COVID and influenza negative. Chest x-ray unremarkable. Bilateral rhonchi/wheezing on examination.
#Acute hypoxic resp insuff 2/2 acute on chronic COPD exacerbation
#Active smoker-cessation advised, no history intubations from COPD
#Chronic bronchitis
-s/p Azithromycin course as outpatient
-COVID/influenza negative
-Methylprednisolone 125 mg given in ER
-Decadron, switch over to prednisone taper upon discharge
-DuoNebs scheduled and as needed, resume home inhalers
-Does not require/qualify for home oxygen at home
-Follow-up pulmonary outpatient
#Active smoker
Prior [id number] 1 pack a day - reports having quit (states smoked 2 cigarettes this year)
Smoking Cessation advised
#Hx LBBB
#Paroxysmal A-fib
-Continue Eliquis 5 mg twice daily
-No rate control meds
#HTN
BP 135/60
-Continue amlodipine 10 mg daily
#Neuropathy
-Continue gabapentin 300 mg twice daily
#HLD
-No reported meds
#LBBB
#DVT hx
#CVA 2000
-Continue Eliquis
#Lobular breast carcinoma with right mastectomy/sentinel node biopsy 10/05/2023 Dr. Jean-Baptiste
-complicated with hematoma under skin flap requiring evacuation 10/05/2023
#Vertigo
-Continue meclizine as needed
#Stable probable benign noncalcified pulmonary nodules
� Follow-up with CT chest in 6 to 12 months
� Follow-up pulmonary outpatient
Other PMH:
Liposarcoma of the right leg
Colonic polyps
Basal cell removal
cataract extraction
DVT prophylaxis
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
More than 30 minutes spent in discharge including
Final examination of the patient
Summarizing hospital stay
Instructions for continuing care to all relevant caregivers
Preparation of discharge records, prescriptions, and referral forms
Total time spent (37 in minutes):
Anticipated Discharge: Today
Subjective/Interval History
-
Date of Service: February 04, 2024
Does not require oxygen upon ambulation
Objective Data
-
Vital Signs:
Vital Signs
Temp Pulse Resp BP Pulse Ox
98 F 102 16 161/90 91
02/04/24 07:55 02/04/24 11:06 02/04/24 11:06 02/04/24 08:14 02/04/24 08:25
I&O
02/03/24 02/04/24 02/05/24
06:59 06:59 06:59
Intake Total 240 / 240 600 / 600
Balance 240 / 240 600 / 600
Review of Systems
-
History Source: Patient
All other systems: Not reviewed unless documented
Physical Exam
-
General: No Apparent Distress
HEENT: PERRLA
Cardiac: Regular Rhythm and S1/S2
GI: Soft and Nontender
Musculoskeletal: No Edema
Skin: Warm and Dry; Negative Rash
Neuro: AO x 3
Psych: Calm
Data Reviewed
-
Diagnostic Radiology: Report Reviewed by me
Labs: Labs Reviewed by me
--- NOTE | 2024-02-04 13:19 | W.DS.TRANS ---
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
-
Discharge Instructions:
Sleep Apnea Risk Intermediate
Discharge Diagnosis/Procedures
#Acute hypoxic resp insuff 2/2 acute on chronic
COPD exacerbation
#Active smoker-cessation advised, no history
intubations from COPD
Diet Low Cholesterol,Low Fat
Activity As tolerated
Others Tests follow-up noncontrast CT chest in 6-12 months
Instructions:
Stand-Alone Forms:
Changes to Home Medications: Yes
Discharge Medications:
DC Medications w/original date entered in [employer]
amlodipine 10 mg tablet 10 mg PO DAILY Blood Pressure 09/06/22
ipratropium 0.5 mg-albuterol 3 mg (2.5 mg base)/3 mL nebulization soln 3 ml inhalation R Q4HPRN PRN shortness of breath #90 mL 07/25/23
vitamin C 500 mg-multivitamin with minerals chewable tablet (Emergen-C) 1 tab PO DAILY Supplement 08/19/23
meclizine 12.5 mg tablet 12.5 mg PO Q12H PRN dizziness #6 tabs 08/22/23
tiotropium 2.5 mcg-olodaterol 2.5 mcg/actuation mist for inhalation (Stiolto Respimat) 2 puff inhalation R DAILY Lung/Breathing Issues 09/25/23
apixaban 5 mg tablet (Eliquis) 5 mg PO BID Blood Clot Prevention/Tx 02/01/24
gabapentin 300 mg capsule 300 mg PO BID 02/01/24
guaifenesin 100 mg/5 mL oral liquid 200 mg (10 mL) PO Q4HPRN PRN cough #500 mL 02/04/24
prednisone 10 mg tablet See Rx Instructions .Route .COMPLEX #45 tabs 02/04/24
Home Medication Changes
guaifenesin 100 mg/5 mL oral liquid 200 mg (10 mL) PO Q4HPRN PRN cough #500 mL 02/04/24
prednisone 10 mg tablet See Rx Instructions .Route .COMPLEX #45 tabs 02/04/24
Pending Results: No
--- NOTE | 2024-02-04 13:27 | CM ---
CM met with Genevieve to complete IA.
Genevieve lives with her spouse in a one floor apartment at [address] in [place]. The complex has elevator access. Patient stated that she takes care of her spouse who has multiple dx and is w/c bound. She confirmed that she has family close to assist
her with him when needed.
Patient reported that she is independent with all ADLs, personal care, dressing, bathing and ambulates without device. 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
She wears o2 at night and confirmed that she has a concentrator as well as a nebulizer.
Patient has a prescription plan and uses [facility] in [place].
PCP: Yeni Jaimes.
Plan: Pt cleared for return home today with no identified needs.
[2024-02-04 13:34] VITALS: BP 138/75
== END 2024-02-04 14:31 | disposition home or self-care (01) | DRG 190 ==
LOC: 4 EAST ACU 14:51
PROVIDERS: Clinical Nurse Specialist Family Health; ADMITTING PHYSICIAN Hospitalist; ATTENDING PHYSICIAN Internal Medicine; EMERGENCY PHYSICIAN Student in an Organized Health Care Education/Training Program; FAMILY PHYSICIAN Family Medicine
DX: J44.1 Chronic obstructive pulmonary disease with (acute) exacerbation (principal); J96.01 Acute respiratory failure with hypoxia; F17.210 Nicotine dependence, cigarettes, uncomplicated; Z11.52 Encounter for screening for COVID-19; I44.7 Left bundle-branch block, unspecified; I48.0 Paroxysmal atrial fibrillation; I10 Essential (primary) hypertension; E78.5 Hyperlipidemia, unspecified; Z86.718 Personal history of other venous thrombosis and embolism; Z86.73 Personal history of transient ischemic attack (TIA), and cerebral infarction without residual deficits; C50.919 Malignant neoplasm of unspecified site of unspecified female breast; Z90.11 Acquired absence of right breast and nipple; Z86.0100 Personal history of colon polyps, unspecified; G62.9 Polyneuropathy, unspecified; Z88.3 Allergy status to other anti-infective agents; Z88.1 Allergy status to other antibiotic agents; Z88.0 Allergy status to penicillin; Z79.01 Long term (current) use of anticoagulants
CPT/HCPCS: 71046; 80053; 85025; 87502; 87811; 93005; 94640; 96374; 97162; 97166; 99285

== ENCOUNTER → 2024-03-19 09:52 | Outpatient (REF) | payer OTHER, SELFPAY | LOC: HWRAD 09:52 | PROVIDERS: ATTENDING PHYSICIAN Nurse Practitioner Adult Health | DX: R10.11 Right upper quadrant pain (principal) | CPT/HCPCS: 76700 ==

== ENCOUNTER → 2024-04-20 09:30 | Outpatient (REF) | payer OTHER, SELFPAY ==
[2024-04-20 13:04] LABS: % Eosinophils 4.3 % (0-6); % Lymphocytes 22.9 % (20.5-51.1); % Monocytes 9.3 % (1.7-9.3); % Neutrophils 61.5 % (42.2-75.2); Absolute Basophils 0.1 10^3/uL (0-0.2); Absolute Eosinophils 0.2 10^3/uL (0-0.7); Absolute Lymphocytes 1.1 10^3/uL (1.2-3.4); Absolute Monocytes 0.5 10^3/uL (0.1-0.6); Hematocrit 47.8 % (37.0-47.0); Hemoglobin 15.2 g/dL (12.0-16.0); Mean Corp Hgb Conc. 31.8 g/dL (33.0-37.0); Mean Corpuscular Hgb 29.1 pg (27.0-31.0); Mean Corpuscular Volume 91.6 fL (81.0-99.0); Mean Platelet Volume 10.7 fL (7.4-10.4); Nucleated Red Blood Cells % 0 %; Platelet Count 245 10^3/uL (130-400); Red Blood Cell Count 5.22 10^6/uL (4.20-5.40); Red Cell Dist. Width 14.7 % (11.5-14.5); White Blood Cell Count 4.9 10^3/uL (4.8-10.8)
[2024-04-20 13:51] LABS: ALT (SGPT) 12 U/L (0-35); AST (SGOT) 17 U/L (14-36); Albumin 4.2 g/dl (3.5-5.0); Alkaline Phosphatase 87 U/L (38-126); Blood Urea Nitrogen 15 mg/dl (7-17); Calcium 9.7 mg/dl (8.4-10.2); Carbon Dioxide 30 mmol/L (22-30); Chloride 102 mmol/L (98-107); Glucose 97 mg/dl (70-99); Lipase 56 U/L (23-300); Potassium 3.9 mmol/L (3.5-5.1); Sodium 139 mmol/L (135-145); Total Bilirubin 0.5 mg/dl (0.2-1.3); Total Protein 6.8 g/dl (6.3-8.2); eGFR > 60.00
== END ==
LOC: HWLAB 09:30
PROVIDERS: ATTENDING PHYSICIAN Student in an Organized Health Care Education/Training Program; FAMILY PHYSICIAN Nurse Practitioner Adult Health
DX: R10.11 Right upper quadrant pain (principal)
CPT/HCPCS: 36415; 74019; 80053; 83690; 85025

== ENCOUNTER 2024-05-06 06:25 | Day surgery (SDC) | payer OTHER, SELFPAY ==
[2024-05-06] VITALS (9 sets, daily range): BP systolic 126–159; BP diastolic 69–147; BMI 25.3
[2024-05-06] MEDS: ZOFRAN 4 MG PO (11:34)
== END 2024-05-06 13:00 | disposition home or self-care (01) ==
LOC: SDS 06:25
PROVIDERS: ATTENDING PHYSICIAN Internal Medicine Gastroenterology
DX: C7A.8 Other malignant neuroendocrine tumors (principal); K80.20 Calculus of gallbladder without cholecystitis without obstruction; K83.8 Other specified diseases of biliary tract; R93.5 Abnormal findings on diagnostic imaging of other abdominal regions, including retroperitoneum; Z79.01 Long term (current) use of anticoagulants; R10.11 Right upper quadrant pain; K44.9 Diaphragmatic hernia without obstruction or gangrene; K31.7 Polyp of stomach and duodenum; K22.89 Other specified disease of esophagus; D21.4 Benign neoplasm of connective and other soft tissue of abdomen
CPT/HCPCS: 43238; 43239; 43251; 88173; 88305; 88341; 88342; 88360

== ENCOUNTER → 2024-07-03 09:44 | Outpatient (REF) | payer OTHER, SELFPAY | LOC: WDC 09:44 | PROVIDERS: ATTENDING PHYSICIAN Family Medicine Geriatric Medicine; FAMILY PHYSICIAN Nurse Practitioner Adult Health | DX: Z12.31 Encounter for screening mammogram for malignant neoplasm of breast (principal) | CPT/HCPCS: 77063; 77067 ==

== ENCOUNTER → 2024-07-05 09:39 | Outpatient (REF) | payer OTHER, SELFPAY | LOC: HWRAD 09:39 | PROVIDERS: ATTENDING PHYSICIAN Nurse Practitioner Family; FAMILY PHYSICIAN Nurse Practitioner Adult Health | DX: J44.9 Chronic obstructive pulmonary disease, unspecified (principal) | CPT/HCPCS: 71250 ==

== ENCOUNTER 2024-09-13 13:46 | Inpatient (IN) | payer OTHER, SELFPAY ==
[2024-09-13] VITALS (11 sets, daily range): BP systolic 107–151; BP diastolic 52–93; BMI 23.4
--- NOTE | 2024-09-13 09:02 | ED.GENMED ---
History of Present Illness
General
Chief Complaint: Breathing Problem
Source: patient
Exam Limitations: none
Time Seen by Provider: 09/13/24 08:48
Nursing documentation reviewed up to this point in time: agreed with
History of Present Illness
History of Present Illness:
Patient is a 79-year-old female with history of COPD, PE/A-fib on Eliquis, right breast mastectomy presents to the ER for evaluation. Pt wears O2 2 l at night and c/o of worsening SOB for past several days. Pt denies chest pain, denies any
recent fever/chills. She report last night on Oxygen her pulse ox was 87-88 % and normally she runs about 92- 93%. She has inhalers at home but is not used her nebulizers. She is on Eliquis and has not missed a dose.
Past History
Past History
ED Past Medical History: Arrthythmia (afib), COPD, HTN and Other (New diagnosis right lobular breast CA)
Social History
Tobacco: Former smoker
Alcohol: None
Drug: None
Phy Exam
General Physical Exam
General Presentation: no apparent distress
General age: appears stated age
General Skin: warm and dry
General Habitus: normal
General Hydration: appears well hydrated
Cardiovascular Exam
Cardiovascular Exam: regular rate/rhythm, no murmur and normal peripheral pulses
Pulmonary Exam
Pulmonary Exam: other (Decreased throughout tachypneic with ambulation)
Neurological Exam
Neurological Exam: alert and oriented x3
Musculoskeletal Exam
Musculoskeletal Exam: full ROM
Skin Exam
Skin Exam: normal color and warm/dry
Psychiatric Exam
Psychiatric Exam: normal mood/affect
Scores
Heart Failure Risk
Heart Failure Risk Score: Not Applicable
Course
Orders/Labs/Results
Orders:
Orders
09/13/24 Breakfast
Regular
At Your Request: Limited Participation
Does patient need a safe tray?: No
09/13/24 08:32
Electrocardiogram (*1) Urgent
Reason for Study: Shortness of Breath
09/13/24 09:00
Electrocardiogram (*1) Stat
Reason for Study: Other
Other Reason for Exam: chest pain
Cardiac Monitoring- Treatment ONCE
IV Insert/Care/Rem.- Treatment PRN
CR Chest - 2 Views Urgent
Comment:
Reason For Exam: SOB
09/13/24 09:01
Albuterol Sulfate [Ventolin Nebules] 7.5 mg INH R NOW STA
Dexamethasone Sod Phosphate [Decadron] 10 mg IV NOW STA
Ipratropium Nebs [Atrovent Nebules] 1 mg INH R NOW STA
Ipratropium/Albuterol Sulfate [Duoneb] See Dose Instructions .ROUTE .STK-MED ONE
09/13/24 09:26
Complete Blood Count/With Diff Urgent
Comprehensive Metabolic Panel Urgent
09/13/24 09:39
Urinalysis Reflex To Culture Urgent
Date Specimen was Collected: 09/13/24
Time Specimen was Collected: 09:38
Urine Microscopic Reflex Cult Urgent
Urine Culture Urgent
ELISABETH Source: U
Specimen Description:
Date Specimen was Collected: 09/13/24
Time Specimen was Collected: 09:38
09/13/24 13:18
Admit/Transfer Patient As Directed
Co-Sign Provider:
Level of Care: Inpatient admission
Assign to:: Telemetry
Physician / Group: virginia
Diagnosis: acute hypoxic respiratory failure
Reason for Telemetry: Arrhythmia
Date to Stop Telemetry: 09/16/24
Time to Stop Telemetry: 11:00
Reason for Hospitalization: acute hypoxia
Expected length of stay greater than two midnights?: Yes
ELOS- Estimated Length of Stay in days: 3
I certify the patient meets the requirements for IP care: Yes
PRN Pain Medication Management As Directed
May give lesser potent ordered pain med per pt: Yes
preference::
Protocol:: Medication orders for pain may be administered in a
manner that supports deferring to patient preference
when the pt is:
- Requesting an ordered lesser potent pain medication.
Least to most potent pain medications are defined
as: acetaminophen < NSAID < tramadol < opioids
(morphine, oxycodone, hydromorphone).
- Requesting a lesser dose of the same medication IF
ORDERED.
- Requesting a less intrusive route of administration
if both routes are prescribed by the provider (PO <
IV).
09/13/24 13:19
Code Status As Directed
Resuscitation Status: Do not resuscitate
Reached after discussion with pt or family/Healthcare POA: Yes
DNR Bracelet Application ONCE
09/13/24 15:06
Acetaminophen [Tylenol] 650 mg PO Q4HPRN PRN
Ipratropium/Albuterol Sulfate [Duoneb] 3 ml INH R Q4HPRN PRN
09/13/24 15:06
Activity As Directed
Activity Level: As Tolerated
Intake/ Output As Directed
Frequency: Per unit guidelines
Vital Signs As Directed
Frequency: Per unit guidelines
Copd Education [RESP] Routine
O2 Therapy [RESP] Routine
Titrate/Wean O2 to maintain O2 sat greater than (%): 92
Special Instructions: adjust, if necessary, to avoid hyperoxia in CO2 retainers.
Use High Flow O2 if necessary
09/13/24 16:00
Ipratropium/Albuterol Sulfate [Duoneb] 3 ml INH R QID
09/13/24 18:00
Dexamethasone Sod Phosphate [Decadron] 4 mg IV Q8H
09/13/24 20:00
Apixaban [Eliquis] 5 mg PO BID
Guaifenesin [Mucinex] 600 mg PO Q12
09/14/24 08:00
Amlodipine [Norvasc] 10 mg PO DAILY
Pantoprazole [Protonix] 40 mg PO DAILY
Tiotropium Hewitt 2.5 Mcg [Spiriva Respimat 2.5 Mcg] 2 puff INH R DAILY
09/16/24 11:00
DC Protocol for Telemetry ONCE
Abnormal Lab Results
09/13/24 09/13/24
09:26 09:39
RBC 5.58 H 10^6/uL
(4.20-5.40)
Hgb 16.4 H g/dL
(12.0-16.0)
Hct 50.8 H %
(37.0-47.0)
MCHC 32.3 L g/dL
(33.0-37.0)
Absolute Lymphs (auto) 0.8 L 10^3/uL
(1.2-3.4)
Lymphocytes % 16.6 L %
(20.5-51.1)
Carbon Dioxide 32 H mmol/L
(22-30)
BUN 19 H mg/dl
(7-17)
Glucose 117 H mg/dl
(70-99)
Ur Occult Blood Reflex 2+ A
(Negative)
Leukocyte Esterase Rfl 2+ A
(Negative)
Urine Bacteria (Reflex) Few A
(Negative)
Urine Albumin (Reflex) 2+ A
(Neg - Trace)
09/13/24 09:26
09/13/24 09:26
Vital Signs
Initial and Last Documented VS:
Initial Vital Signs
Temp Pulse Resp BP Pulse Ox
98.5 F 98 17 125/87 94
09/13/24 08:15 09/13/24 08:15 09/13/24 08:15 09/13/24 08:15 09/13/24 08:15
Last Documented Vital Signs
Temp Pulse Resp BP Pulse Ox
97.9 F 87 20 137/62 88
09/14/24 02:44 09/14/24 02:44 09/14/24 02:44 09/14/24 02:44 09/14/24 02:45
MDM/Problems Addressed
Differential Diagnosis Includes:
Not limited to COPD exacerbation, pneumonia
MDM/Problems Addressed:
patient is a 79-year-old female history of COPD on home O2 presents for shortness of breath for the past several days. Symptoms are consistent with COPD exacerbation. No recent fever or chills. Despite oxygen continues to be short of breath and
is 88% on her oxygen. X-ray was done which is negative for acute findings. She was given an hour-long neb and steroids. Will likely need continued nebs and steroids. No history of heart failure and no evidence of pulmonary edema on x-ray.
Patient has a history of PE and has not missed a dose of eliquis seen.
Chronic conditions affecting care:
copd on O2
*Radiology
Radiology exam reviewed: radiology read reviewed
*Pulse Oximetry
SaO2: 88
Nasal Cannula flow liters per minute: 2
Patient hypoxic: yes
*EKG
Interpreted by ED Provider?: Yes
Interpretation: abnormal
Comparison EKG: no changes
Heart Rate: 78
Rhythm: sinus
Ischemia: no ischemia
*Critical Care Note
Total Time (30-74mins, 75-104mins- exclusive of procedures): Not Applicable
ED Attending Note
-
Portions of this chart may have been created with voice recognition software.� Occasional wrong word or��sound alike� substitutions may have occurred due to the inherent limitations of voice recognition software.
Discharge Plan
Departure
Patient Disposition: Admit
Date of Disposition: 09/13/24
Time of Disposition: 12:58
Admit to: Med/Surg
Admit to doctor: hospitalist
Presentation/result/management discussed w/ accepting MD/DO: Hospitalist
Patient with high blood pressure during this ER visit?: No
Condition: Fair
Covid-19: Not Applicable
Discharge Problem:
copd exacerbation
Interventions
Interventions:
*Risk Screen - Suicide Last Done: 09/13/24 08:29
*General Assessment Last Done: 09/13/24 09:30
*Neglect/Abuse Screening Last Done: 09/13/24 08:29
*ED- Fall Risk Assessment Last Done: 09/13/24 09:30
*ED COVID-19 Vaccine History Last Done: 09/13/24 09:30
*Nursing Disposition Last Done: 09/13/24 15:00
ED- Cardiac Assessment Last Done: 09/13/24 09:00
ED- Pulmonary Assessment Last Done: 09/13/24 09:00
Discharge Date and Time
Discharge Date/Time: 09/13/24 15:00
[2024-09-13] MEDS: VENTOLIN NEBULES 7.5 MG INH (09:13)
[2024-09-13] MEDS: ATROVENT NEBULES 1 MG INH (09:13)
[2024-09-13] MEDS: DECADRON 10 MG IV (09:30)
[2024-09-13 09:38] LABS: Hematocrit 50.8 % (37.0-47.0); Hemoglobin 16.4 g/dL (12.0-16.0); Mean Corp Hgb Conc. 32.3 g/dL (33.0-37.0); Mean Corpuscular Volume 91.0 fL (81.0-99.0); Nucleated Red Blood Cells % 0 %; Platelet Count 243 10^3/uL (130-400); Red Cell Dist. Width 14.0 % (11.5-14.5)
[2024-09-13 09:55] LABS: Urine Character Clear (Clear)
[2024-09-13 10:00] LABS: ALT (SGPT) 10 U/L (0-35); AST (SGOT) 16 U/L (14-36); Albumin 4.6 g/dl (3.5-5.0); Alkaline Phosphatase 81 U/L (38-126); Blood Urea Nitrogen 19 mg/dl (7-17); Calcium 9.8 mg/dl (8.4-10.2); Carbon Dioxide 32 mmol/L (22-30); Chloride 104 mmol/L (98-107); Glucose 117 mg/dl (70-99); Potassium 4.5 mmol/L (3.5-5.1); Sodium 141 mmol/L (135-145); Total Protein 7.2 g/dl (6.3-8.2); eGFR > 60.00
[2024-09-13 10:06] LABS: Urine Red Blood Cell 0-2 /HPF (0-2)
--- NOTE | 2024-09-13 13:02 | HPS.HSE ---
Family Physician
-
Family Physician: Yeni Jaimes
Chief Complaint
-
sob
History of Present Illness
79-year-old female with history of COPD, PE/A-fib on Eliquis, right breast mastectomy presents to the ER with sob which is worse with exertion. she uses 2l at bedtime. she denied any orthopnea. denied chest pain. stated non productive cough. denied
fever, chills, runny nose congestion. last night she was 87-88 on 2l. denied abdominal pain,n,v,d.she was treated with Cipro back in July for UTi. she is with with lower abdominal cramps and foul smelling urine. denied dysuria or hematuria.
At present she is requiring 2 L of oxygen at present she is requiring 2 L of oxygen. Patient received albuterol, dexamethasone, nebs in ER. Admitting for further management
Medical History
Past Medical History
Past Medical History: Reports Other
Additional Past Medical History:
Paroxysmal A-fib, breast cancer, COPD, DVT, basal cell carcinoma, hypertension, TIA, hyperlipidemia, anxiety, hypothyroidism, depression, pulmonary nodules
Past Surgical History: Reports Other
Additional Past Surgical History:
Right mastectomy
Lipoma removal
Basal cell removal
Bilateral cataract surgery
Moles on surgery removed
right mastectomy
Social History
Tobacco: Former Smoker
Alcohol: None
Family History
Family History: Not pertinent
Allergies / Home Medications
Allergies reflects when Allergies were last updated in [employer].
Home Medications with original date entered in [employer]
Allergy/Medication List:
Allergies
Allergy/AdvReac Type Severity Reaction Status Date / Time
doxycycline Allergy Swelling Verified 09/13/24 08:30
hydrochlorothiazide Allergy Unknown Verified 09/13/24 08:30
Macrolide Antibiotics Allergy Hives Verified 09/13/24 08:30
nitrofurantoin Allergy swelling, Verified 09/13/24 08:30
racing
heart
Penicillins Allergy Hives Verified 09/13/24 08:30
pentazocine (From Talwin) Allergy Anaphylaxis Verified 09/13/24 08:30
pravastatin Allergy Unknown Verified 09/13/24 08:30
pseudoephedrine (From Allergy Hives Verified 09/13/24 08:30
Sudafed)
rivaroxaban (From Xarelto) Allergy racing Verified 09/13/24 08:30
heart
telithromycin Allergy Hives Verified 09/13/24 08:30
Home Medications
amlodipine 10 mg tablet 10 mg PO DAILY Blood Pressure 09/06/22
vitamin C 500 mg-multivitamin with minerals chewable tablet (Emergen-C) 1 tab PO DAILY Supplement 08/19/23
tiotropium 2.5 mcg-olodaterol 2.5 mcg/actuation mist for inhalation (StiolSassor Respimat) 2 puff inhalation R DAILY Lung/Breathing Issues 09/25/23
apixaban 5 mg tablet (Eliquis) 5 mg PO BID Blood Clot Prevention/Tx 02/01/24
psyllium 1 packet PO DAILY PRN CONSTIPATION 05/06/24
omeprazole 20 mg capsule,delayed release 20 mg PO DAILY 09/13/24
Review of Systems
-
Constitutional: Reports No Symptoms
EENT: Reports No Symptoms
Respiratory: Reports Cough and Trouble Breathing
Cardiac: Reports No Symptoms
Abdomen/GI: Reports No Symptoms
: Reports No Symptoms
Musculoskeletal: Reports No Symptoms
Skin: Reports No Symptoms
Neurological: Reports No Symptoms
Endocrine: Reports No Symptoms
Hematologic/Lymphatic: Reports No Symptoms
Psych: Reports No Symptoms
Physical Exam
Vital Signs
Vital Signs
Temp Pulse Resp BP Pulse Ox
98.5 F 98 17 125/87 88
09/13/24 08:15 09/13/24 08:15 09/13/24 08:15 09/13/24 08:15 09/13/24 12:53
Physical Exam
General: Well Developed, Well Nourished and No Apparent Distress
HEENT: NormoCephalic, Moist mucous membranes and Atraumatic
Respiratory: Wheezes
Cardiac: S1/S2 and Regular Rhythm; No Murmur or Rub
GI: Soft, Non Tender, Non Distended and Normal Bowel Sounds; No Organomegaly
Rectal: Deferred by Provider
Musculoskeletal: No Clubbing, No Cyanosis and No Edema
Skin: No Rash
Neuro: AO x 3 and Nonfocal/grossly intact
Psych: Calm
Laboratory Results
-
09/13/24 09:26
09/13/24 09:26
Laboratory Results
Total Bilirubin 0.5 mg/dl (0.2-1.3) 09/13/24 09:26
AST 16 U/L (14-36) 09/13/24 09:26
ALT 10 U/L (0-35) 09/13/24 09:26
Alkaline Phosphatase 81 U/L (38-126) 09/13/24 09:26
Data Reviewed
-
Diagnostic Radiology: Report Reviewed by me
Lab Data: Labs Reviewed by me
Impression/Plan
-
# Short of breath/acute on chronic hypoxic respiratory failure secondary to COPD exacerbation
- Chest x-ray with lungs appear clear, mild cardiomegaly with no evidence of pulmonary edema
- Nebs continued
-Steroids continued
- Continue supplemental oxygen to keep sat greater than 92, wean as tolerated
#lower abdominal cramps with foul smelling urine
-UA negative.
-urine culture pending.
-hold for abx until culture resulted.
#Hx LBBB
#Paroxysmal A-fib
-Continue Eliquis 5 mg twice daily
-No rate control meds
- EKG with normal sinus rhythm with left bundle branch block
#HTN
-Continue amlodipine 10 mg daily
#CVA 2000
-Continue Eliquis
#Lobular breast carcinoma with right mastectomy/sentinel node biopsy 10/05/2023 Dr. Jean-Baptiste
-complicated with hematoma under skin flap requiring evacuation 10/05/2023
# GERD
- Omeprazole continued
#DVT prophylaxis
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
# CODE STATUS
- DNR
--- NOTE | 2024-09-13 13:59 | W.PN.UPDATE ---
Update Note
Progress Note Update
This is an addendum to H&P written by Ramonita Dang on 09/13/2024. 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
79-year-old female past medical history of COPD 2 L at night, former smoker, paroxysmal atrial fibrillation on Eliquis, left bundle branch block, hypertension, hyperlipidemia, DVT, prior CVA, breast cancer status post mastectomy/sentinel node
biopsy, liposarcoma right leg, colonic polyps, basal cell cancer status post removal, neuropathy, presenting with shortness of breath and nonproductive cough for past several days.
Also with lower abdominal cramping with foul-smelling urine without burning or frequency.
Wheezing on examination.
Chest x-ray shows no acute abnormality, mild cardiomegaly.
Urinalysis not particularly convincing for infection, shows +2 leukocyte esterase, negative nitrates 3-5 WBC.
Patient with acute COPD laceration. �DuoNebs, dexamethasone.
Hold off antibiotic for now. �Await urine culture.
[2024-09-13] MEDS: DUONEB 3 ML INH ×2 (15:19→19:53)
[2024-09-13] MEDS: DECADRON 4 MG IV (17:14)
[2024-09-13] MEDS: ELIQUIS 5 MG PO (19:16)
[2024-09-13] MEDS: MUCINEX 600 MG PO (19:16)
[2024-09-14] MEDS: DECADRON 4 MG IV ×3 (02:33→16:52)
[2024-09-14 02:44] VITALS: BP 137/62
[2024-09-14 07:44] VITALS: BP 135/75
[2024-09-14] MEDS: DUONEB 3 ML INH ×4 (07:48→19:19)
[2024-09-14] MEDS: STRIVERDI RESPIMAT 2 PUFF INH (07:48)
[2024-09-14] MEDS: MUCINEX 600 MG PO ×2 (09:37→19:03)
[2024-09-14] MEDS: NORVASC 10 MG PO (09:38)
[2024-09-14] MEDS: PROTONIX 40 MG PO (09:38)
[2024-09-14] MEDS: ELIQUIS 5 MG PO ×2 (09:38→19:04)
[2024-09-14 11:11] VITALS: BP 134/68
[2024-09-14 15:58] VITALS: BP 130/56
--- NOTE | 2024-09-14 17:01 | CM ---
Patient seen at bedside on with physicians. Patient states that she lives in [place] with who is confined to wheelchair and he is on [employer] she is not. Patient has a nebulizer and home O2 from [employer]. Patient does not have
home VN at this time. Patient uses O2 at night only. Patient plan is for home with VN vs SNF. CM will continue to follow for discharge planning needs.
Plan; home with no needs.
--- NOTE | 2024-09-14 18:44 | W.PN.HOSP.TC ---
Addendum entered and electronically signed by Lise Hurtado MD 09/14/24 20:35:
I saw and evaluated the patient independently. I reviewed the resident�s note and agree with findings and plan as documented by Dr. Zuniga.
GENERAL: well developed, well nourished, female in no apparent distress
HEENT: NC/AT--O2 NC [address]
HEART: regular rate and rhythm, +S1, +S2
LUNGS : clear to auscultation bilaterally--no wheezing noted by myself
ABDOM: soft, nontender, nondistended, + bowel sounds
EXT: no cyanosis, clubbing, or edema
NEUROLOGIC: grossly intact
COPD exacerbation--no signs of PNA on CXR--cont nebs, decrease decadron to I32Q--dewj O2 as able
Dysuria with lower abdominal pain-- Urine culture pending, holding antibiotics until we receive culture results
History of paroxysmal atrial fibrillation, LBBB-- Continue Eliquis 5 Mg twice daily-- EKG showed normal sinus rhythm with left bundle branch block
Essential Hypertension- Continue amlodipine
History of CVA in 2000-- Continue Eliquis 5 Mg twice daily
GERD- Omeprazole continued
DVT proph-- Eliquis continued
CODE STATUS-- DNR
anticipate home in 1-2 days
Original Note:
Today's Communication/Plan
-
Awaiting urine culture results to decide antibiotic regimen. Continue oxygen supplementation at 2 L, neb treatment and steroids.
Assessment / Plan
Assessment / Plan
79-year-old female with a history of COPD, pulmonary embolism, atrial fibrillation on Eliquis, right breast mastectomy who presented to the ER with shortness of breath on exertion. She had associated nonproductive cough, lower abdominal cramps,
foul-smelling urine. She denies orthopnea, chest pain, fever, chills, runny nose, congestion, abdominal pain, nausea, vomiting, diarrhea. She uses 2 L of oxygen at bedtime. Oxygen saturation went to 87 to 88% on 09/12/2024 after which she came to
the ED. she was given albuterol, dexamethasone and neb treatment in the ED and admitted for COPD exacerbation. At present, requiring 2 L of oxygen supplementation.
# COPD exacerbation
- Chest x-ray was clear with mild cardiomegaly
- Continue neb treatments, steroids and oxygen supplementation at 2 L to keep oxygen level above 92%
# Dysuria with lower abdominal pain
- Urine culture pending, holding antibiotics until we receive culture results
# History of paroxysmal atrial fibrillation, LBBB
- Continue Eliquis 5 Mg twice daily
- EKG showed normal sinus rhythm with left bundle branch block
# Hypertension
- Continue amlodipine 10 Mg daily
# History of CVA in 2000
- Continue Eliquis 5 Mg twice daily
# GERD
- Omeprazole continued
DVT prophylaxis: Eliquis continued
CODE STATUS DNR
Anticipated Discharge: > 48 hours
Subjective/Interval History
-
Date of Service: September 14, 2024
79-year-old female who presented with shortness of breath on exertion. She has associated nonproductive cough, lower abdominal cramps, foul-smelling urine. Denies orthopnea, chest pain, fever, chills, runny nose, congestion, abdominal pain,
nausea, vomiting, diarrhea. She uses 2 L of oxygen at bedtime but her oxygen saturations dropped to 87 to 88% the night before arrival to the ED. admitted for COPD exacerbation, day 2 of admission. Overnight she had an episode of oxygen
desaturation where it dropped to 83% but subsequently went up. She had increased wheezing and cough this morning. She is on 2 L of oxygen currently and states she feels better.
Objective Data
-
Labs:
Labs from 09/13 showed WBC 5.1, hemoglobin 16.4. Sodium 141, potassium 4.5, chloride 104, BUN 19, creatinine 0.8, glucose 117.
UA shows 2+ occult blood, 2+ leukocyte esterase.
Vital Signs:
Vital Signs
Temp Pulse Resp BP Pulse Ox
98.7 F 81 20 130/56 95
09/14/24 15:58 09/14/24 15:58 09/14/24 15:58 09/14/24 15:58 09/14/24 15:58
I&O
09/13/24 09/14/24 09/15/24
06:59 06:59 06:59
Intake Total 1260 / 1260 1200 / 1200
Balance 1260 / 1260 1200 / 1200
Review of Systems
-
History Source: Patient
All other systems: Reviewed and negative
Constitutional: Reports No Symptoms
EENT: Reports No Symptoms Reported
Respiratory: Reports Cough, Trouble Breathing and Wheezing
Cardiac: Reports No Symptoms
Abdomen/GI: Reports Abdominal Pain
Breast: Reports No Symptoms
Genitourinary: Reports No Symptoms
Musculoskeletal: Reports No Symptoms
Skin: Reports No Symptoms
Neuro: Reports No Symptoms
Endocrine: Reports No Symptoms
Hematologic / Lymphatic: Reports No Symptoms
Allergy / Immunology: Reports No Symptoms
Physical Exam
-
General: Well Developed, No Apparent Distress and Comfortable
HEENT: Normocephalic, Atraumatic and Moist Mucous Membranes
Respiratory: Wheezes (mild expiratory wheezing over left upper lobe)
Cardiac: Regular Rhythm and S1/S2
Breast: Deferred by me
GI: Soft, Nontender, Nondistended and Normal Bowel Sounds
Rectal: Deferred by Provider
Genito-urinary: No Costovertebral Tender
Musculoskeletal: No Clubbing, No Cyanosis and No Edema
Skin: Warm and Dry
Neuro: AO x 3
Hematologic / Lymphatic: No Lymphadenopathy
Psych: Calm
Data Reviewed
-
Labs: Labs Reviewed by me and Discussed with Physician
Old Records: Reviewed
[2024-09-14 19:08] VITALS: BP 128/62
[2024-09-14] MEDS: COLACE 100 MG PO (19:57)
[2024-09-14 23:53] VITALS: BP 112/50
[2024-09-15 03:32] VITALS: BP 132/59
[2024-09-15] MEDS: DUONEB 3 ML INH ×3 (07:19→15:26)
[2024-09-15] MEDS: STRIVERDI RESPIMAT 2 PUFF INH (07:19)
[2024-09-15 08:08] VITALS: BP 133/71
[2024-09-15 08:20] LABS: ALT (SGPT) 12 U/L (0-35); AST (SGOT) 14 U/L (14-36); Albumin 3.8 g/dl (3.5-5.0); Alkaline Phosphatase 58 U/L (38-126); Blood Urea Nitrogen 30 mg/dl (7-17); Calcium 9.3 mg/dl (8.4-10.2); Carbon Dioxide 28 mmol/L (22-30); Chloride 107 mmol/L (98-107); Estimated Creatinine Clearance 56 ml/min; Glucose 93 mg/dl (70-99); Magnesium 2.2 mg/dl (1.6-2.3); Potassium 4.4 mmol/L (3.5-5.1); Sodium 138 mmol/L (135-145); Total Protein 5.9 g/dl (6.3-8.2); eGFR > 60.00
[2024-09-15] MEDS: NORVASC 10 MG PO (08:37)
[2024-09-15] MEDS: MUCINEX 600 MG PO (08:37)
[2024-09-15] MEDS: PROTONIX 40 MG PO (08:37)
[2024-09-15] MEDS: DECADRON 4 MG IV (08:37)
[2024-09-15] MEDS: ELIQUIS 5 MG PO (08:37)
[2024-09-15] MEDS: COLACE 100 MG PO (08:37)
[2024-09-15 08:45] LABS: Hematocrit 39.5 % (37.0-47.0); Hemoglobin 12.8 g/dL (12.0-16.0); Mean Corp Hgb Conc. 32.4 g/dL (33.0-37.0); Mean Corpuscular Volume 90.6 fL (81.0-99.0); Nucleated Red Blood Cells % 0 %; Platelet Count 218 10^3/uL (130-400); Red Cell Dist. Width 14.2 % (11.5-14.5)
[2024-09-15 11:42] VITALS: BP 134/63
--- NOTE | 2024-09-15 11:59 | PN.CDI ---
CDI
- -
CDI:
Physician Documentation Request
Admit Date: 09/13/24 13:46
Dear Doctor Nadia,
H&P contains a diagnosis of acute on chronic hypoxic respiratory failure secondary to COPD exacerbation
ED record states 'pt wears O2 2L at night' as does H&P
Could you please clarify the patient chronic respiratory status:
Chronic hypoxic respiratory failure - continuous home o2 use
Hypoxia intermittent home o2 use
Other
Use of terms such as suspected, likely, concern for, or probable (associated with a specific diagnosis that is being evaluated, monitored, or treated as if it exists) are acceptable and can be coded in the inpatient setting, when documented at the
time of discharge.
Thank you,
Anna Aviles RN, BSN
CDI Specialist
tiger text
Please use your independent medical judgment in providing your response.
--- NOTE | 2024-09-15 12:05 | PN.CDI ---
CDI
- -
CDI:
Physician Documentation Request
Admit Date: 09/13/24 13:46
Dear Doctor Nadia,
The diagnosis of acute on chronic hypoxic respiratory failure secondary to COPD exacerbation was included in the H&P but not in subsequent documentation.
Documented vital signs show patient on 2-3 Liters .
Respirations on presentation documented between 17-30
ED record states pt was 'c/o worsening SOB'
Pulmonary exam in ED 'Decreased throughout tachypneic with ambulation'
Please indicate in your progress notes if you are in agreement that the acute hypoxic respiratory failure is valid for this patient:
____ - Acute hypoxic respiratory failure is a valid diagnosis (Please include it in your progress notes)
____ - Acute hypoxic respiratory failure is not a valid diagnosis for this patient
____ - Other
Recognized standard criteria for respiratory failure includes:
(Source: Nathaniel S. Miller. 2019January 06. Documentation tips: Acute Respiratory Failure, The Hospitalist)
ABGs (1 or more)
�PO2 <60 or RA SpO2 <91%
�PcO2 >45 and pH <7.35
�pO2 decrease or pcO2 increase by 10 mmHg from baseline if known
- P/F ratio (pO2/FiO2) less than 300 Symptoms:
�Tachypnea, SOB, dyspnea
�Pallor or cyanosis
�Anxiety or restlessness
�Use of accessory muscles
�Retractions (grunting in newborns)
�Unable to speak in complete sentences
Use of terms such as suspected, likely, concern for, or probable are acceptable for a diagnosis that is being evaluated, monitored or treated as if it exists and can be coded in the inpatient setting, when documented at the time of discharge.
Thank you,
Anna Aviles RN, BSN
CDI Specialist
tiger text
Please use your independent medical judgment in providing your response.
[2024-09-15 12:19] LABS: Hematocrit 42.0 % (37.0-47.0); Hemoglobin 13.9 g/dL (12.0-16.0); Mean Corp Hgb Conc. 33.1 g/dL (33.0-37.0); Mean Corpuscular Volume 89.0 fL (81.0-99.0); Nucleated Red Blood Cells % 0 %; Platelet Count 247 10^3/uL (130-400); Red Cell Dist. Width 14.3 % (11.5-14.5)
[2024-09-15 12:33] LABS: ALT (SGPT) 17 U/L (0-35); AST (SGOT) 19 U/L (14-36); Albumin 4.4 g/dl (3.5-5.0); Alkaline Phosphatase 65 U/L (38-126); Blood Urea Nitrogen 26 mg/dl (7-17); Calcium 9.3 mg/dl (8.4-10.2); Carbon Dioxide 26 mmol/L (22-30); Chloride 105 mmol/L (98-107); Estimated Creatinine Clearance 50 ml/min; Glucose 104 mg/dl (70-99); Potassium 4.4 mmol/L (3.5-5.1); Sodium 138 mmol/L (135-145); Total Protein 6.6 g/dl (6.3-8.2); eGFR > 60.00
--- NOTE | 2024-09-15 13:43 | W.PN.HOSP.TC ---
Addendum entered and electronically signed by Lise Hurtado MD 09/15/24 14:57:
I saw and evaluated the patient independently. I reviewed the resident�s note and agree with findings and plan as documented by Dr. Zuniga.
GENERAL: well developed, well nourished, female in no apparent distress
HEENT: NC/AT--off O2
HEART: regular rate and rhythm, +S1, +S2
LUNGS : clear to auscultation bilaterally
ABDOM: soft, nontender, nondistended, + bowel sounds
EXT: no cyanosis, clubbing, or edema
NEUROLOGIC: grossly intact
Acute (requiring O2 during the day) on chronic (wears O2 at night) hypoxemic resp failure due to COPD exacerbation--no signs of PNA on CXR--cont nebs, decrease decadron to Q12H, change to prednisone taper at d/c--did not require home O2 as no drop
in pulse ox below 88%
Dysuria with lower abdominal pain-- Urine culture with mixed mariya
History of paroxysmal atrial fibrillation, LBBB-- Continue Eliquis 5 Mg twice daily-- EKG showed normal sinus rhythm with left bundle branch block
Essential Hypertension- Continue amlodipine
History of CVA in 2000-- Continue Eliquis 5 Mg twice daily
GERD- Omeprazole continued
DVT proph-- Eliquis continued
CODE STATUS-- DNR
OK for d/c
Original Note:
Today's Communication/Plan
-
Discharge home today after home O2 assessment results.
Assessment / Plan
Assessment / Plan
79-year-old female with a history of COPD, pulmonary embolism, atrial fibrillation on Eliquis, right breast mastectomy who presented to the ER with shortness of breath on exertion. She had associated nonproductive cough, lower abdominal cramps,
foul-smelling urine. She denies orthopnea, chest pain, fever, chills, runny nose, congestion, abdominal pain, nausea, vomiting, diarrhea. She uses 2 L of oxygen at bedtime. Oxygen saturation went to 87 to 88% on 09/12/2024 after which she came to
the ED. she was given albuterol, dexamethasone and neb treatment in the ED and admitted for COPD exacerbation. At present, using oxygen as needed. Last SpO2 was 95% on room air.
# COPD exacerbation
- Chest x-ray was clear with mild cardiomegaly
- Given patient did not require more than 2 L of O2 while being admitted, and is only using it as needed now. Stable for discharge.
- Discharge with neb treatments, steroid taper and oxygen supplementation as needed
#Abnormal labs
- CBC showed Hb 12.8 this morning. Patient had no new symptoms including blood in stool or coughing up blood. Repeated CBC, improved to 13.9 which is her baseline.
# Dysuria with lower abdominal pain
- Urine culture showed mixed mariya�probable contamination.
- Patient does not have any symptoms, no repeat or treatment needed..
# History of paroxysmal atrial fibrillation, LBBB
- Continue Eliquis 5 Mg twice daily
- EKG showed normal sinus rhythm with left bundle branch block
# Hypertension
- Continue amlodipine 10 Mg daily
# History of CVA in 2000
- Continue Eliquis 5 Mg twice daily
# GERD
- Omeprazole continued
DVT prophylaxis: Eliquis continued
CODE STATUS DNR
Anticipated Discharge: Today
Subjective/Interval History
-
Date of Service: September 15, 2024
79-year-old female with a history of COPD, pulmonary embolism, atrial fibrillation on Eliquis, right breast mastectomy who presented to the ER with shortness of breath on exertion. She had associated nonproductive cough, lower abdominal cramps,
foul-smelling urine. She denies orthopnea, chest pain, fever, chills, runny nose, congestion, abdominal pain, nausea, vomiting, diarrhea. She uses 2 L of oxygen at bedtime. Oxygen saturation went to 87 to 88% on 09/12/2024 after which she came to
the ED. She was given albuterol, dexamethasone and neb treatment in the ED and admitted for COPD exacerbation. At present, patient feels better. She only required oxygen overnight for wheezing intermittently with the last use at 6:30 AM when she
had coughing. She states she is 'bringing up more mucus than before' but feels well.
Patient called her box spring maker and was informed that she did not qualify for portable oxygen based on the last testing done in the office.
Objective Data
-
Labs:
Laboratory Results
09/15/24 09/15/24
07:01 11:55
WBC 7.5 9.6
Hgb 12.8 D 13.9
Hct 39.5 42.0
Plt Count 218 247
Sodium 138 138
Potassium 4.4 4.4
Chloride 107 105
Carbon Dioxide 28 26
BUN 30 H 26 H
Creatinine 0.8 0.9
Glucose 93 104 H
Calcium 9.3 9.3
Total Bilirubin 0.4 0.4
AST 14 19
ALT 12 17
Alkaline Phosphatase 58 65
Vital Signs:
Vital Signs
Temp Pulse Resp BP Pulse Ox
98.1 F 68 18 134/63 98
09/15/24 11:42 09/15/24 11:42 09/15/24 11:42 09/15/24 11:42 09/15/24 11:42
I&O
09/14/24 09/15/24 09/16/24
06:59 06:59 06:59
Intake Total 1260 / 1260 1680 / 1680 480 / 480
Balance 1260 / 1260 1680 / 1680 480 / 480
Review of Systems
-
History Source: Patient
All other systems: Reviewed and negative
Constitutional: Reports No Symptoms
EENT: Reports No Symptoms Reported
Respiratory: Reports Cough and Wheezing
Cardiac: Reports No Symptoms
Abdomen/GI: Reports No Symptoms
Breast: Reports No Symptoms
Genitourinary: Reports No Symptoms
Musculoskeletal: Reports No Symptoms
Skin: Reports No Symptoms
Neuro: Reports No Symptoms
Endocrine: Reports No Symptoms
Hematologic / Lymphatic: Reports No Symptoms
Allergy / Immunology: Reports No Symptoms
Physical Exam
-
General: Well Developed, No Apparent Distress and Comfortable
HEENT: Normocephalic, Atraumatic, Moist Mucous Membranes, Nose Appears Normal and Ears Appear Normal
Respiratory: Clear to Auscultation (after neb treatment)
Cardiac: Regular Rhythm and S1/S2
Breast: Deferred by me
GI: Soft, Nontender, Nondistended and Normal Bowel Sounds
Rectal: Deferred by Provider
Genito-urinary: No Costovertebral Tender
Musculoskeletal: No Clubbing, No Cyanosis and No Edema
Skin: Warm and Dry
Neuro: AO x 3
Hematologic / Lymphatic: No Lymphadenopathy
Psych: Calm
Data Reviewed
-
Labs: Labs Reviewed by me and Discussed with Physician
Old Records: Reviewed
--- NOTE | 2024-09-15 14:00 | W.DCSUMMARY ---
Addendum entered and electronically signed by Lise Hurtado MD 09/16/24 07:49:
Read, reviewed, and agree. See same day progress note for additional details. Time spent coordinating care, DC planning, review of DC plan of care with resident, transition of care, review of records in EMR, med rec, consults, notes, d/w
consultants, nursing, family, and CM = 32 minutes
Original Note:
Discharge Summary
Discharge Data
Date of Admission: 09/13/24
Date of Discharge: 09/15/24
-
Pending Results: No
Hospital Course
79-year-old female with a past medical history of COPD, pulmonary embolism, atrial fibrillation on Eliquis, right breast mastectomy who presented to the ER with shortness of breath on exertion. She has had associated nonproductive cough, lower
abdominal cramps, foul-smelling urine. Patient denies orthopnea, chest pain, fever, chills, runny nose, congestion, abdominal pain, nausea, vomiting, diarrhea. She uses 2 L of oxygen at baseline at bedtime. Patient's oxygen saturation dropped to
87% on 09/12/2024 after which she came to the ED. Patient was given albuterol, dexamethasone and neb treatment and admitted for COPD exacerbation diagnosis.
Chest x-ray was clear with mild cardiomegaly. During the hospital stay, we continued neb treatment steroids and oxygen supplementation up to 2 L to keep oxygen level above 92%. She was slowly weaned off and only used oxygen as needed. Urine
culture showed mixed mariya which was likely due to contamination. Since patient did not endorse worsening dysuria and lower abdominal pain, repeat cultures were not sent. CBC this morning showed a hemoglobin of 12.8 which was significantly
decreased from 16 from 09/13/2024. Repeat labs showed Hb 13.9 which is her baseline. Patient stable for discharge clinically.
Patient is going on a trip soon and requested portable O2. Informed patient that her animal care worker can help with that. Patient called pulmonology but was informed that she did not qualify for it based on prior testing at the clinic. She will not
be able to perform another qualifying test prior to her trip , so we did a home O2 assessment . Patient did not need increase of oxygen supplementation after home O2 assessment was performed patient's oxygen saturation was 91 upon ambulating 800
feet indicating that that she does not qualify for portable O2. We will continue Eliquis 5 Mg twice daily, amlodipine, omeprazole. She was stable for discharge today with a prednisone taper.
Discharge Plan
-
Patient Disposition: Home (Routine Discharge)
Discharge Diagnosis/Procedures: COPD exacerbation
Condition: Good
Diet: No restrictions
Activity: No restrictions
Driving Restrictions: As prior to admission
Bathing Restrictions: None
Activity Restrictions/Additional Instructions:
Avoid passive smoking.
Referrals:
Yeni Jaimes CRNP [Family Provider, General] - in less than 1 week
Prescriptions:
New
prednisone 10 mg Tablet
See Rx Instructions .ROUTE .COMPLEX Qty: 45 0RF
Rx Instructions:
Take By Mouth:
50 mg daily x3 days, 40 mg daily x3 days,
30 mg daily x3 days, 20 mg daily x3 days,
10 mg daily x3 days
Continued
amlodipine 10 mg Tablet
10 mg PO DAILY
Emergen-C 500 mg Tablet,Chewable
1 tab PO DAILY
Stiolto Respimat 2.5-2.5 mcg/actuation Mist
2 puff INHALATION R DAILY
Eliquis 5 mg Tablet
5 mg PO BID
psyllium Packet
1 packet PO DAILY PRN (Reason: CONSTIPATION)
omeprazole 20 mg capsule,delayed release(DR/EC)
20 mg PO DAILY
Discharge Orders:
Discharge Patient (As Directed); Ordered 09/15/24
Ordered By: Malia Jorge
Discharge Date and Time
Discharge Date/Time: 09/15/24 17:39
Print Language: URUGUAYAN
--- NOTE | 2024-09-15 14:59 | W.PN.UPDATE ---
Update Note
Progress Note Update
After home O2 assessment was performed, patient's oxygen saturation was 91% upon ambulating 800 feet indicating she does not qualify for portable O2.
[2024-09-15 15:38] VITALS: BP 126/60
== END 2024-09-15 17:39 | disposition home or self-care (01) | DRG 190 ==
LOC: 4 EAST ACU 13:46
PROVIDERS: Nurse Practitioner; ADMITTING PHYSICIAN Hospitalist; ATTENDING PHYSICIAN Internal Medicine; EMERGENCY PHYSICIAN Emergency Medicine; FAMILY PHYSICIAN Nurse Practitioner Adult Health
DX: J44.1 Chronic obstructive pulmonary disease with (acute) exacerbation (principal); J96.21 Acute and chronic respiratory failure with hypoxia; Z86.711 Personal history of pulmonary embolism; I48.0 Paroxysmal atrial fibrillation; Z90.11 Acquired absence of right breast and nipple; Z87.891 Personal history of nicotine dependence; Z88.1 Allergy status to other antibiotic agents; Z88.0 Allergy status to penicillin; Z88.3 Allergy status to other anti-infective agents; Z79.01 Long term (current) use of anticoagulants; K59.00 Constipation, unspecified; I44.7 Left bundle-branch block, unspecified; I10 Essential (primary) hypertension; K21.9 Gastro-esophageal reflux disease without esophagitis; Z66 Do not resuscitate; Z86.73 Personal history of transient ischemic attack (TIA), and cerebral infarction without residual deficits; Z85.3 Personal history of malignant neoplasm of breast; Z85.828 Personal history of other malignant neoplasm of skin; E03.9 Hypothyroidism, unspecified; E78.5 Hyperlipidemia, unspecified; F32.A Depression, unspecified; F41.9 Anxiety disorder, unspecified
CPT/HCPCS: 71046; 80053; 81003; 81015; 83735; 85025; 87086; 93005; 94640; 99285

== ENCOUNTER → 2024-10-06 10:39 | Outpatient (REF) | payer OTHER, SELFPAY | LOC: HWCARD 10:39 | PROVIDERS: ATTENDING PHYSICIAN Nurse Practitioner Adult Health | DX: I10 Essential (primary) hypertension (principal); I48.0 Paroxysmal atrial fibrillation | CPT/HCPCS: 93005 ==

== ENCOUNTER → 2024-10-13 09:19 | Outpatient (REF) | payer OTHER, SELFPAY ==
[2024-10-13 13:02] LABS: HDL Cholesterol 63 mg/dl; LDL Cholesterol, Calculated 119 mg/dl; Very Low Density Lipoprotein 29 mg/dl (0-30)
[2024-10-13 14:06] LABS: Glycohemoglobin (HgbA1c) 5.9 % (4.0-5.6)
== END ==
LOC: HWLAB 09:19
PROVIDERS: ATTENDING PHYSICIAN Nurse Practitioner Adult Health
DX: Z00.01 Encounter for general adult medical examination with abnormal findings (principal); Z87.898 Personal history of other specified conditions
CPT/HCPCS: 36415; 80061; 83036; 84439; 84443

== ENCOUNTER → 2024-10-14 11:25 | Outpatient (REF) | payer OTHER, SELFPAY | LOC: RAD 11:25 | PROVIDERS: ATTENDING PHYSICIAN Internal Medicine Hematology & Oncology; FAMILY PHYSICIAN Nurse Practitioner Adult Health | DX: C25.2 Malignant neoplasm of tail of pancreas (principal); C50.211 Malignant neoplasm of upper-inner quadrant of right female breast; Z78.0 Asymptomatic menopausal state | CPT/HCPCS: 74178; Q9967 ==

== ENCOUNTER → 2024-10-28 09:43 | Outpatient (REF) | payer OTHER, SELFPAY | LOC: HWRAD 09:43 | PROVIDERS: ATTENDING PHYSICIAN Internal Medicine Hematology & Oncology; FAMILY PHYSICIAN Nurse Practitioner Adult Health | DX: K82.8 Other specified diseases of gallbladder (principal); R93.5 Abnormal findings on diagnostic imaging of other abdominal regions, including retroperitoneum; C25.2 Malignant neoplasm of tail of pancreas; Z78.0 Asymptomatic menopausal state | CPT/HCPCS: 76700 ==

== ENCOUNTER 2024-11-05 15:05 | Inpatient (IN) | payer OTHER, SELFPAY ==
[2024-11-05] VITALS (11 sets, daily range): BP systolic 101–169; BP diastolic 62–90; BMI 23.8
--- NOTE | 2024-11-05 09:11 | ED.GENMED ---
History of Present Illness
<Talita Gilliam PA-C - Last Filed: 11/05/24 10:55>
General
Chief Complaint: Breathing Problem
Source: patient and records
Exam Limitations: none
Time Seen by Provider: 11/05/24 09:06
History of Present Illness
History of Present Illness:
79yoF with a history of COPD on nighttime oxygen as needed, atrial fibrillation on Eliquis, prior CVA, breast cancer, and hypertension presenting via EMS for evaluation of shortness of breath. Patient woke up with a 'head cold' yesterday morning.
She took Mucinex and was feeling better. Overnight, her symptoms started to worsen and she started to experience dyspnea and wheezing. She had to use 3 neb treatments throughout the night and was given another neb treatment by EMS. She reports
some chest heaviness which is different than her typical COPD flares. She denies any fevers. Of note, patient's has been sick for the past 2 days. Patient was last hospitalized in August 2024 for a COPD exacerbation.
Past History
<Talita Gilliam PA-C - Last Filed: 11/05/24 10:55>
Past History
ED Past Medical History: Arrthythmia (afib), COPD, HTN and Other (New diagnosis right lobular breast CA)
Social History
Tobacco: Former smoker
Alcohol: None
Drug: None
Phy Exam
<Talita Gilliam PA-C - Last Filed: 11/05/24 10:55>
General Physical Exam
General Presentation: well appearing and mild distress
General Skin: warm and dry
General Habitus: elderly
General Mental: alert
ENT Exam
ENT Exam: normocephalic and other (+Nasal congestion)
Cardiovascular Exam
Cardiovascular Exam: regular rate/rhythm, no edema and normal peripheral pulses (2+ DP pulses bilaterally)
Pulmonary Exam
Pulmonary Exam: no stridor and other (Generalized inspiratory and expiratory wheezes. Tachypnea noted with increased work of breathing. Oxygen saturation 93% on room air. )
Neurological Exam
Neurological Exam: alert
[place] Coma Scale
Eye Opening: Spontaneous
Verbal Response: Oriented
Motor Response: Obeys Commands
GCS Total Score: 15
Skin Exam
Skin Exam: normal color and warm/dry
Psychiatric Exam
Psychiatric Exam: normal mood/affect
<Ruben Ackerman DO - Last Filed: 11/05/24 10:33>
[place] Coma Scale
GCS Total Score: 15
Scores
<Talita Gilliam PA-C - Last Filed: 11/05/24 10:55>
Heart Failure Risk
Heart Failure Risk Score: Not Applicable
Sepsis
<Talita Gilliam PA-C - Last Filed: 11/05/24 10:55>
Sepsis Screening
Sepsis Assessment: Sepsis Ruled Out
Sepsis Screen
Sepsis Screen: Sepsis Ruled Out
Date: 11/05/24
Time: 10:54
Course
<Talita Gilliam PA-C - Last Filed: 11/05/24 10:55>
Orders/Labs/Results
Orders:
Orders
11/05/24 09:07
ECG [Electrocardiogram (*1)] Urgent
Reason for Study: Shortness of Breath
EKG- Treatment ONCE
11/05/24 09:11
Cardiac Monitoring- Treatment ONCE
Albuterol Sulfate [Ventolin Nebules] 10 mg INH R NOW STA
Dexamethasone Sod Phosphate [Decadron] 10 mg IV NOW STA
Ipratropium Nebs [Atrovent Nebules] 1 mg INH R NOW STA
11/05/24 09:27
COVID-19 Antigen Urgent
Source: Nasal Swab
Complete Blood Count/With Diff Urgent
Comprehensive Metabolic Panel Urgent
Troponin I Urgent
Influenza A+B Rapid Molecular Urgent
ELISABETH Source: Nasal Swab
Specimen Description:
11/05/24 09:38
CR Chest Portable - 1 View Urgent
Comment:
Reason For Exam: SOB
Reason Study Needs to be Portable: Unable to Transport
Abnormal Lab Results
11/05/24
09:27
Hct 47.2 H %
(37.0-47.0)
MCHC 32.6 L g/dL
(33.0-37.0)
Absolute Lymphs (auto) 0.9 L 10^3/uL
(1.2-3.4)
Absolute Monos (auto) 0.9 H 10^3/uL
(0.1-0.6)
Lymphocytes % 12.5 L %
(20.5-51.1)
Monocytes % 11.7 H %
(1.7-9.3)
Carbon Dioxide 31 H mmol/L
(22-30)
Glucose 135 H mg/dl
(70-99)
11/05/24 09:27
11/05/24 09:27
Vital Signs
Initial and Last Documented VS:
Initial Vital Signs
Pulse Resp Pulse Ox
93 20 93
11/05/24 09:08 11/05/24 09:08 11/05/24 09:08
Last Documented Vital Signs
Temp Pulse Resp BP Pulse Ox
98 F 91 20 104/62 91
11/05/24 09:11 11/05/24 10:15 11/05/24 10:15 11/05/24 10:00 11/05/24 10:15
Nellylt;Ruben Ackerman, DO - Last Filed: 11/05/24 10:33>
Orders/Labs/Results
Orders:
Orders
11/05/24 09:07
ECG [Electrocardiogram (*1)] Urgent
Reason for Study: Shortness of Breath
EKG- Treatment ONCE
11/05/24 09:11
Cardiac Monitoring- Treatment ONCE
Albuterol Sulfate [Ventolin Nebules] 10 mg INH R NOW STA
Dexamethasone Sod Phosphate [Decadron] 10 mg IV NOW STA
Ipratropium Nebs [Atrovent Nebules] 1 mg INH R NOW STA
11/05/24 09:27
COVID-19 Antigen Urgent
Source: Nasal Swab
Complete Blood Count/With Diff Urgent
Comprehensive Metabolic Panel Urgent
Troponin I Urgent
Influenza A+B Rapid Molecular Urgent
ELISABETH Source: Nasal Swab
Specimen Description:
11/05/24 09:38
CR Chest Portable - 1 View Urgent
Comment:
Reason For Exam: SOB
Reason Study Needs to be Portable: Unable to Transport
Abnormal Lab Results
11/05/24
09:27
Hct 47.2 H %
(37.0-47.0)
MCHC 32.6 L g/dL
(33.0-37.0)
Absolute Lymphs (auto) 0.9 L 10^3/uL
(1.2-3.4)
Absolute Monos (auto) 0.9 H 10^3/uL
(0.1-0.6)
Lymphocytes % 12.5 L %
(20.5-51.1)
Monocytes % 11.7 H %
(1.7-9.3)
Carbon Dioxide 31 H mmol/L
(22-30)
Glucose 135 H mg/dl
(70-99)
11/05/24 09:27
11/05/24 09:27
Vital Signs
Initial and Last Documented VS:
Initial Vital Signs
Pulse Resp Pulse Ox
93 20 93
11/05/24 09:08 11/05/24 09:08 11/05/24 09:08
Last Documented Vital Signs
Temp Pulse Resp BP Pulse Ox
98 F 91 20 104/62 91
11/05/24 09:11 11/05/24 10:15 11/05/24 10:15 11/05/24 10:00 11/05/24 10:15
<Talita Gilliam PA-C - Last Filed: 11/05/24 10:55>
MDM/Problems Addressed
Differential Diagnosis Includes:
79yoF here with SOB. Hx of COPD on oxygen QHS. Started with URI symptoms yesterday. Had to use multiple neb treatments overnight. She is in mild respiratory distress on arrival with tachypnea and generalized wheezing. Oxygen saturation 93% on room
air. Differential diagnosis includes but is not limited to: COPD exacerbation, URI, bronchitis, pneumonia, consider ACS
Initial ED plan: Check cardiac labs, EKG, COVID/flu swab, and CXR. Will give hour long neb treatment and reassess.
<Talita Gilliam PA-C - Last Filed: 11/05/24 10:55>
*Pulse Oximetry
SaO2: 93
Oxygen Mode of Delivery: Room air
Patient hypoxic: no
*EKG
Interpreted by ED Provider?: Yes
EKG Intrepretation Date: 11/05/24
Heart Rate: 96
Rate: normal
Rhythm: sinus
Keeler: normal axis
QRS Pattern: left bundle branch block (unchanged from prior EKG on 10/06/24)
Ischemia: non-specific ST changes
*Critical Care Note
Total Time (30-74mins, 75-104mins- exclusive of procedures): Not Applicable
<Talita Gilliam PA-C - Last Filed: 11/05/24 10:55>
Update Note
Update Note:
Labs overall unremarkable including normal white count. EKG shows NSR with a LBBB which is consistent with prior EKGs and troponin normal. Viral testing negative. Chest x-ray clear without infiltrates. Patient with persistent wheezing and
increased work of breathing after hour-long neb treatment. Will admit for further management.
ED Attending Note
<Talita Gilliam PA-C - Last Filed: 11/05/24 10:55>
-
Portions of this chart may have been created with voice recognition software.� Occasional wrong word or��sound alike� substitutions may have occurred due to the inherent limitations of voice recognition software.
<Ruben Ackerman DO - Last Filed: 11/05/24 10:33>
ED Attending Note
Patient seen and examined by attending physician: Yes
I performed the substantive portion of visit, reviewed & personally made and approve the management plan that is documented in note by myself or VALENTÍN.: Yes
ED Attending Note:
Seen with VALENTÍN examined independently COPD oxygen at night not on chronic steroids cough shortness of breath wheezing low sats, plan with nebs steroids chest x-ray likely admission
Discharge Plan
Departure
Patient Disposition: Admit
Date of Disposition: 11/05/24
Time of Disposition: 10:54
Presentation/result/management discussed w/ accepting MD/DO: Hospitalist
Discharge Problem:
COPD exacerbation
Prescriptions:
No Action
amlodipine 10 mg Tablet
10 mg PO DAILY
Emergen-C 500 mg Tablet,Chewable
1 tab PO DAILY
Stiolto Respimat 2.5-2.5 mcg/actuation Mist
2 puff INHALATION R DAILY
Eliquis 5 mg Tablet
5 mg PO BID
psyllium Packet
1 packet PO DAILY PRN (Reason: CONSTIPATION)
omeprazole 20 mg capsule,delayed release(DR/EC)
20 mg PO DAILY
prednisone 10 mg Tablet
See Rx Instructions .ROUTE .COMPLEX Qty: 45 0RF
Rx Instructions:
Take By Mouth:
50 mg daily x3 days, 40 mg daily x3 days,
30 mg daily x3 days, 20 mg daily x3 days,
10 mg daily x3 days
Referrals:
Yeni Jaimes CRNP [Family Provider, General]
Interventions
Interventions:
*Risk Screen - Suicide Last Done: 11/05/24 10:17
*General Assessment Last Done: 11/05/24 10:17
*Neglect/Abuse Screening Last Done: 11/05/24 10:17
ED- Cardiac Assessment Last Done: 11/05/24 09:27
ED- Pulmonary Assessment Last Done: 11/05/24 09:27
Discharge Date and Time
Print Language: MOSOTHO
[2024-11-05] MEDS: VENTOLIN NEBULES 10 MG INH ×2 (09:31→13:16)
[2024-11-05] MEDS: DECADRON 10 MG IV (09:31)
[2024-11-05] MEDS: ATROVENT NEBULES 1 MG INH ×2 (09:34→13:16)
[2024-11-05 09:53] LABS: Hematocrit 47.2 % (37.0-47.0); Hemoglobin 15.4 g/dL (12.0-16.0); Mean Corp Hgb Conc. 32.6 g/dL (33.0-37.0); Mean Corpuscular Volume 90.9 fL (81.0-99.0); Nucleated Red Blood Cells % 0 %; Platelet Count 190 10^3/uL (130-400); Red Cell Dist. Width 13.6 % (11.5-14.5)
[2024-11-05 10:02] LABS: ALT (SGPT) < 10 U/L (0-35); AST (SGOT) 15 U/L (14-36); Albumin 4.2 g/dl (3.5-5.0); Alkaline Phosphatase 78 U/L (38-126); Blood Urea Nitrogen 13 mg/dl (7-17); Calcium 9.2 mg/dl (8.4-10.2); Carbon Dioxide 31 mmol/L (22-30); Chloride 106 mmol/L (98-107); Glucose 135 mg/dl (70-99); Potassium 4.6 mmol/L (3.5-5.1); Sodium 140 mmol/L (135-145); Total Protein 6.6 g/dl (6.3-8.2); eGFR > 60.00
[2024-11-05 10:04] LABS: COVID-19 Antigen Negative (Negative)
[2024-11-05 10:14] LABS: Troponin I < 0.012 ng/ml
--- NOTE | 2024-11-05 14:20 | HPS.HSE ---
Addendum entered and electronically signed by Bea Martínez MD 11/05/24 15:43:
This is an addendum to H&P written by Saskia Pagan on 11/05/2024. �Patient seen and examined independently with resident.
79-year-old female past medical history of chronic hypoxemic respiratory failure on 2 L at night PRN, COPD, paroxysmal atrial fibrillation on Eliquis, left bundle branch block, hypertension, CVA, GERD, breast cancer, presenting with shortness of
breath and wheezing.� 3 days ago she had a head cold, sore throat and took Mucinex. �Has chest heaviness. �No fever. �Her sick for past 2 days.
Vital signs unremarkable apart from hypoxemia down to 89% requiring 2 L oxygen.
Labs unremarkable.
Chest x-ray shows no acute cardiopulmonary process. �COVID and flu negative
Patient with acute COPD exacerbation likely from viral URI. �DuoNebs 6 hours, dexamethasone.
Original Note:
Family Physician
-
Family Physician: Yeni Jaimes
Chief Complaint
-
URI symptoms, shortness of breath
History of Present Illness
79 year old female with history of COPD on 2L O2 prn HS, paroxysmal afib on Eliquis, right breast cancer (s/p mastectomy and completed radiation), TIA (1999), HTN, hypercholesterolemia, who presents with worsening shortness of breath. She was in her
usual state of health until 3 days ago when she had a sore throat. Yesterday, she developed nasal congestion, rhinorrhea (pale-clear mucus), cough with trace clear sputum, and took mucinex. Overnight she developed worsening dyspnea necessitating use
of her nebulizer treatment multiple times throughout yesterday and at night. She was also given another treatment by EMS.
Her who lives in the same home also has URI symptoms, and they reside in a senior community, where multiple other residents have URI symptoms at this time. Sore throat is not resolved, and she denies chest pain, fever, nausea/vomiting,
abdominal pain, diarrhea/constipation, urinary complaints.
Medical History
Past Medical History
Past Medical History: Reports Arrhythmia (afib on Eliquis), COPD (on 2L O2 NC HS prn), HTN, Hypercholesterolemia and Other (TIA in 1999, right breast cancer, pulmonary nodules, basal cell carcinoma)
Past Surgical History: Reports Other (R mastectomy, lipoma removal, basal cell removal, bilateral cataract surgery, mole removal)
Social History
Tobacco: Former Smoker (Quit Jan 2024)
Alcohol: None
Drug: None
Personal:
Living: With Family
Family History
Family History: Not pertinent
Allergies / Home Medications
Allergies reflects when Allergies were last updated in [facility].
Home Medications with original date entered in [facility]
Allergy/Medication List:
Allergies
Allergy/AdvReac Type Severity Reaction Status Date / Time
doxycycline Allergy Swelling Verified 11/05/24 09:10
hydrochlorothiazide Allergy Unknown Verified 11/05/24 09:10
Macrolide Antibiotics Allergy Hives Verified 11/05/24 09:10
nitrofurantoin Allergy swelling, Verified 11/05/24 09:10
racing
heart
Penicillins Allergy hives - Verified 11/05/24 09:10
tolerates
ceftriaxone
pentazocine (From Talwin) Allergy Anaphylaxis Verified 11/05/24 09:10
pravastatin Allergy Unknown Verified 11/05/24 09:10
pseudoephedrine (From Allergy Hives Verified 11/05/24 09:10
Sudafed)
rivaroxaban (From Xarelto) Allergy racing Verified 11/05/24 09:10
heart
telithromycin Allergy Hives Verified 11/05/24 09:10
Home Medications
amlodipine 10 mg tablet 10 mg PO DAILY Blood Pressure 09/06/22
vitamin C 500 mg-multivitamin with minerals chewable tablet (Emergen-C) 1 tab PO DAILY Supplement 08/19/23
tiotropium 2.5 mcg-olodaterol 2.5 mcg/actuation mist for inhalation (Stiolto Respimat) 2 puff inhalation R DAILY Lung/Breathing Issues 09/25/23
apixaban 5 mg tablet (Eliquis) 5 mg PO BID Blood Clot Prevention/Tx 02/01/24
ipratropium 0.5 mg-albuterol 3 mg (2.5 mg base)/3 mL nebulization soln 3 ml inhalation R Q6HPRN PRN sob 11/05/24
Review of Systems
-
History Source: Patient
Constitutional: Denies Fever
EENT: Denies Sore Throat
Respiratory: Reports Cough and Trouble Breathing
Cardiac: Denies Chest Pain
Abdomen/GI: Denies Abdominal Pain, Nausea, Vomiting, Diarrhea or Constipated
: Denies Dysuria, Difficulty Voiding or Bleeding
Physical Exam
Vital Signs
Vital Signs
Temp Pulse Resp BP Pulse Ox
98 F 94 30 123/78 93
11/05/24 09:11 11/05/24 13:45 11/05/24 13:45 11/05/24 13:00 11/05/24 13:15
Physical Exam
General: Respiratory Distress
HEENT: NormoCephalic, Anicteric and Moist mucous membranes
Respiratory: Wheezes (scattered expiratory ) and Other (respiratory distress with prolonged speech); No Rales, Rhonchi or Crackles
Cardiac: S1/S2 and Regular Rhythm; No Murmur, Rub, Gallop, Peripheral Edema, Calf Tenderness or Baylee's Sign
GI: Soft, Non Tender, Non Distended and Normal Bowel Sounds
Musculoskeletal: No Clubbing, No Cyanosis and No Edema
Skin: Warm and Dry
Neuro: Awake, Alert and Oriented
Psych: Calm
Laboratory Results
-
11/05/24 09:27
11/05/24 09:27
Laboratory Results
Total Bilirubin 0.3 mg/dl (0.2-1.3) 11/05/24 09:27
AST 15 U/L (14-36) 11/05/24 09:27
ALT < 10 U/L (0-35) 11/05/24 09:27
Alkaline Phosphatase 78 U/L (38-126) 11/05/24 09:27
Troponin I < 0.012 ng/ml 11/05/24 09:27
Impression/Plan
-
IMPRESSION:
79 year old female with history of COPD on 2L O2 prn HS, paroxysmal afib on Eliquis, right breast cancer (s/p mastectomy and completed radiation), TIA (1999), HTN, hypercholesterolemia, who presents with COPD exacerbation.
PLAN:
COPD exacebation:
Secondary to viral URI. Remains afebrile
- Admit to telemetry
- Covid/flu negative
- CXR with no acute cardiopulmonary process
- Trop normal
- Was initially on 4L O2 NC, weaning down. Now on 2L. Wean as able (pt is on home O2 2L NC as needed at bedtime)
- Received Dexamethasone IV 10mg in ED. Start 4mg IV dex BId from tomorrow. Can give taper upon DC
- Appears to be responding well to steroid and nebs. Pt has allergy to macrolide and Doxy.
- Hold Stiolto. Continue standing Duonebs
Paroxysmal A-fib:
- EKG with SR and known LBBB
- Questionable brief run on Afib on monitor, rectified shortly
- Telemetry
- Continue Eliquis
Chronic conditions:
Remote hx of TIA
Hx of right breast cancer: Status post r mastectomy and completed radiation. No chemotherapy
Hypertension: continue Amlodipine
hypercholesterolemia: cholesterol lowering diet
Diet: Cholesterol lowering
DVT ppx: On Eliquis
Code status: DNR
--- NOTE | 2024-11-05 16:00 | CM ---
CM reviewed chart and met with pt bedside in ED. [facility] in [address] [facility] Has [facility] access.
Independent in ADLs, personal care and ambulation at baseline. Uses O2 2L NC PRN at night, from [employer]. Also has nebulizer.
Confirms prescription coverage.
No hx VN or SNF.
PCP: Yeni Jaimes
Pharmacy: [facility]
CM will continue to follow for any discharge planning needs.
--- NOTE | 2024-11-05 16:41 | PTCARENOTE ---
Patient arrived to until around 1600 this shift. She was able to walk from stretcher to bed in room without any assistance. She reports no pain. She is on room air. Oriented to room and staff. all needs met at this time. Plan of care ongoing.
--- NOTE | 2024-11-05 16:45 | PTCARENOTE ---
Rn call center coordinator-Patient's admission assessment completed via phone interview.
[2024-11-05] MEDS: DUONEB INH (17:02)
--- NOTE | 2024-11-05 18:06 | PTCARENOTE ---
Addendum entered by Lashell Landa RN 11/05/24 18:10:
Upon reassessment, patient's blood pressure is 108/72, HR 95. Will continue to monitor.
Original Note:
Patient reports not taking her Amlodipine this AM. BP upon admission is 169/87. MD notified. No new orders at this time. Plan of care ongoing.
[2024-11-05] MEDS: DUONEB 3 ML INH ×2 (18:24→21:07)
[2024-11-05] MEDS: ELIQUIS 5 MG PO (20:30)
[2024-11-05] MEDS: ROBITUSSIN 100 MG PO (20:30)
[2024-11-06] VITALS (8 sets, daily range): BP systolic 115–145; BP diastolic 55–78; PULSE 84–85; O2SAT 95; BMI 23.6
[2024-11-06] MEDS: ROBITUSSIN 100 MG PO (01:25)
[2024-11-06] MEDS: MELATONIN 3 MG PO (01:38)
[2024-11-06] MEDS: DUONEB 3 ML INH ×4 (07:44→19:46)
[2024-11-06] MEDS: NORVASC 10 MG PO (08:04)
[2024-11-06] MEDS: ELIQUIS 5 MG PO ×2 (08:04→20:17)
[2024-11-06 09:09] LABS: Blood Urea Nitrogen 24 mg/dl (7-17); Calcium 9.7 mg/dl (8.4-10.2); Carbon Dioxide 30 mmol/L (22-30); Chloride 104 mmol/L (98-107); Estimated Creatinine Clearance 56 ml/min; Glucose 99 mg/dl (70-99); Potassium 4.4 mmol/L (3.5-5.1); Sodium 140 mmol/L (135-145); eGFR > 60.00
--- NOTE | 2024-11-06 09:50 | W.PN.HOSP.TC ---
Today's Communication/Plan
-
likely home on Friday if she feels better
Assessment / Plan
Assessment / Plan
Physical Exam
General: Respiratory Distress
HEENT: NormoCephalic, Anicteric and Moist mucous membranes
Respiratory: Wheezes (scattered expiratory ) and Other (respiratory distress with prolonged speech); No Rales, Rhonchi or Crackles
Cardiac: S1/S2 and Regular Rhythm; No Murmur, Rub, Gallop, Peripheral Edema, Calf Tenderness or Baylee's Sign
GI: Soft, Non Tender, Non Distended and Normal Bowel Sounds
Musculoskeletal: No Clubbing, No Cyanosis and No Edema
Skin: Warm and Dry
Neuro: Awake, Alert and Oriented
Psych: Calm
79 year old female with history of COPD on 2L O2 prn HS, paroxysmal afib on Eliquis, right breast cancer (s/p mastectomy and completed radiation), TIA (1999), HTN, hypercholesterolemia, who presents with COPD exacerbation.
PLAN:
# Acute COPD exacerbation:
Secondary to viral URI. Started as common cold symptoms
Remains afebrile
Negative Flu/ COVID
CXR: No acute cardiopulmonary process.
reported phlegm with yellow color
Start on antibiotic, d/w pulmonary, c/w Zithromax ( she tolerated it before)
Add Cough medicine with Mucinex, PRN Tessalon
Change to IV Solu-Medrol 40 mg BID
c/w Nebulizer treatment
Appreciate pulmonary help
Paroxysmal A-fib:
- EKG with SR and known LBBB
Not on rate control,
- Telemetry
- Continue Eliquis
Chronic conditions:
Remote hx of TIA
Hx of right breast cancer: Status post r mastectomy and completed radiation. No chemotherapy
Hypertension: continue Amlodipine
hypercholesterolemia: cholesterol lowering diet
Diet: Cholesterol lowering
DVT ppx: On Eliquis
Code status: DNR
Total time spent to see the patient, examine the patient, review data and lab results, discuss treatment plan with patient, nursing staff around 55 minutes
Anticipated Discharge: Within 24 hours
Subjective/Interval History
-
Date of Service: November 06, 2024
Objective Data
-
Labs:
Laboratory Results
11/06/24
07:33
Sodium 140
Potassium 4.4
Chloride 104
Carbon Dioxide 30
BUN 24 H
Creatinine 0.8
Glucose 99
Calcium 9.7
Vital Signs:
Vital Signs
Temp Pulse Resp BP Pulse Ox
98.4 F 99 16 145/77 91
11/06/24 07:30 11/06/24 07:48 11/06/24 07:48 11/06/24 08:04 11/06/24 07:48
I&O
11/05/24 11/06/24 11/07/24
06:59 06:59 06:59
Intake Total 480 / 480
Balance 480 / 480
[2024-11-06] MEDS: SOLU-MEDROL PF 40 MG IV ×2 (09:56→20:18)
[2024-11-06] MEDS: TESSALON PERLES 200 MG PO ×2 (09:57→20:18)
[2024-11-06] MEDS: ZITHROMAX 500 MG PO (10:02)
[2024-11-06] MEDS: MUCINEX 600 MG PO ×2 (10:02→20:14)
[2024-11-06] MEDS: STERILE WATER FOR INJECTION 10 ML IV (10:03)
[2024-11-06] MEDS: ROCEPHIN 1000 MG IV (10:04)
[2024-11-06] MEDS: FLUSH (NSS) 2 FLUSH IV (10:04)
--- NOTE | 2024-11-06 10:12 | CON.PUL ---
Consultation
Consultation Request
Date/Time Consultation Requested: 11/06/2024
Date/Time Consultation Performed: 11/06/2024
Medical History
-
Chief Complaint: Shortness of breath
History of Present Illness:
Patient is a 79-year-old female with known history of severe COPD, chronically home oxygen dependent particularly at nighttime. She has had multiple exacerbations in the past. She presents to hospital with worsening cough shortness of breath after
developing sore throat. She also developed some URI symptoms including nasal congestion clear rhinorrhea. She had some clear sputum production without any purulence noted. No reported hemoptysis. In view of worsening shortness of breath and no
relief with her nebulizer treatments multiple times she decided to seek further help. In the emergency room, patient was noted to have bilateral wheezing and was admitted to the hospital with concern for COPD exacerbation. Pulmonary consultation
was requested for further input.
Past Medical History
Past Medical History: Reports Arrhythmia (afib on Eliquis), COPD (on 2L O2 [place] HS prn), HTN, Hypercholesterolemia and Other (TIA in 1999, right breast cancer, pulmonary nodules, basal cell carcinoma)
Past Surgical History: Reports Other (R mastectomy, lipoma removal, basal cell removal, bilateral cataract surgery, mole removal)
Social History
Tobacco: Former Smoker (Quit Jan 2024)
Alcohol: None
Drug: None
Personal:
Living: With Family
Family History
Family History: Not pertinent
Allergies / Home Medications
Allergies / Home Medications
Allergies
Allergy/AdvReac Type Severity Reaction Status Date / Time
doxycycline Allergy Swelling Verified 11/05/24 09:10
hydrochlorothiazide Allergy leg Verified 11/05/24 20:04
swelling.
Macrolide Antibiotics Allergy Hives Verified 11/05/24 09:10
nitrofurantoin Allergy swelling, Verified 11/05/24 09:10
racing
heart
Penicillins Allergy hives - Verified 11/05/24 09:10
tolerates
ceftriaxone
pentazocine (From Talwin) Allergy Anaphylaxis Verified 11/05/24 09:10
pravastatin Allergy body aches. Verified 11/05/24 20:04
pseudoephedrine (From Allergy Hives Verified 11/05/24 09:10
Sudafed)
rivaroxaban (From Xarelto) Allergy racing Verified 11/05/24 09:10
heart
telithromycin Allergy Hives Verified 11/05/24 09:10
Home Medications
�Medication �Instructions �Recorded �Confirmed �Last Taken �Type
amlodipine 10 mg tablet 10 mg PO DAILY Blood Pressure 09/06/22 11/05/24 11/04/24 History
vitamin C 500 mg-multivitamin with 1 tab PO DAILY Supplement 08/19/23 11/05/24 11/04/24 History
minerals chewable tablet
(Emergen-C)
tiotropium 2.5 mcg-olodaterol 2.5 2 puff inhalation R DAILY 09/25/23 11/05/24 11/04/24 History
mcg/actuation mist for inhalation Lung/Breathing Issues
(Stiolto Respimat)
apixaban 5 mg tablet (Eliquis) 5 mg PO BID Blood Clot 02/01/24 11/05/24 11/04/24 History
Prevention/Tx
ipratropium 0.5 mg-albuterol 3 mg 3 ml inhalation R Q6HPRN PRN sob 11/05/24 11/05/24 11/05/24 History
(2.5 mg base)/3 mL nebulization
soln
Review of Systems
Vitals / Labs / Diagnostic Testing
Vital Signs
Temp Pulse Resp BP Pulse Ox
98.4 F 99 16 145/77 91
11/06/24 07:30 11/06/24 07:48 11/06/24 07:48 11/06/24 08:04 11/06/24 07:48
Lab Data
11/05/24 09:27
11/06/24 07:33
Microbiology
11/05/24 09:27 Nasal Swab Influenza Types A & B (MARITA) - Final
Negative for Influenza A & B, NAAT
Negative results must be combined with clinical observations
and patient history.
Nucleic Acid Amplification test (NAAT)performed on the
[employer] NOW platform.
Diagnostic Testing:
Assessment
-
#1. Acute on chronic COPD exacerbation
- Influenza A, B screen negative. WBC count normal at 7.3. No obvious infiltrate noted on chest x-ray. COVID-19 screen negative as well. Patient is afebrile.
- Baseline severe COPD. FEV1/FVC 46 and FEV1 of 1 L, 45% of predicted in 03/2023. Consistent with severe airflow obstruction
- Had been on Stiolto BID lately. Poor tolerance of Advair/Breo/Wixela in the past. Also on nightly supplemental oxygen
- Agree with continuing DuoNeb scheduled, continue Solu-Medrol 40 mg twice daily today and transition to once daily starting tomorrow. Add budesonide nebulized twice a day
- No obvious pulmonary infiltrates noted, can discontinue ceftriaxone. Continue azithromycin daily for 3 days total
- Check VBG to evaluate for any underlying hypercapnia.
- Ideally patient needs to be on triple therapy with LAMA/LABA/ICS. She has poor tolerance to multiple inhaled agent including Breo, Advair, Breztri and Wixela in the past.
- Outpatient follow-up with pulmonary clinic, will start nebulized Budesonide BID at discharge.
- Evaluate for need for nightly positive pressure ventilation with venous blood gas
#2. Acute on chronic hypoxic respiratory failure
- Transiently increased oxygen need in the setting of COPD exacerbation
-At baseline patient uses 2 L of supplemental oxygen nightly
- Continue to wean down as tolerated
Other medical diagnoses:
- Pulmonary nodules. Follows up with [facility] pulmonary clinic with Dr. Marmolejo
- High pretest probability of underlying sleep apnea
- History of breast cancer, s/p lumpectomy and radiation
- Paroxysmal A fib
- HTN, HLD
- H/o TIA
DVT prophylaxis. Chronically on Eliquis 5 mg twice daily, continue.
Patient follows up with [facility] pulmonary clinic, will resume follow-up postdischarge
Total time spent on this consultation/encounter __65_ minutes which includes review of history, physical exam, medications, laboratory data, personal review of imaging, extensive review of outpatient records, discussion with care team and
respiratory therapy.
Data:
CXR 10/2024: No acute cardiopulmonary process.
CT Chest 06/2024: Mild bronchial wall and interstitial thickening is demonstrated in the right middle lobe, with associated minor pleural thickening. This has developed since prior examination. Possibly post inflammatory, versus post radiation
changes in the proper clinical setting.
Stable subpleural 5 mm nodule in the posterior medial right lower lobe, stable faint nodular opacity in the posterior medial left lower lobe, stable sub-5 mm pulmonary nodules.
Interval improvement in 3.3 mm superior segment left lower lobe nodule.
[2024-11-06 10:48] LABS: Venous Blood Gas B.E. 6.5 mmol/L (-4 to +4); Venous Blood Gas O2 Sat % 97.6 %
[2024-11-06 10:51] LABS: Venous Blood Gas O2 Therapy O2
[2024-11-06] MEDS: PULMICORT 0.5 MG INH (19:46)
[2024-11-07 03:32] VITALS: BP 139/68
[2024-11-07 07:30] VITALS: BP 149/73
[2024-11-07] MEDS: PULMICORT 0.5 MG INH ×2 (07:30→19:14)
[2024-11-07] MEDS: DUONEB 3 ML INH ×4 (07:30→19:14)
[2024-11-07] MEDS: SOLU-MEDROL PF 40 MG IV (07:57)
[2024-11-07] MEDS: ELIQUIS 5 MG PO ×2 (07:57→21:16)
[2024-11-07] MEDS: MUCINEX 600 MG PO ×2 (07:57→21:16)
[2024-11-07] MEDS: ZITHROMAX 500 MG PO (07:57)
[2024-11-07] MEDS: NORVASC 10 MG PO (07:57)
[2024-11-07] MEDS: FLUSH (NSS) 1 FLUSH IV (07:58)
[2024-11-07] MEDS: TESSALON PERLES 200 MG PO (08:02)
--- NOTE | 2024-11-07 09:53 | W.PN.HOSP.TC ---
Today's Communication/Plan
-
IV steroid
Assessment / Plan
Assessment / Plan
Physical Exam
General: Respiratory Distress
HEENT: Normocephalic, Anicteric and Moist mucous membranes
Respiratory: much less wheezes , limited.
Cardiac: S1/S2
GI: Soft, Non Tender, Non Distended and Normal Bowel Sounds
Musculoskeletal: No Clubbing, No Cyanosis and No Edema
Skin: Warm and Dry
Neuro: Awake, Alert and Oriented
Psych: Calm
79 year old female with history of COPD on 2L O2 prn HS, paroxysmal afib on Eliquis, right breast cancer (s/p mastectomy and completed radiation), TIA (1999), HTN, hypercholesterolemia, who presents with COPD exacerbation.
PLAN:
# Acute COPD exacerbation:
Secondary to viral URI. Started as common cold symptoms
Remains afebrile
Negative Flu/ COVID
CXR: No acute cardiopulmonary process.
reported phlegm with yellow color
Start on antibiotic, d/w pulmonary, c/w Zithromax ( she tolerated it before)
Added Cough medicine with Mucinex, PRN Tessalon. Pt reports less cough with Tessalon, requested a script on dc.
Change to IV Solu-Medrol 40 mg, change to QD for another 24 hours.
c/w Nebulizer treatment
Appreciate pulmonary help
# Insomnia, d/w pt
will c/w Melatonin, will add PRN Klonopin
Paroxysmal A-fib:
- EKG with SR and known LBBB
Not on rate control,
- Telemetry
- Continue Eliquis
Chronic conditions:
Remote hx of TIA
Hx of right breast cancer: Status post r mastectomy and completed radiation. No chemotherapy
Hypertension: continue Amlodipine
hypercholesterolemia:
Diet: Cholesterol lowering
DVT ppx: On Eliquis
Code status: DNR
Total time spent to see the patient, examine the patient, review data and lab results, discuss treatment plan with patient, nursing staff around 55 minutes
Anticipated Discharge: > 48 hours
Subjective/Interval History
-
Date of Service: November 07, 2024
No chest pain
Feels better overall
Objective Data
-
Vital Signs:
Vital Signs
Temp Pulse Resp BP Pulse Ox
97.5 F 79 18 149/73 95
11/07/24 07:30 11/07/24 07:57 11/07/24 07:34 11/07/24 07:57 11/07/24 09:09
I&O
11/06/24 11/07/24 11/08/24
06:59 06:59 06:59
Intake Total 480 / 480 720 / 720
Balance 480 / 480 720 / 720
[2024-11-07 11:15] VITALS: BP 134/79
--- NOTE | 2024-11-07 11:29 | W.PN.PUL3 ---
Today's Communication / Plan
-
- Change solumedrol to once daily
- Continue Duoneb and Budesonide.
Assessment
-
Patient is a 79-year-old female with known history of severe COPD, chronically home oxygen dependent particularly at nighttime. She has had multiple exacerbations in the past. She presents to hospital with worsening cough shortness of breath after
developing sore throat. She also developed some URI symptoms including nasal congestion clear rhinorrhea. She had some clear sputum production without any purulence noted. No reported hemoptysis. In view of worsening shortness of breath and no
relief with her nebulizer treatments multiple times she decided to seek further help. In the emergency room, patient was noted to have bilateral wheezing and was admitted to the hospital with concern for COPD exacerbation. Pulmonary consultation
was requested for further input.
#1. Acute on chronic COPD exacerbation
- Influenza A, B screen negative. WBC count normal at 7.3. No obvious infiltrate noted on chest x-ray. COVID-19 screen negative as well. Patient is afebrile.
- Baseline severe COPD. FEV1/FVC 46 and FEV1 of 1 L, 45% of predicted in 03/2023. Consistent with severe airflow obstruction
- Had been on Stiolto BID lately. Poor tolerance of Advair/Breo/Wixela/Breztri in the past. Also on nightly supplemental oxygen
- Agree with continuing DuoNeb scheduled, Solumedrol 40 daily. Continue budesonide nebulized twice a day
- No obvious pulmonary infiltrates noted, off ceftriaxone. Continue azithromycin daily for 3 days total
- Ideally patient needs to be on triple therapy with LAMA/LABA/ICS. She has poor tolerance to multiple inhaled agent including Breo, Advair, Breztri and Wixela in the past.
- Outpatient follow-up with pulmonary clinic, will start nebulized Budesonide BID at discharge.
- VBG suggestive of compensated hypercapnia. She might qualify for nightly positive pressure therapy if 4-week follow-up VBG still shows hypercapnia once she recovers from acute exacerbation. This can be pursued as outpatient through pulmonary
clinic.
#2. Acute on chronic hypoxic respiratory failure
- Transiently increased oxygen need in the setting of COPD exacerbation, doing well on room air today
- Assess for Home O2 prior to discharge
Other medical diagnoses:
- Pulmonary nodules. Follows up with [facility] pulmonary clinic with Dr. Marmolejo
- High pretest probability of underlying sleep apnea
- History of breast cancer, s/p lumpectomy and radiation
- Paroxysmal A fib
- HTN, HLD
- H/o TIA
DVT prophylaxis. Chronically on Eliquis 5 mg twice daily, continue.
Patient follows up with [facility] pulmonary clinic, will resume follow-up postdischarge
Total time spent on this consultation/encounter __45_ minutes which includes review of history, physical exam, medications, laboratory data, personal review of imaging, extensive review of outpatient records, discussion with care team and
respiratory therapy.
Data:
CXR 10/2024: No acute cardiopulmonary process.
CT Chest 06/2024: Mild bronchial wall and interstitial thickening is demonstrated in the right middle lobe, with associated minor pleural thickening. This has developed since prior examination. Possibly post inflammatory, versus post radiation
changes in the proper clinical setting.
Stable subpleural 5 mm nodule in the posterior medial right lower lobe, stable faint nodular opacity in the posterior medial left lower lobe, stable sub-5 mm pulmonary nodules.
Interval improvement in 3.3 mm superior segment left lower lobe nodule.
Subjective Data
-
Date of Service:
Date of Service: November 07, 2024
Subjective:
Patient comfortably walking in the hallway without supplemental oxygen, in no acute distress.
Review of Systems
Genitourinary: Other (All 14 systems reviewed and negative except as stated above in the history of present illness.)
Objective Data
Data Reviewed
Vital Signs / I&O / Oxygen:
Vital Signs
Temp Pulse Resp BP Pulse Ox
97.7 F 85 20 134/79 92
11/07/24 11:15 11/07/24 11:15 11/07/24 11:15 11/07/24 11:15 11/07/24 11:15
Intake and Output
11/06/24 11/07/24 11/08/24
06:59 06:59 06:59
Intake Total 480 / 480 720 / 720
Balance 480 / 480 720 / 720
SaO2 92
Nasal Cannula flow liters per 2
minute
Physical Exam
General: Comfortable
HEENT: Normocephalic
Cardiovascular: S1-S2
Respiratory: Wheeze (Bilateral end expiratory wheezing, overall improving)
GI: Soft and Non Distended
Neurology: Awake and Alert
Skin: Warm
Labs/Micro/Reports
Lab Data
11/05/24 09:27
11/06/24 07:33
Microbiology
11/05/24 09:27 Nasal Swab Influenza Types A & B (MARITA) - Final
Negative for Influenza A & B, NAAT
Negative results must be combined with clinical observations
and patient history.
Nucleic Acid Amplification test (NAAT)performed on the
[employer] platform.
[2024-11-07 15:17] VITALS: BP 114/68
[2024-11-07 19:59] VITALS: BP 141/78
[2024-11-07] MEDS: MELATONIN 3 MG PO (21:16)
[2024-11-07 23:32] VITALS: BP 124/65
[2024-11-08] VITALS (7 sets, daily range): BP systolic 133–144; BP diastolic 65–85; PULSE 87; O2SAT 91
[2024-11-08] MEDS: TESSALON PERLES 200 MG PO ×3 (00:14→19:48)
[2024-11-08] MEDS: NORVASC 10 MG PO (07:38)
[2024-11-08] MEDS: ELIQUIS 5 MG PO ×2 (07:38→21:25)
[2024-11-08] MEDS: FLUSH (NSS) 1 FLUSH IV (07:39)
[2024-11-08] MEDS: MUCINEX 600 MG PO ×2 (07:39→21:25)
[2024-11-08] MEDS: ZITHROMAX 500 MG PO (07:39)
[2024-11-08] MEDS: SOLU-MEDROL PF 40 MG IV (07:39)
[2024-11-08] MEDS: PULMICORT 0.5 MG INH ×2 (08:18→19:40)
[2024-11-08] MEDS: DUONEB 3 ML INH ×4 (08:18→19:40)
[2024-11-08] MEDS: ROBITUSSIN 100 MG PO (09:59)
--- NOTE | 2024-11-08 12:02 | W.PN.PUL3 ---
Today's Communication / Plan
-
Nebulizer therapy: Should be discharged on this regimen
Pulmicort twice a day.
DuoNebs 3-4 times a day [id number]
Stiolto on hold until she improves
Transition to prednisone 40 mg today slow taper going forward
Continue Acapella device
Mucolytic's
Good hydration
Upon discharge transition to azithromycin 250 mg every other day for anti-inflammatory properties until seen in our office
Hopefully can discharge in the next 24 to 48 hours if she continues to improve.
Assessment
-
Patient is a 79-year-old female with known history of severe COPD, chronically home oxygen dependent particularly at nighttime. She has had multiple exacerbations in the past. She presents to hospital with worsening cough shortness of breath after
developing sore throat. She also developed some URI symptoms including nasal congestion clear rhinorrhea. She had some clear sputum production without any purulence noted. No reported hemoptysis. In view of worsening shortness of breath and no
relief with her nebulizer treatments multiple times she decided to seek further help. In the emergency room, patient was noted to have bilateral wheezing and was admitted to the hospital with concern for COPD exacerbation. Pulmonary consultation
was requested for further input.
#1. Acute COPD exacerbation-acute tracheobronchitis.
- Influenza A, B screen negative. WBC count normal at 7.3. No obvious infiltrate noted on chest x-ray. COVID-19 screen negative as well. Patient is afebrile.
- Baseline severe COPD. FEV1/FVC 46 and FEV1 of 1 L, 45% of predicted in 03/2023. Consistent with severe airflow obstruction
- Had been on Stiolto BID lately. Poor tolerance of Advair/Breo/Wixela/Breztri in the past. Also on nightly supplemental oxygen
- Patient should be discharged when ready on budesonide/albuterol/ipratropium and will place usual inhaler on hold while she recovers. Unlikely to perform adequate technique with coughing.
- Not bronchospastic but still having a harsh cough, Solumedrol 40 daily. Transition to prednisone 40 mg daily today. Taper by 10 mg every 72 hours to off.
- No obvious pulmonary infiltrates noted, off ceftriaxone. Continue azithromycin daily for 3 days total-upon discharge for her bronchitic symptoms will maintain azithromycin 250 mg every other day until seen in our office for anti-inflammatory
properties.
- Ideally patient needs to be on triple therapy with LAMA/LABA/ICS. She has poor tolerance to multiple inhaled agent including Breo, Advair, Breztri and Wixela in the past.
- VBG suggestive of compensated hypercapnia. She might qualify for nightly positive pressure therapy if 4-week follow-up VBG still shows hypercapnia once she recovers from acute exacerbation. This can be pursued as outpatient through pulmonary
clinic.
#2. Acute on chronic hypoxic respiratory failure
- Transiently increased oxygen need in the setting of COPD exacerbation.
- Oxygen has been weaned off. Patient does have nocturnal oxygen at home.
Other medical diagnoses:
- Pulmonary nodules. Follows up with [facility] pulmonary clinic with Dr. Marmolejo
- High pretest probability of underlying sleep apnea0.
- History of breast cancer, s/p lumpectomy and radiation
- Paroxysmal A fib
- HTN, HLD
- H/o TIA
DVT prophylaxis. Chronically on Eliquis 5 mg twice daily, continue.
Patient follows up with [facility] pulmonary clinic, will resume follow-up postdischarge
Total time spent on this consultation/encounter __45_ minutes which includes review of history, physical exam, medications, laboratory data, personal review of imaging, extensive review of outpatient records, discussion with care team and
respiratory therapy.
Data:
CXR 10/2024: No acute cardiopulmonary process.
CT Chest 06/2024: Mild bronchial wall and interstitial thickening is demonstrated in the right middle lobe, with associated minor pleural thickening. This has developed since prior examination. Possibly post inflammatory, versus post radiation
changes in the proper clinical setting.
Stable subpleural 5 mm nodule in the posterior medial right lower lobe, stable faint nodular opacity in the posterior medial left lower lobe, stable sub-5 mm pulmonary nodules.
Interval improvement in 3.3 mm superior segment left lower lobe nodule.
Subjective Data
-
Date of Service:
Date of Service: November 08, 2024
Chief Complaint: Pulmonary Follow Up (Acute exacerbation of COPD)
Review of Systems
Cardiopulmonary: Dyspnea, Dyspnea on Exertion, Cough and Sputum Production
Objective Data
Data Reviewed
Vital Signs / I&O / Oxygen:
Vital Signs
Temp Pulse Resp BP Pulse Ox
98.2 F 81 18 144/75 95
11/08/24 11:06 11/08/24 11:10 11/08/24 11:10 11/08/24 11:06 11/08/24 11:10
Intake and Output
11/07/24 11/08/24 11/09/24
06:59 06:59 06:59
Intake Total 720 / 720 780 / 780
Balance 720 / 720 780 / 780
SaO2 95
Nasal Cannula flow liters per 2
minute
Physical Exam
General: Comfortable
HEENT: Normocephalic
Cardiovascular: S1-S2
Respiratory: Wheeze (Bilateral end expiratory wheezing, overall improving)
GI: Soft and Non Distended
Neurology: Awake and Alert
Skin: Warm
Labs/Micro/Reports
Lab Data
11/05/24 09:27
11/06/24 07:33
Microbiology
11/05/24 09:27 Nasal Swab Influenza Types A & B (MARITA) - Final
Negative for Influenza A & B, NAAT
Negative results must be combined with clinical observations
and patient history.
Nucleic Acid Amplification test (NAAT)performed on the
[employer] platform.
--- NOTE | 2024-11-08 12:11 | W.PN.HOSP.TC ---
Today's Communication/Plan
-
Assessment / Plan
Assessment / Plan
Physical Exam
General: No Apparent Distress, Comfortable and Conversant
HEENT: NormoCephalic, Moist mucous membranes, Atraumatic
Respiratory: Mild diffuse wheezing bilaterally, Non Labored Respirations
Cardiac: S1/S2 and Regular Rhythm; No Rub or Gallop
GI: Soft, Non Tender, Non Distended and Normal Bowel Sounds
Musculoskeletal: No Edema, no deformity
: NO Liu
Neuro: Awake, Alert, Nonfocal/grossly intact
Psych: Calm and Intact Judgment/Insight
79 year old female with history of COPD on 2L O2 prn HS, paroxysmal afib on Eliquis, right breast cancer (s/p mastectomy and completed radiation), TIA (1999), HTN, hypercholesterolemia, who presents with COPD exacerbation.
PLAN:
# Acute COPD exacerbation:
Secondary to viral URI. Started as common cold symptoms
Remains afebrile
Negative Flu/ COVID
CXR: No acute cardiopulmonary process.
reported phlegm with yellow color
Started on antibiotic for possible superimposed bacterial infection, d/w pulmonary, c/w Zithromax ( she tolerated it before)
Added Cough medicine with Mucinex, PRN Tessalon. Pt reports less cough with Tessalon, requested a script on dc.
Change to IV Solu-Medrol 40 mg, can likely transition to oral steroid taper in the next 24 hours in which case she can be discharged to home
c/w Nebulizer treatment
Appreciate pulmonary guidance
Has associated chronic respiratory failure with hypoxia, uses oxygen at home as needed, currently saturating appropriately on room air but uses 2 L as needed
# Insomnia, d/w pt
will c/w Melatonin, will add PRN Klonopin
Paroxysmal A-fib:
- EKG with SR and known LBBB
Not on rate control,
- Telemetry
- Continue Eliquis
Chronic conditions:
Remote hx of TIA
Hx of right breast cancer: Status post r mastectomy and completed radiation. No chemotherapy
Hypertension: continue Amlodipine
hypercholesterolemia:
Diet: Cholesterol lowering
DVT ppx: On Eliquis
Code status: DNR
Total time spent to see the patient, examine the patient, review data and lab results, discuss treatment plan with patient, nursing staff around 53 minutes
Anticipated Discharge: Within 24 hours
Subjective/Interval History
-
Date of Service: November 08, 2024
Patient was seen and examined at bedside this morning. Continues to have intermittent coughing fits. Overall feels she is breathing much better now compared to when she was first admitted. Has been unable to sleep though which she thinks is due
to the steroids.
Objective Data
-
Vital Signs:
Vital Signs
Temp Pulse Resp BP Pulse Ox
98.2 F 81 18 144/75 95
11/08/24 11:06 11/08/24 11:10 11/08/24 11:10 11/08/24 11:06 11/08/24 11:10
I&O
11/07/24 11/08/24 11/09/24
06:59 06:59 06:59
Intake Total 720 / 720 780 / 780
Balance 720 / 720 780 / 780
Review of Systems
-
History Source: Patient
All other systems: Reviewed and negative
Respiratory: Reports Cough
Psych: Reports Other (Insomnia)
Physical Exam
-
General: No Apparent Distress
--- NOTE | 2024-11-08 12:32 | CM ---
Patient seen at bedside
PT rec home health
prefer [facility]
PLAN: Home with [facility] when stable
--- NOTE | 2024-11-08 14:16 | VNURNOTE ---
Home Health Liaison met with patient at bedside to discuss [facility] nurse/therapy, visits, schedule and homebound status. Patient is agreeable and understands that visits at home will be 2-3 x per week to assess and teach medical management.
Patient is aware that [facility] will contact them for start of care in 1-2 days after discharge from . Provided contact number for [facility].
[facility] referral completed in [facility].
[2024-11-08] MEDS: MELATONIN 3 MG PO (21:25)
[2024-11-09] MEDS: ROBITUSSIN 100 MG PO (01:42)
[2024-11-09 03:33] VITALS: BP 151/77
[2024-11-09] MEDS: DUONEB 3 ML INH ×2 (07:23→11:13)
[2024-11-09] MEDS: PULMICORT 0.5 MG INH (07:23)
[2024-11-09 07:51] VITALS: BP 132/74
[2024-11-09] MEDS: DELTASONE 40 MG PO (09:24)
[2024-11-09] MEDS: ELIQUIS 5 MG PO (09:25)
[2024-11-09] MEDS: MUCINEX 600 MG PO (09:25)
[2024-11-09] MEDS: ZITHROMAX 500 MG PO (09:25)
[2024-11-09] MEDS: NORVASC 10 MG PO (09:25)
[2024-11-09] MEDS: TESSALON PERLES 200 MG PO (09:28)
--- NOTE | 2024-11-09 10:50 | W.DCSUMMARY ---
Discharge Summary
Discharge Data
Date of Admission: 11/05/24
Date of Discharge: 11/09/24
Total time spent discharging patient (in min): 48
-
Pending Results: No
Hospital Course
Ms. Morgan is a 79-year-old female with a medical history of COPD (2L O2 at night as needed), paroxysmal A-fib (on Eliquis), right breast cancer (status post mastectomy and radiation), TIA (1999), and hypertension who presented with a COPD
exacerbation. She improved with treatment with IV steroids and azithromycin. She was evaluated by pulmonology who recommended a long steroid taper at discharge and continuing azithromycin 250 mg every 48 hours. Pulmonology also recommended
Pulmicort twice daily and DuoNebs 3 times per day scheduled with additional as needed for shortness of breath or wheezing. She should hold her home Stiolto for now. She will need close outpatient pulmonology follow-up for ongoing management
including evaluation for possible nightly noninvasive positive pressure ventilation. She should also follow-up closely with her primary care physician. At time of hospital discharge she was medically stable.
General: No Apparent Distress, Comfortable and Conversant
HEENT: NormoCephalic, Moist mucous membranes, Atraumatic
Respiratory: Mild wheezing bilaterally, Non Labored Respirations
Cardiac: S1/S2 and Regular Rhythm; No Rub or Gallop
GI: Soft, Non Tender, Non Distended and Normal Bowel Sounds
Musculoskeletal: No Edema, no deformity
: NO Liu
Neuro: Awake, Alert, Nonfocal/grossly intact
Psych: Calm and Intact Judgment/Insight
Discharge Plan
-
Patient Disposition: Home (Routine Discharge)
Discharge Diagnosis/Procedures: Acute COPD exacerbation
Activity Restrictions/Additional Instructions:
Ms. Morgan is a 79-year-old female with a medical history of COPD (2L O2 at night as needed), paroxysmal A-fib (on Eliquis), right breast cancer (status post mastectomy and radiation), TIA (1999), and hypertension who presented with a COPD
exacerbation. She improved with treatment with IV steroids and azithromycin. She was evaluated by pulmonology who recommended a long steroid taper at discharge and continuing azithromycin 250 mg every 48 hours. Pulmonology also recommended
Pulmicort twice daily and DuoNebs 3 times per day scheduled with additional as needed for shortness of breath or wheezing. She should hold her home Stiolto for now. She will need close outpatient pulmonology follow-up for ongoing management
including evaluation for possible nightly noninvasive positive pressure ventilation. She should also follow-up closely with her primary care physician. At time of hospital discharge she was medically stable.
Referrals:
Kathrin Carnes CRNP [Non-Admitting Privileges, Pulmonary Medicine] - in one to two weeks
Yeni Jaimes CRNP [Family Provider, General]
Prescriptions:
New
benzonatate 100 mg Capsule
200 mg PO TIDPRN PRN (Reason: cough) Qty: 20 0RF
budesonide 0.5 mg/2 mL Suspension For Nebulization
0.5 mg inhalation R BID Qty: 60 0RF
ipratropium-albuterol 0.5 mg-3 mg(2.5 mg base)/3 mL Solution For Nebulization
3 ml inhalation TID Qty: 180 0RF
prednisone 10 mg tablet
See Taper PO DIRECTED Qty: 30 0RF
Taper: Prednisone DC Starting at 40 mg daily
40 mg Daily for 3 Days and 0 Hour
30 mg Daily for 3 Days and 0 Hour
20 mg Daily for 3 Days and 0 Hour
10 mg Daily for 3 Days and 0 Hour
azithromycin 250 mg tablet
250 mg PO MOWEFR Qty: 18 0RF
Rx Instructions:
250 mg orally;
Continued
amlodipine 10 mg Tablet
10 mg PO DAILY
Emergen-C 500 mg Tablet,Chewable
1 tab PO DAILY
Eliquis 5 mg Tablet
5 mg PO BID
ipratropium-albuterol 0.5 mg-3 mg(2.5 mg base)/3 mL Solution For Nebulization
3 ml INHALATION R Q6HPRN PRN (Reason: sob)
Held
Stiolto Respimat 2.5-2.5 mcg/actuation Mist
2 puff INHALATION R DAILY
Hold Instructions: Hold until outpatient pulmonology follow-up
Discharge Orders:
Discharge Patient (As Directed); Ordered 11/09/24
Ordered By: Dinesh Baltazar
Discharge Date and Time
Print Language: THAI
[2024-11-09 11:13] VITALS: BP 130/70
--- NOTE | 2024-11-09 11:14 | CM ---
Patient seen at bedside
discharge today
IMM explained & signed. In chart
PLAN: Home with [facility]
to transport
--- NOTE | 2024-11-09 13:05 | W.PN.PUL3 ---
Today's Communication / Plan
-
Continue with discharge planning
Sign off
Assessment
-
Patient is a 79-year-old female with known history of severe COPD, chronically home oxygen dependent particularly at nighttime. She has had multiple exacerbations in the past. She presents to hospital with worsening cough shortness of breath after
developing sore throat. She also developed some URI symptoms including nasal congestion clear rhinorrhea. She had some clear sputum production without any purulence noted. No reported hemoptysis. In view of worsening shortness of breath and no
relief with her nebulizer treatments multiple times she decided to seek further help. In the emergency room, patient was noted to have bilateral wheezing and was admitted to the hospital with concern for COPD exacerbation. Pulmonary consultation
was requested for further input.
#1. Acute COPD exacerbation-acute tracheobronchitis.
- Influenza A, B screen negative.-Clinically improved 11/09/2024 no obvious infiltrate noted on chest x-ray. COVID-19 screen negative as well. Patient is afebrile.
- Baseline severe COPD. FEV1/FVC 46 and FEV1 of 1 L, 45% of predicted in 03/2023. Consistent with severe airflow obstruction
- Had been on Stiolto BID lately. Poor tolerance of Advair/Breo/Wixela/Breztri in the past. Also on nightly supplemental oxygen
- Patient will be discharged when ready on budesonide/albuterol/ipratropium and will place usual inhaler on hold while she recovers. Unlikely to perform adequate technique with coughing.
- Transition to prednisone 40 mg daily today. Taper by 10 mg every 72 hours to off.
- No obvious pulmonary infiltrates noted, off ceftriaxone. Continue azithromycin daily for 3 days total-upon discharge for her bronchitic symptoms will maintain azithromycin 250 mg every other day until seen in our office for anti-inflammatory
properties.
- Ideally patient needs to be on triple therapy with LAMA/LABA/ICS. She has poor tolerance to multiple inhaled agent including Breo, Advair, Breztri and Wixela in the past.
- VBG suggestive of compensated hypercapnia. She might qualify for nightly positive pressure therapy if 4-week follow-up VBG still shows hypercapnia once she recovers from acute exacerbation. This can be pursued as outpatient through pulmonary
clinic.
#2. Acute on chronic hypoxic respiratory failure
- Transiently increased oxygen need in the setting of COPD exacerbation.
- Oxygen has been weaned off. Patient does have nocturnal oxygen at home.
Other medical diagnoses:
- Pulmonary nodules. Follows up with [facility] pulmonary clinic with Dr. Marmolejo
- High pretest probability of underlying sleep apnea0.
- History of breast cancer, s/p lumpectomy and radiation
- Paroxysmal A fib
- HTN, HLD
- H/o TIA
DVT prophylaxis. Chronically on Eliquis 5 mg twice daily, continue.
Patient follows up with [facility] pulmonary clinic, will resume follow-up postdischarge
Discharge planning, sign off
Data:
CXR 10/2024: No acute cardiopulmonary process.
CT Chest 06/2024: Mild bronchial wall and interstitial thickening is demonstrated in the right middle lobe, with associated minor pleural thickening. This has developed since prior examination. Possibly post inflammatory, versus post radiation
changes in the proper clinical setting.
Stable subpleural 5 mm nodule in the posterior medial right lower lobe, stable faint nodular opacity in the posterior medial left lower lobe, stable sub-5 mm pulmonary nodules.
Interval improvement in 3.3 mm superior segment left lower lobe nodule.
Subjective Data
-
Date of Service:
Date of Service: November 09, 2024
Chief Complaint: Pulmonary Follow Up (Acute exacerbation of COPD)
Subjective:
Feels better
Happy to be going home on discharge
Objective Data
Data Reviewed
Vital Signs / I&O / Oxygen:
Vital Signs
Temp Pulse Resp BP Pulse Ox
98.2 F 82 18 130/70 93
11/09/24 11:13 11/09/24 11:16 11/09/24 11:16 11/09/24 11:13 11/09/24 11:16
Intake and Output
11/08/24 11/09/24 11/10/24
06:59 06:59 06:59
Intake Total 780 / 780 1440 / 1440
Balance 780 / 780 1440 / 1440
SaO2 93
Nasal Cannula flow liters per 2
minute
Physical Exam
General: Comfortable
HEENT: Normocephalic
Cardiovascular: S1-S2
Respiratory: Wheeze (Bilateral end expiratory wheezing, overall improving)
GI: Soft and Non Distended
Neurology: Awake and Alert
Skin: Warm
Labs/Micro/Reports
Lab Data
11/05/24 09:27
11/06/24 07:33
== END 2024-11-09 14:05 | disposition home health service (06) | DRG 152 ==
LOC: 3 WEST ACU 15:05
PROVIDERS: Internal Medicine; Physician Assistant; Student in an Organized Health Care Education/Training Program; ADMITTING PHYSICIAN Hospitalist; ATTENDING PHYSICIAN Internal Medicine; CONSULT PHYSICIAN Internal Medicine; EMERGENCY PHYSICIAN Emergency Medicine; FAMILY PHYSICIAN Nurse Practitioner Adult Health
DX: J06.9 Acute upper respiratory infection, unspecified (principal); J96.21 Acute and chronic respiratory failure with hypoxia; J44.1 Chronic obstructive pulmonary disease with (acute) exacerbation; I48.0 Paroxysmal atrial fibrillation; Z66 Do not resuscitate; I10 Essential (primary) hypertension; E78.00 Pure hypercholesterolemia, unspecified; I44.7 Left bundle-branch block, unspecified; Z11.52 Encounter for screening for COVID-19; Z79.01 Long term (current) use of anticoagulants; Z85.3 Personal history of malignant neoplasm of breast; Z86.73 Personal history of transient ischemic attack (TIA), and cerebral infarction without residual deficits; Z87.891 Personal history of nicotine dependence; Z90.11 Acquired absence of right breast and nipple; Z92.3 Personal history of irradiation; Z99.81 Dependence on supplemental oxygen
CPT/HCPCS: 71045; 80048; 80053; 82805; 84484; 85025; 87502; 87811; 93005; 94640; 94644; 96374; 97116; 97162; 97166; 99285

== ENCOUNTER 2025-02-13 12:55 | Inpatient (IN) | payer OTHER, SELFPAY ==
[2025-02-13] VITALS (9 sets, daily range): BP systolic 107–151; BP diastolic 52–81; BMI 24.3; BMI 23.1
[2025-02-13 08:20] LABS: Hematocrit 45.3 % (37.0-47.0); Hemoglobin 14.9 g/dL (12.0-16.0); Mean Corp Hgb Conc. 32.9 g/dL (33.0-37.0); Mean Corpuscular Volume 88.5 fL (81.0-99.0); Nucleated Red Blood Cells % 0 %; Platelet Count 183 10^3/uL (130-400); Red Cell Dist. Width 13.6 % (11.5-14.5)
[2025-02-13 08:31] LABS: ALT (SGPT) 12 U/L (0-35); AST (SGOT) 21 U/L (14-36); Albumin 4.3 g/dl (3.5-5.0); Alkaline Phosphatase 87 U/L (38-126); Blood Urea Nitrogen 12 mg/dl (7-17); Calcium 9.2 mg/dl (8.4-10.2); Carbon Dioxide 28 mmol/L (22-30); Chloride 100 mmol/L (98-107); Estimated Creatinine Clearance 56 ml/min; Glucose 135 mg/dl (70-99); Potassium 3.9 mmol/L (3.5-5.1); Sodium 136 mmol/L (135-145); Total Protein 6.8 g/dl (6.3-8.2); eGFR > 60.00
[2025-02-13 08:43] LABS: Troponin I < 0.012 ng/ml
--- NOTE | 2025-02-13 08:49 | ED.GENMED ---
History of Present Illness
<Benjamin Rahman PA-C - Last Filed: 02/13/25 12:47>
General
Chief Complaint: Breathing Problem
Source: patient
Time Seen by Provider: 02/13/25 08:18
History of Present Illness
History of Present Illness:
79-year-old female with past medical history of previous CVA, COPD, atrial fibrillation, hypertension, previous DVT presenting to the emergency department for evaluation of cough and shortness of breath which she states started overnight, due to her
shortness of breath had contacted EMS who brought patient to the ER for further evaluation. On the way to the ER patient did receive a DuoNeb with some improvement of her shortness of breath, currently on 2 L nasal cannula which she states
she wears at nighttime but usually does not need any oxygen supplementation during the day. No reported fevers, chills, rigors, chest pain, palpitations, diaphoresis, lower extremity edema, orthopnea. Patient only other symptom that she states to
me is she feels 'weird at the moment' but is unable to further elaborate.
Past History
<Benjamin Rahman PA-C - Last Filed: 02/13/25 12:47>
Past History
ED Past Medical History: Arrthythmia (afib), Cancer, COPD, CVA, HTN, Psychiatric and Other (New diagnosis right lobular breast CA)
ED Past Surgical History: Gynecological and Orthopedic
Social History
Tobacco: Former smoker
Alcohol: None
Drug: None
Personal:
Living: with family
Review of Systems
<Benjamin Rahman PA-C - Last Filed: 02/13/25 12:47>
Review of Systems
All Other Systems: ROS reviewed and negative except as documented in HPI and ROS
Phy Exam
<Benjamin Rahman PA-C - Last Filed: 02/13/25 12:47>
Physical Exam
Physical Exam:
GENERAL: Alert , in no apparent distress
HEAD: Normocephalic atraumatic
EYE: conjunctiva clear
NECK: Supple, no significant adenopathy.
ENT: o/p clr, mmm.
CARDIAC: Tachycardic rate, regular rhythm
LUNGS: Diffuse anterior and posterior lung field expiratory wheezing, accessory muscle use and tachypneic but able to speak in full sentences
NEUROLOGICAL: Alert and oriented
SKIN: Warm and dry, skin intact.
MUSCULOSKELETAL: well perfused. No edema
PSYCH: Normal and appropriate interaction.
Scores
<Benjamin Rahman PA-C - Last Filed: 02/13/25 12:47>
Heart Failure Risk
Heart Failure Risk Score: Not Applicable
Heart Score for Chest Pain Patients
STEMI patient?: Not applicable
Withdrawal Assessment of Alcohol
Withdrawal Assessment Completed?: Not applicable
Course
<Benjamin Rahman PA-C - Last Filed: 02/13/25 12:47>
Orders/Labs/Results
Orders:
Orders
02/13/25 08:01
Electrocardiogram (*1) Urgent
Reason for Study: Shortness of Breath
EKG- Treatment ONCE
CR Chest - 2 Views Urgent
Comment:
Reason For Exam: cough
02/13/25 08:03
Complete Blood Count/With Diff Urgent
Comprehensive Metabolic Panel Urgent
NT-proBNP Urgent
Comment: ADD ON
Troponin I Urgent
02/13/25 08:09
COVID-19 Antigen Urgent
Source: Nasal Swab
Influenza A+B Rapid Molecular Urgent
ELISABETH Source: Nasal Swab
Specimen Description:
02/13/25 08:48
Albuterol Sulfate [Ventolin Nebules] 10 mg INH R NOW STA
02/13/25 08:54
Add On- LAB Urgent
Tests Added?: BNP
02/13/25 09:06
MethylPREDNISolone PF [Solu-Medrol Pf] 40 mg IV NOW STA
02/13/25 09:14
MethylPREDNISolone PF [Solu-Medrol Pf] 125 mg IV NOW STA
02/13/25 09:37
Furosemide [Lasix] 40 mg IV NOW STA
02/13/25 10:00
Flush (0.9% Sodium Chloride) [Flush (Nss)] See Dose Instructions IV PER PROTOCOL
02/13/25 12:29
Admit/Transfer Patient As Directed
Co-Sign Provider:
Level of Care: Inpatient admission
Assign to:: Telemetry
Physician / Group: Reji
Diagnosis: COPD Exacerbation
Reason for Telemetry: Other
Other Reason for Telemetry: Evaluating for CHF
Date to Stop Telemetry: 02/15/25
Time to Stop Telemetry: 11:00
Reason for Hospitalization: see progess note
Expected length of stay greater than two midnights?: Yes
ELOS- Estimated Length of Stay in days: 3
I certify the patient meets the requirements for IP care: Yes
02/13/25 12:30
PRN Pain Medication Management As Directed
May give lesser potent ordered pain med per pt: Yes
preference::
Protocol:: Medication orders for pain may be administered in a
manner that supports deferring to patient preference
when the pt is:
- Requesting an ordered lesser potent pain medication.
Least to most potent pain medications are defined
as: acetaminophen < NSAID < tramadol < opioids
(morphine, oxycodone, hydromorphone).
- Requesting a lesser dose of the same medication IF
ORDERED.
- Requesting a less intrusive route of administration
if both routes are prescribed by the provider (PO <
IV).
02/15/25 11:00
DC Protocol for Telemetry ONCE
Abnormal Lab Results
02/13/25
08:03
MCHC 32.9 L g/dL
(33.0-37.0)
Absolute Lymphs (auto) 0.7 L 10^3/uL
(1.2-3.4)
Absolute Monos (auto) 0.7 H 10^3/uL
(0.1-0.6)
Neutrophils % 79.8 H %
(42.2-75.2)
Lymphocytes % 9.6 L %
(20.5-51.1)
Monocytes % 10.1 H %
(1.7-9.3)
Glucose 135 H mg/dl
(70-99)
02/13/25 08:03
02/13/25 08:03
Vital Signs
Initial and Last Documented VS:
Initial Vital Signs
Temp Pulse Resp Pulse Ox
99.1 F 109 18 91
02/13/25 07:54 02/13/25 07:54 02/13/25 07:54 02/13/25 07:54
Last Documented Vital Signs
Temp Pulse Resp BP Pulse Ox
99.1 F 92 20 113/52 95
02/13/25 07:54 02/13/25 12:00 02/13/25 12:00 02/13/25 12:00 02/13/25 12:00
<Juan Cruz MD - Last Filed: 02/13/25 09:46>
Orders/Labs/Results
Orders:
Orders
02/13/25 08:01
Electrocardiogram (*1) Urgent
Reason for Study: Shortness of Breath
EKG- Treatment ONCE
CR Chest - 2 Views Urgent
Comment:
Reason For Exam: cough
02/13/25 08:03
Complete Blood Count/With Diff Urgent
Comprehensive Metabolic Panel Urgent
NT-proBNP Urgent
Comment: ADD ON
Troponin I Urgent
02/13/25 08:09
COVID-19 Antigen Urgent
Source: Nasal Swab
Influenza A+B Rapid Molecular Urgent
ELISABETH Source: Nasal Swab
Specimen Description:
02/13/25 08:48
Albuterol Sulfate [Ventolin Nebules] 10 mg INH R NOW STA
02/13/25 08:54
Add On- LAB Urgent
Tests Added?: BNP
02/13/25 09:06
MethylPREDNISolone PF [Solu-Medrol Pf] 40 mg IV NOW STA
02/13/25 09:14
MethylPREDNISolone PF [Solu-Medrol Pf] 125 mg IV NOW STA
02/13/25 09:37
Furosemide [Lasix] 40 mg IV NOW STA
02/13/25 10:00
Flush (0.9% Sodium Chloride) [Flush (Nss)] See Dose Instructions IV PER PROTOCOL
02/13/25 12:29
Admit/Transfer Patient As Directed
Co-Sign Provider:
Level of Care: Inpatient admission
Assign to:: Telemetry
Physician / Group: Reji
Diagnosis: COPD Exacerbation
Reason for Telemetry: Other
Other Reason for Telemetry: Evaluating for CHF
Date to Stop Telemetry: 02/15/25
Time to Stop Telemetry: 11:00
Reason for Hospitalization: see progess note
Expected length of stay greater than two midnights?: Yes
ELOS- Estimated Length of Stay in days: 3
I certify the patient meets the requirements for IP care: Yes
02/13/25 12:30
PRN Pain Medication Management As Directed
May give lesser potent ordered pain med per pt: Yes
preference::
Protocol:: Medication orders for pain may be administered in a
manner that supports deferring to patient preference
when the pt is:
- Requesting an ordered lesser potent pain medication.
Least to most potent pain medications are defined
as: acetaminophen < NSAID < tramadol < opioids
(morphine, oxycodone, hydromorphone).
- Requesting a lesser dose of the same medication IF
ORDERED.
- Requesting a less intrusive route of administration
if both routes are prescribed by the provider (PO <
IV).
02/15/25 11:00
DC Protocol for Telemetry ONCE
Abnormal Lab Results
02/13/25
08:03
MCHC 32.9 L g/dL
(33.0-37.0)
Absolute Lymphs (auto) 0.7 L 10^3/uL
(1.2-3.4)
Absolute Monos (auto) 0.7 H 10^3/uL
(0.1-0.6)
Neutrophils % 79.8 H %
(42.2-75.2)
Lymphocytes % 9.6 L %
(20.5-51.1)
Monocytes % 10.1 H %
(1.7-9.3)
Glucose 135 H mg/dl
(70-99)
02/13/25 08:03
02/13/25 08:03
Vital Signs
Initial and Last Documented VS:
Initial Vital Signs
Temp Pulse Resp Pulse Ox
99.1 F 109 18 91
02/13/25 07:54 02/13/25 07:54 02/13/25 07:54 02/13/25 07:54
Last Documented Vital Signs
Temp Pulse Resp BP Pulse Ox
99.1 F 92 20 113/52 95
02/13/25 07:54 02/13/25 12:00 02/13/25 12:00 02/13/25 12:00 02/13/25 12:00
<Benjamin Rahman PA-C - Last Filed: 02/13/25 12:47>
MDM/Problems Addressed
Differential Diagnosis Includes:
COPD exacerbation
Pneumonia
CHF
PE considered however patient is anticoagulated on eliquis
Covid/Flu
Viral syndrome
MDM/Problems Addressed:
79-year-old female presenting the ER for evaluation of shortness of breath and cough that started overnight, EMS treated with a DuoNeb. On arrival to the ER patient still has mild hypoxia and maintained on 2 L via nasal cannula. Diffuse expiratory
wheezing noted on my exam. Will treat with additional albuterol and Solu-Medrol. Labs initiated on arrival as well as chest x-ray ordered. Chest x-ray does show a trace effusion as well as cardiomegaly, mostly unchanged from previous chest x-ray.
Given age combined with history as well as current need for O2 anticipate admission
Chronic conditions affecting care: COPD
Acute Exacerbation and/or Progression of Chronic Illness: COPD
<Benjamin Rahman PA-C - Last Filed: 02/13/25 12:47>
*Radiology
Radiology exam reviewed: preliminary read by ED provider (Cardiomegaly and trace pleural effusion)
*Pulse Oximetry
SaO2: 91
Oxygen Mode of Delivery: Room air
Patient hypoxic: yes
*EKG
Interpreted by ED Provider?: Yes
Heart Rate: 109
Rate: tachycardiac
Rhythm: sinus
Novi: left axis deviation
*Senior Designer/Art Director Interpretation
Rate: tachycardiac
Heart Rate: 108
Rhythm: sinus
*Critical Care Note
Total Time (30-74mins, 75-104mins- exclusive of procedures): Not Applicable
Data Reviewed
Review of Other/Old Records Reveals: Records
<Benjamin Rahman PA-C - Last Filed: 02/13/25 12:47>
Patient Management
Discussion with other providers: Hospitalist
Escalation/DeEscalation of care consider admission/obs:
Hospitalist team was notified and accepted for continued evaluation and treatment of COPD exacerbation. I did order a dose of Lasix as patient's BNP was greater than 1700 which was increased from previous.
ED Attending Note
<Benjamin Rahman PA-C - Last Filed: 02/13/25 12:47>
-
Portions of this chart may have been created with voice recognition software.� Occasional wrong word or��sound alike� substitutions may have occurred due to the inherent limitations of voice recognition software.
<Juan Cruz MD - Last Filed: 02/13/25 09:46>
ED Attending Note
Patient seen and examined by attending physician: Yes
ED Attending Note:
I have seen and evaluated the patient with a [id number] encounter. I have spoken to the advance practicer provider and involved in the medical history, the physical exam, medical decision making.
Evaluation and management service: agree unless noted differently below.
Results interpretation: agree unless noted differently below.
Focused HPI: 79-year-old female with history as noted presents for shortness of breath. Patient reports that she had a busy day yesterday cleaning up after [place] and think she may have overdone it, last night started with shortness of breath,
wheezing and coughing. She had trouble sleeping, woke up with worsening dyspnea which prompted EMS call. She wears 2 L of oxygen at baseline but not typically on oxygen during the day as per EMS she was hypoxic on their arrival. She was given a
DuoNeb and route to the hospital. Aside from wheezing, coughing, shortness of breath she denies any chest pain. Denies weight gain or swelling in the legs. She denies any other acute complaints.
Physical exam: Awake and alert, mild respiratory distress. She is mildly tachypneic, hypoxic requiring 3 L nasal cannula. She has some mild tachycardia. Normotensive. She has diffuse bilateral expiratory wheezing with prolonged and expiration.
No cardiac murmurs appreciated. No significant edema or JVD.
Medical Decision Makin-year-old female presents for evaluation of cough, wheezing, shortness of breath that started last night. Vitals and exam as above. Overall consistent with COPD exacerbation. Labs here no clinically significant
abnormalities. Chest x-ray shows no pneumonia no signs of CHF. Treated with nebs, steroids. Admit for acute on chronic respiratory failure with hypoxia secondary to COPD exacerbation.
Discharge Plan
Departure
Patient Disposition: Admit
Date of Disposition: 02/13/25
Time of Disposition: 09:15
Presentation/result/management discussed w/ accepting MD/DO: Hospitalist
Discharge Problem:
Acute exacerbation of chronic obstructive pulmonary disease
Prescriptions:
No Action
amlodipine 10 mg Tablet
10 mg PO DAILY
Emergen-C 500 mg Tablet,Chewable
1 tab PO DAILY
Eliquis 5 mg Tablet
5 mg PO BID
ipratropium-albuterol 0.5 mg-3 mg(2.5 mg base)/3 mL Solution For Nebulization
3 ml INHALATION R Q6HPRN PRN (Reason: sob)
Stiolto Respimat 2.5-2.5 mcg/actuation Mist
2 puff INHALATION R DAILY
Metamucil Packet
1 packet PO DAILYPRN PRN (Reason: constipation)
Referrals:
Yeni Jaimes CRNP [Family Provider, General]
Interventions
Interventions:
*General Assessment Last Done: 02/13/25 07:54
*Neglect/Abuse Screening Last Done: 02/13/25 07:54
*ED Influenza Vaccine History Last Done: 02/13/25 07:54
[facility] Fall Risk Assessment Tool Last Done: 02/13/25 08:53
*Risk Screen - Suicide (C-SSRS) Last Done: 02/13/25 07:54
ED- Cardiac Assessment Last Done: 02/13/25 08:48
ED- Pulmonary Assessment Last Done: 02/13/25 08:48
Discharge Date and Time
Print Language: GUATEMALAN
[2025-02-13 08:51] LABS: COVID-19 Antigen Negative (Negative)
[2025-02-13] MEDS: VENTOLIN NEBULES 10 MG INH (09:20)
[2025-02-13] MEDS: SOLU-MEDROL PF 125 MG IV (09:22)
--- NOTE | 2025-02-13 10:07 | EDCM ---
Reviewed chart and met with pt and family bedside in ED. Lives with her in apartment at [place] [id number]. Has elevator access.
Independent in ADLs, personal care and ambulation at baseline. No assistive devices. Has Home O2 from [employer], wears 2L NC at night.
PMH includes CVA, COPD, HTN, Afib, DVT and Breast Cancer.
Confirms prescription coverage.
Hx [facility] after October admission, no hx SNF
PCP: Yeni Jaimes
Rx: [facility]
Discharge disposition pending ongoing medical evaluation, CM will continue to follow for all discharge planning needs.
[2025-02-13] MEDS: LASIX 40 MG IV (10:27)
--- NOTE | 2025-02-13 12:57 | HPS.HSE ---
Family Physician
-
Family Physician: Yeni Jaimes
Chief Complaint
-
Cough and shortness of breath.
History of Present Illness
Patient is 79 with a history of COPD, chronically home oxygen dependent particularly at night and prior multiple exacerbations in the last 1 in October this year presents back with cough present since yesterday with seems to be productive. She
was also started to feel short of breath which she rather says is acute. She was having okay day yesterday. She was having okay week. Denies any nasal congestion. No fever or chills. No chest pains or palpitations.
Not sure whether she gained any weight but definitely no lower extremity swelling. Denies any prior history of heart disease other than A-fib. No history of heart failure. Again denied any palpitations yesterday.
She received DuoNebs and route to hospital but also in the hospital and she is feeling better now. She also received Lasix and she is not sure why she That.
No fever or chills.
Denies any nausea vomiting or diarrhea. Tolerating diet. Denies any dysuria or frequency of urine.
Medical History
Past Medical History
Past Medical History: Reports Arrhythmia (afib on Eliquis), COPD (on 2L O2 NC HS prn), HTN, Hypercholesterolemia and Other (TIA in 1999, right breast cancer, pulmonary nodules, basal cell carcinoma)
Past Surgical History: Reports Other (R mastectomy, lipoma removal, basal cell removal, bilateral cataract surgery, mole removal)
Social History
Tobacco: Former Smoker (Quit Jan 2024)
Alcohol: None
Drug: None
Personal:
Living: With Family
Family History
Family History: Not pertinent
Allergies / Home Medications
Allergies reflects when Allergies were last updated in [facility].
Home Medications with original date entered in [facility]
Allergy/Medication List:
Allergies
Allergy/AdvReac Type Severity Reaction Status Date / Time
doxycycline Allergy Swelling Verified 09/19/25 09:10
hydrochlorothiazide Allergy Unknown Verified 11/05/24 09:10
Macrolide Antibiotics Allergy Hives Verified 11/05/24 09:10
nitrofurantoin Allergy swelling, Verified 11/05/24 09:10
racing
heart
Penicillins Allergy hives - Verified 11/05/24 09:10
tolerates
ceftriaxone
pentazocine (From Talwin) Allergy Anaphylaxis Verified 11/05/24 09:10
pravastatin Allergy Unknown Verified 11/05/24 09:10
pseudoephedrine (From Allergy Hives Verified 11/05/24 09:10
Sudafed)
rivaroxaban (From Xarelto) Allergy racing Verified 11/05/24 09:10
heart
telithromycin Allergy Hives Verified 11/05/24 09:10
Home Medications
amlodipine 10 mg tablet 10 mg PO DAILY Blood Pressure 09/06/22
vitamin C 500 mg-multivitamin with minerals chewable tablet (Emergen-C) 1 tab PO DAILY Supplement 08/19/23
tiotropium 2.5 mcg-olodaterol 2.5 mcg/actuation mist for inhalation (Stiolto Respimat) 2 puff inhalation R DAILY Lung/Breathing Issues 09/25/23
apixaban 5 mg tablet (Eliquis) 5 mg PO BID Blood Clot Prevention/Tx 02/01/24
ipratropium 0.5 mg-albuterol 3 mg (2.5 mg base)/3 mL nebulization soln 3 ml inhalation R Q6HPRN PRN sob 11/05/24
Review of Systems
-
A 12 point ROS was completed and negative except as noted: Yes
Physical Exam
Vital Signs
Vital Signs
Temp Pulse Resp BP Pulse Ox
99.1 F 92 20 113/52 95
02/13/25 07:54 02/13/25 12:00 02/13/25 12:00 02/13/25 12:00 02/13/25 12:00
Physical Exam
General: No Apparent Distress and Comfortable
HEENT: Moist mucous membranes
Respiratory: Non Labored Respirations; No Wheezes, Crackles or Accessory Resp Muscle Use
Cardiac: S1/S2, Regular Rhythm and Tachycardia; No JVD
GI: Soft, Non Tender, Non Distended and Normal Bowel Sounds
Musculoskeletal: No Edema
Neuro: AO x 3 and No Motor Deficits
Psych: Calm; No Confused or Agitated
Laboratory Results
-
02/13/25 08:03
02/13/25 08:03
Laboratory Results
Total Bilirubin 0.3 mg/dl (0.2-1.3) 02/13/25 08:03
AST 21 U/L (14-36) 02/13/25 08:03
ALT 12 U/L (0-35) 02/13/25 08:03
Alkaline Phosphatase 87 U/L (38-126) 02/13/25 08:03
Troponin I < 0.012 ng/ml 02/13/25 08:03
Data Reviewed
-
Diagnostic Radiology: Image Personally Visualized and interpreted (cxr - COPD , no obvious consolidation or pleural effusions noted -await official report)
Lab Data: Labs Reviewed by me
Impression/Plan
-
Acute COPD exacerbation
Patient presents with cough that seems to be productive and shortness of breath but not acute since yesterday. Clinically doubt heart failure. Her BNP is 1700, chest x-ray without any obvious CHF or pleural effusions, no JVD, chest is sounding
clear. No prior history of heart failure. Hold further Lasix. Pt does have chronic LBBB but denies prior IN. No prior cardiac workup per patient.
She does have atrial fibrillation currently in sinus rhythm without any paroxysmal A-fib causing shortness of breath that she has productive cough.
Likely COPD flare. She is known to have severe COPD with many exacerbations.
Admit to hospital. Start on IV steroids.
Start on DuoNebs 4 times daily and as needed
Continue other inhaler therapy
Consult pulmonary
Check ECHO
Acute hypoxic respiratory insufficiency and chronic hypoxic respiratory failure. Patient uses oxygen 2 L at at bedtime for COPD.
Currently on nasal cannula. Wean oxygen as able.
Paroxysmal atrial fibrillation
In sinus rhythm. Not on any rate control medications.
Continue with Eliquis.
Essential hypertension
Continue with amlodipine
Full code
[2025-02-13] MEDS: TESSALON PERLES 100 MG PO (14:54)
[2025-02-13] MEDS: DUONEB 3 ML INH ×2 (16:39→19:54)
[2025-02-13] MEDS: DECADRON 4 MG IV ×2 (17:28→21:15)
--- NOTE | 2025-02-13 18:01 | PTCARENOTE ---
pt was received to 3W from ED, ambulated into room on 2L O2. AOx3, VSS obtained, oriented to room. Call faria within reach, bed in lowest position, BSC available at bedside, follow plan of care
[2025-02-13] MEDS: ELIQUIS 5 MG PO (21:15)
[2025-02-14 03:00] VITALS: BP 138/79
[2025-02-14] MEDS: DECADRON 4 MG IV ×4 (05:06→21:20)
[2025-02-14 06:00] VITALS: BMI 23.2
[2025-02-14 06:18] LABS: Hematocrit 41.3 % (37.0-47.0); Hemoglobin 13.5 g/dL (12.0-16.0); Mean Corp Hgb Conc. 32.7 g/dL (33.0-37.0); Mean Corpuscular Volume 89.4 fL (81.0-99.0); Nucleated Red Blood Cells % 0 %; Platelet Count 164 10^3/uL (130-400); Red Cell Dist. Width 13.5 % (11.5-14.5)
[2025-02-14 06:40] LABS: Blood Urea Nitrogen 30 mg/dl (7-17); Calcium 9.2 mg/dl (8.4-10.2); Carbon Dioxide 29 mmol/L (22-30); Chloride 102 mmol/L (98-107); Estimated Creatinine Clearance 50 ml/min; Glucose 134 mg/dl (70-99); Potassium 4.5 mmol/L (3.5-5.1); Sodium 136 mmol/L (135-145); eGFR > 60.00
[2025-02-14] MEDS: NORVASC 10 MG PO (07:21)
[2025-02-14] MEDS: ELIQUIS 5 MG PO ×2 (07:21→21:20)
[2025-02-14] MEDS: TESSALON PERLES 100 MG PO ×2 (07:21→21:19)
[2025-02-14] MEDS: DUONEB 3 ML INH ×4 (07:26→20:19)
[2025-02-14 07:37] VITALS: BP 131/75
[2025-02-14] MEDS: SPIRIVA RESPIMAT 2.5 MCG 2 PUFF INH (07:41)
[2025-02-14] MEDS: STRIVERDI RESPIMAT 2 PUFF INH (07:41)
[2025-02-14] MEDS: MUCINEX 1200 MG PO ×2 (09:02→21:20)
--- NOTE | 2025-02-14 09:10 | CON.PUL ---
Consultation
Consultation Request
Date/Time Consultation Requested: 02/13/2025 - 1546
Date/Time Consultation Performed: 02/14/2025 - 0850
Requesting Provider: Dr. Mendoza
Performing Provider: Dr. Tolliver
Reason for Consultation: SOB/COPD exacerbation
Medical History
-
Chief Complaint: SOB
History of Present Illness:
79-year-old female former tobacco smoker with a past medical history of severe COPD, hypertension, right breast invasive lobular carcinoma diagnosed June 2023 s/p right mastectomy + XRT, history of DVT, liposarcoma of the right leg (2020), history of
chronic bronchitis, history of pneumonia, and DINORAH who presents with SOB. Patient has been wearing her 2 L/min nasal cannula at nighttime. She has started to have cough 1 day ON CALL which is productive. She denied nasal congestion, fevers or chills.
Also no chest pain or palpitations. She receives DuoNebs on the way to the hospital. In the ER she was afebrile, pulse rate 109, respiratory rate 18, BP 151/81 and she was saturating 91% on room air. Labs showed normal WBC at 7.3, Hb 14.9,
troponin negative x 1 and proBNP 1700. COVID-19 antigen negative. Flu swab also negative. CXR obtained showing no acute disease of the chest. In the ER she received albuterol, 40 mg Lasix and 125 mg of send Medrol. She did improve with the
DuoNeb treatment. She was admitted to the Hospitalist service with a COPD exacerbation, and Pulmonary service now consulted for additional management/recommendations.
Of note patient follows with us in the office with Dr. Villafana, with last office visit on 12/02/2024. Patient has not been able to tolerate inhaled corticosteroids due to thrush despite multiple inhalers attempted. She is on Stiolto 2 puffs daily
and is doing well on this regimen. At the time of this last office visit, she was completing a course of macrolide therapy after a prior exacerbation. She rarely uses her rescue inhaler. Previously was on Breo 200 mcg + Spiriva HandiHaler with as
needed albuterol. 6MWT at last office visit in November 2024 showed luisa SaO2 of 92% with dyspnea scale remaining between 0 and 1, and she walked 750 feet with no need for oxygen. Last PFT was on 04/21/2024 showing a severe obstructive lung defect
with no evidence of air trapping or hyperinflation, and a moderately reduced gas exchange capacity that normalized when accounting for alveolar volume involved in gas exchange (DLCO: 58%; DLCO/VA: 75%). Pulmonary rehab was previously discussed
however given her newly diagnosed breast cancer at the time, she did not want to get involved. She still would like to hold off as she takes care of her disabled .
PMHx: Severe COPD, former tobacco use disorder, pulmonary nodules, hypertension, TIA, nocturnal hypoxia on 2 L/min, history of snoring, LBBB, paroxysmal A-fib on Eliquis, BCC of the face, history of DVT, liposarcoma of the right leg (2020), history
of pneumonia, history of chronic bronchitis, colonic polyps, right breast invasive lobular carcinoma diagnosed June 2023 s/p right mastectomy + XRT, DINORAH
PSHx: Lipoma removal, basal cell removal (01/2023), cataract with lens implants (2007, 2013), Mohs procedure on face, ultrasound-guided right breast biopsy
Past Medical History
Past Medical History: Other (Above as per HPI)
Past Surgical History: Other (Above as per HPI)
Social History
Tobacco: Former Smoker (Started smoking at age 17, 0.5 PPD; quit in June 2023)
Alcohol: None
Drug: None
Personal:
Living: With Family
Family History
Family History: CAD (Father), Hypertension (Father + sibling) and Other (Paternal grandfather: COPD)
Allergies / Home Medications
Allergies
Allergy/AdvReac Type Severity Reaction Status Date / Time
doxycycline Allergy Swelling Verified 02/13/25 12:58
hydrochlorothiazide Allergy leg Verified 02/13/25 12:58
swelling.
Macrolide Antibiotics Allergy Hives Verified 02/13/25 12:58
nitrofurantoin Allergy swelling, Verified 02/13/25 12:58
racing
heart
Penicillins Allergy hives - Verified 02/13/25 12:58
tolerates
ceftriaxone
pentazocine (From Talwin) Allergy Anaphylaxis Verified 02/13/25 12:58
pravastatin Allergy body aches. Verified 02/13/25 12:58
pseudoephedrine (From Allergy Hives Verified 02/13/25 12:58
Sudafed)
rivaroxaban (From Xarelto) Allergy racing Verified 02/13/25 12:58
heart
telithromycin Allergy Hives Verified 02/13/25 12:58
Home Medications
�Medication �Instructions �Recorded �Confirmed �Last Taken �Type
amlodipine 10 mg tablet 10 mg PO DAILY Blood Pressure 09/06/22 02/13/25 02/12/25 History
vitamin C 500 mg-multivitamin with 1 tab PO DAILY Supplement 08/19/23 02/13/25 02/12/25 History
minerals chewable tablet
(Emergen-C)
apixaban 5 mg tablet (Eliquis) 5 mg PO BID Blood Clot 02/01/24 02/13/25 02/12/25 History
Prevention/Tx
ipratropium 0.5 mg-albuterol 3 mg 3 ml inhalation R Q6HPRN PRN sob 11/05/24 02/13/25 11/05/24 History
(2.5 mg base)/3 mL nebulization
soln
psyllium 1 packet PO DAILYPRN PRN 02/13/25 02/13/25 Unknown History
constipation
tiotropium 2.5 mcg-olodaterol 2.5 2 puff inhalation R DAILY 02/13/25 02/13/25 02/12/25 History
mcg/actuation mist for inhalation
(Stiolto Respimat)
Review of Systems
-
History Source: Patient
All other systems: Negative unless noted
Vitals / Labs / Diagnostic Testing
Vital Signs
Temp Pulse Resp BP Pulse Ox
98.4 F 89 18 131/75 95
02/14/25 07:37 02/14/25 07:37 02/14/25 07:37 02/14/25 07:37 02/14/25 08:21
Lab Data
02/14/25 05:37
02/14/25 05:37
Microbiology
02/13/25 08:09 Nasal Swab Influenza Types A & B (MARITA) - Final
Negative for Influenza A & B, NAAT
Negative results must be combined with clinical observations
and patient history.
Nucleic Acid Amplification test (NAAT)performed on the
[employer] platform.
Diagnostic Testing:
Physical Exam
-
HEENT: Normocephalic and Anicteric
Cardiovascular: S1/S2 and Peripheral Edema (n)
Respiratory: Wheeze (n), Rales (Bilateral), Rhonchi (n), Non-Labored Respirations and Other (Diminished breath sounds bilaterally)
GI: Soft, Non Distended, Non Tender and Normal Bowel Sounds
Neurology: Awake, Alert, Oriented and Tremors (n)
Skin: Warm and Dry
General: Respiratory Distress (n), Comfortable, Fever (n) and Chills (n)
Assessment
-
Assessment: 79-year-old female former tobacco smoker with a past medical history of severe COPD, hypertension, right breast invasive lobular carcinoma diagnosed June 2023 s/p right mastectomy + XRT, history of DVT, liposarcoma of the right leg
(2020), history of chronic bronchitis, history of pneumonia, and DINORAH who presents with SOB. Patient has been wearing her 2 L/min nasal cannula at nighttime. She has started to have cough 1 day ON CALL which is productive. She denied nasal congestion,
fevers or chills. Also no chest pain or palpitations. She receives DuoNebs on the way to the hospital. In the ER she was afebrile, pulse rate 109, respiratory rate 18, BP 151/81 and she was saturating 91% on room air. Labs showed normal WBC at
7.3, Hb 14.9, troponin negative x 1 and proBNP 1700. COVID-19 antigen negative. Flu swab also negative. CXR obtained showing no acute disease of the chest. In the ER she received albuterol, 40 mg Lasix and 125 mg of send Medrol. She did improve
with the DuoNeb treatment. She was admitted to the Hospitalist service with a COPD exacerbation, and Pulmonary service now consulted for additional management/recommendations.
Chronic conditions ON CALL: Severe COPD, former tobacco use disorder, pulmonary nodules, hypertension, TIA, nocturnal hypoxia on 2 L/min, history of snoring, LBBB, paroxysmal A-fib on Eliquis, BCC of the face, history of DVT, liposarcoma of the right
leg (2020), history of pneumonia, history of chronic bronchitis, colonic polyps, right breast invasive lobular carcinoma diagnosed June 2023 s/p right mastectomy + XRT, DINORAH
Impression:
#Acute COPD exacerbation
#Acute respiratory failure with hypoxia due to above
#ER+/NM+, HER2 (-) right breast invasive lobular carcinoma Dx via ultrasound-guided biopsy on 06/24/2023
#Severe COPD on Stiolto respimat and prn albuterol at home
#History of tobacco use disorder
#History of nocturnal hypoxia on 2 L/min
Plan:
- Patient is admitted with a COPD exacerbation requiring supplemental oxygen, which she only usually uses at nighttime with sleep
- Continue titrating supplemental O2 flow rate to maintain SpO2 88-95%
- Continue with systemic steroids and wean as she clinically improves � currently on Decadron 4 mg IV q6hr
- Maintain euglycemia while on systemic steroids, with goal BG >100 and <180 mg/dL; HbA1c: 5.9 on 10/13/2024
- Continue DuoNebs; she is also ordered Striverdi and Spiriva. While on DuoNebs, she should not also be on a LAMA, hence I will stop this for now. Resume home inhaler upon discharge
- prn nebulized bronchodilators - patient not currently bronchospastic
- Mucolytics
- Check home O2 assessment prior to discharge
- Patient's proBNP was elevated on admission to 1700; last proBNP was 346 in August 2022
- Echo performed today (02/14), showing preserved LVEF at 55 to 60% with borderline LVH with septal contraction abnormality due to her LBBB, with MAC, mild aortic stenosis and normal right heart with PASP 28 mmHg.
- Reassess daily for additional doses of Lasix
- Trend BNP
- PT/OT
- Replete electrolytes with K>4, Mg>2
- Trend H/H and transfuse if needed to keep Hb >7-8g/dL; keep plt>10-20k, unless there is concern for bleeding then keep plt>50k
- Incentive spirometer encouraged 10x per hour for at least 4 hours a day
- DVT ppx: Eliquis
Patient should continue to follow-up with our [facility] office following discharge - last saw Dr. Villafana on 12/02/2024.
Pulmonary service will continue to follow along.
Data:
CXR 02/13/2025:
No acute disease of the chest.
Mild cardiomegaly. New
Total time spent today was 58 minutes for this encounter. Time includes reviewing laboratory test/imaging results, reviewing pertinent medical records, obtaining and reviewing medical history, performing an appropriate exam, ordering medications,
tests and procedures. Time also includes documentation of this encounter, coordinating patient care and communicating with other healthcare professionals. Total time does not include separately billed tests performed on this date of service.
[2025-02-14 11:24] VITALS: BP 137/69
--- NOTE | 2025-02-14 14:56 | W.PN.HOSP.TC ---
Today's Communication/Plan
-
see outlined plan below
Assessment / Plan
Assessment / Plan
Assessment:
Acute COPD exacerbation
- likely from viral URI. COVID/Flu negative. CXR negative
- Continue IV steroids
- continue nebs scheduled + prn
- continue inhalers
- supportive care, mucolytics, IS/Acapella
- Pulmonary consulted
Acute on chronic hypoxic respiratory failure
- wean O2 to baseline usage which is 2 L nighttime
Paroxysmal A-fib
- continue Eliquis
Remote hx of TIA
Hx of right breast cancer: Status post r mastectomy and completed radiation. No chemotherapy
Essential Hypertension: continue Amlodipine
hypercholesterolemia
DVT ppx: Eliquis
Code status: DNR/DNI
Anticipated Discharge: 24 - 48 hours
Subjective/Interval History
-
Date of Service: February 14, 2025
reports less SOB
no chest pain
no fever/chills
Objective Data
-
Labs:
Laboratory Results
02/14/25
05:37
WBC 4.6 L
Hgb 13.5
Hct 41.3
Plt Count 164
Sodium 136
Potassium 4.5
Chloride 102
Carbon Dioxide 29
BUN 30 H
Creatinine 0.9
Glucose 134 H
Calcium 9.2
Vital Signs:
Vital Signs
Temp Pulse Resp BP Pulse Ox
98.1 F 94 16 137/69 92
02/14/25 11:24 02/14/25 11:24 02/14/25 11:24 02/14/25 11:24 02/14/25 11:24
I&O
02/13/25 02/14/25 02/15/25
06:59 06:59 06:59
Intake Total 480 / 480
Balance 480 / 480
Physical Exam
-
General: No Apparent Distress
HEENT: Normocephalic and Atraumatic
Respiratory: Negative Wheezes
Cardiac: Regular Rhythm and S1/S2
GI: Soft
Genito-urinary: No Costovertebral Tender
Musculoskeletal: No Edema
Neuro: AO x 3
Psych: Calm
Data Reviewed
-
Total Time Spent with Patient (in minutes): 41
Labs: Labs Reviewed by me
[2025-02-14 15:25] VITALS: BP 139/77
--- NOTE | 2025-02-14 16:38 | CM ---
CM following for discharge planning needs. Pt has home O2, 2L NC at night. She lives with her at [facility]. and reports being (I) amb, adls and self care.
CM will continue to follow to coordinate all discharge planning needs.
[2025-02-14 19:00] VITALS: BP 139/73
[2025-02-14 23:00] VITALS: BP 114/57
[2025-02-15 03:00] VITALS: BP 132/67
[2025-02-15] MEDS: DECADRON 4 MG IV ×4 (04:14→22:06)
[2025-02-15 05:51] LABS: Hematocrit 42.9 % (37.0-47.0); Hemoglobin 13.8 g/dL (12.0-16.0); Mean Corp Hgb Conc. 32.2 g/dL (33.0-37.0); Mean Corpuscular Volume 89.9 fL (81.0-99.0); Platelet Count 184 10^3/uL (130-400); Red Cell Dist. Width 13.5 % (11.5-14.5)
[2025-02-15 06:00] VITALS: BMI 23.3
[2025-02-15 06:11] LABS: Blood Urea Nitrogen 34 mg/dl (7-17); Calcium 8.9 mg/dl (8.4-10.2); Carbon Dioxide 29 mmol/L (22-30); Chloride 102 mmol/L (98-107); Estimated Creatinine Clearance 64 ml/min; Glucose 125 mg/dl (70-99); Potassium 4.6 mmol/L (3.5-5.1); Sodium 136 mmol/L (135-145); eGFR > 60.00
[2025-02-15] MEDS: DUONEB 3 ML INH ×4 (07:39→20:19)
[2025-02-15] MEDS: STRIVERDI RESPIMAT 2 PUFF INH (07:40)
[2025-02-15 07:47] VITALS: BP 140/74
[2025-02-15] MEDS: MUCINEX 1200 MG PO ×2 (08:28→22:06)
[2025-02-15] MEDS: NORVASC 10 MG PO (08:28)
[2025-02-15] MEDS: ELIQUIS 5 MG PO ×2 (08:28→22:06)
--- NOTE | 2025-02-15 10:16 | W.PN.PUL3 ---
Today's Communication / Plan
-
Continue with systemic steroids, weaning down to Decadron for 4 mg IV q8hr tonight
Patient could potentially be ready for discharge tomorrow, at which point she should be discharged home on prednisone 40 mg daily, reducing by 10 mg every 4th day until off
Home O2 assessment prior to discharge
DuoNebs + Striverdi; resume home inhalers upon discharge; consider changing to triple inhaler therapy as an outpatient per 2024 GOLD guidelines
Mucolytics
Z-pack
Outpatient pulmonary office follow-up to be arranged with Dr. Villafana
Pulmonary service will continue to follow along; discharge planning per primary team � if she remains stable by tomorrow, then she can be discharged home after home O2 assessment is completed
Assessment
-
Assessment: 79-year-old female former tobacco smoker with a past medical history of severe COPD, hypertension, right breast invasive lobular carcinoma diagnosed June 2023 s/p right mastectomy + XRT, history of DVT, liposarcoma of the right leg
(2020), history of chronic bronchitis, history of pneumonia, and DINORAH who presents with SOB. Patient has been wearing her 2 L/min nasal cannula at nighttime. 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 She denied nasal congestion,
fevers or chills. Also no chest pain or palpitations. She receives DuoNebs on the way to the hospital. In the ER she was afebrile, pulse rate 109, respiratory rate 18, BP 151/81 and she was saturating 91% on room air. Labs showed normal WBC at
7.3, Hb 14.9, troponin negative x 1 and proBNP 1700. COVID-19 antigen negative. Flu swab also negative. CXR obtained showing no acute disease of the chest. In the ER she received albuterol, 40 mg Lasix and 125 mg of send Medrol. She did improve
with the DuoNeb treatment. She was admitted to the Hospitalist service with a COPD exacerbation, and Pulmonary service now consulted for additional management/recommendations.
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
leg (2020), history of pneumonia, history of chronic bronchitis, colonic polyps, right breast invasive lobular carcinoma diagnosed June 2023 s/p right mastectomy + XRT, DINORAH
Impression:
#Acute COPD exacerbation
#Acute respiratory failure with hypoxia due to above
#ER+/MA+, HER2 (-) right breast invasive lobular carcinoma Dx via ultrasound-guided biopsy on 06/24/2023
#Severe COPD on Stiolto respimat and prn albuterol at home
#History of tobacco use disorder
#History of nocturnal hypoxia on 2 L/min
Plan:
- Patient is admitted with a COPD exacerbation requiring supplemental oxygen, which she only usually uses at nighttime with sleep
- Patient had a sudden flareup, and she attributes this to exposure to family members + [place] tree, different scents, perfumes, candles, etc.
- She has markedly improved from a hypoxia standpoint, and is on room air breathing comfortably. Maintain SpO2 88-95%, using supplemental O2 if needed
- Continue with systemic steroids and wean as she clinically improves � currently on Decadron 4 mg IV q6hr - -> reduce to 4mg IV q8hr (equivalent to 80 mg total of prednisone) with slow prednisone taper once ready for discharge
- Maintain euglycemia while on systemic steroids, with goal BG >100 and <180 mg/dL; HbA1c: 5.9 on 10/13/2024
- Continue DuoNebs; she was also ordered Striverdi and Spiriva. While on DuoNebs, she should not also be on a LAMA, hence this was stopped. Resume home inhaler regimen upon discharge; considering she is having a COPD exacerbation and her absolute
eosinophils have been >100 over the last 1 year, would consider starting triple inhaler therapy - can be discussed with her as an outpatient.
- prn nebulized bronchodilators - patient not currently bronchospastic
- Mucolytics
- Check home O2 assessment prior to discharge
- Patient says that her sputum is now green and she continues to cough. Agree with course of Zithromax to cover URI
- Patient's proBNP was elevated on admission to 1700; last proBNP was 346 in August 2022
- Echo performed on 02/14 showed preserved LVEF at 55-60% with borderline LVH with septal contraction abnormality due to her LBBB, with MAC, mild aortic stenosis and normal right heart with PASP 28 mmHg.
- Reassess daily for additional doses of Lasix
- Trend BNP (significant improvement to 263 today from 1700 on admission)
- PT/OT
- Replete electrolytes with K>4, Mg>2
- Trend H/H and transfuse if needed to keep Hb >7-8g/dL; keep plt>10-20k, unless there is concern for bleeding then keep plt>50k
- Incentive spirometer encouraged 10x per hour for at least 4 hours a day
- DVT ppx: Eliquis
Patient should continue to follow-up with our [facility] office following discharge - last saw Dr. Villafana on 12/02/2024.
Pulmonary service will continue to follow along.
Data:
CXR 02/13/2025:
No acute disease of the chest.
Mild cardiomegaly. New
Total time spent today was 41 minutes for this encounter. Time includes reviewing laboratory test/imaging results, reviewing pertinent medical records, obtaining and reviewing medical history, performing an appropriate exam, ordering medications,
tests and procedures. Time also includes documentation of this encounter, coordinating patient care and communicating with other healthcare professionals. Total time does not include separately billed tests performed on this date of service.
Subjective Data
-
Date of Service:
Date of Service: February 15, 2025
Chief Complaint: Pulmonary Follow Up
Subjective:
Patient seen and evaluated today bedside. Shortness of breath is improving. Currently on room air breathing comfortably. Continues to have a cough with difficulty bringing up her phlegm. Currently denies chest pain, VALENCIA, nausea, fevers or chills.
Review of Systems
General: Other (Negative unless mentioned above)
Objective Data
Data Reviewed
Vital Signs / I&O / Oxygen:
Vital Signs
Temp Pulse Resp BP Pulse Ox
98.2 F 71 16 140/74 96
02/15/25 07:47 02/15/25 07:47 02/15/25 07:47 02/15/25 07:47 02/15/25 07:47
Intake and Output
02/14/25 02/15/25 02/16/25
06:59 06:59 06:59
Intake Total 480 / 480 800 / 800
Balance 480 / 480 800 / 800
SaO2 96
Nasal Cannula flow liters per 2
minute
Physical Exam
General: Respiratory Distress (n), Comfortable, Chills (n) and Sweats (n)
HEENT: Normocephalic and Anicteric
Cardiovascular: S1-S2 and Peripheral Edema (n)
Respiratory: Wheeze (n), Crackles (Left upper lobe), Rhonchi (n), Non-Labored Respirations, Stridor (n) and Other (Grossly diminished breath sounds bilaterally)
GI: Soft, Non Distended, Non Tender and Normal Bowel Sounds
Neurology: Awake, Alert and Tremors (n)
Skin: Warm, Dry, Cyanosis (n) and Jaundice (n)
Labs/Micro/Reports
Lab Data
02/15/25 05:30
02/15/25 05:30
Microbiology
02/13/25 16:58 Sputum Respiratory Culture - Preliminary
Usual Respiratory Janelle
02/13/25 16:58 Sputum Gram Stain - Preliminary
02/13/25 08:09 Nasal Swab Influenza Types A & B (MARITA) - Final
Negative for Influenza A & B, NAAT
Negative results must be combined with clinical observations
and patient history.
Nucleic Acid Amplification test (NAAT)performed on the
[employer] platform.
[2025-02-15 11:00] VITALS: BP 139/74
--- NOTE | 2025-02-15 11:37 | W.PN.HOSP.TC ---
Addendum entered and electronically signed by Valarie Aguero MD 02/15/25 11:53:
add Azithromycin (previously tolerated) - not doxycycline due to prior swelling reaction
Original Note:
Today's Communication/Plan
-
add Doxy course
continue current plan otherwise
d/w Pulm; probable DC in 24 hours
Assessment / Plan
Assessment / Plan
Assessment:
Acute COPD exacerbation
- likely from viral URI. COVID/Flu negative. CXR negative
- Continue IV steroids x 24 hours further, then DC on steroid taper
- continue nebs scheduled + prn
- continue inhalers
- supportive care, mucolytics, IS/Acapella
- Pulmonary following
Green sputum, likely acute bronchitis
- start doxycycline course x 5 days
Acute on chronic hypoxic respiratory failure
- wean O2 to baseline usage which is 2 L nighttime
- home O2 eval 02/15 without daytime O2 needs
Paroxysmal A-fib
- continue Eliquis
Remote hx of TIA
Hx of right breast cancer: Status post r mastectomy and completed radiation. No chemotherapy
Essential Hypertension: continue Amlodipine
hypercholesterolemia
DVT ppx: Eliquis
Code status: DNR/DNI
Anticipated Discharge: Within 24 hours
Subjective/Interval History
-
Date of Service: February 15, 2025
resting comfortably, reports SOB improving, less wheezing
reports greenish sputum
Objective Data
-
Labs:
Laboratory Results
02/15/25
05:30
WBC 7.2
Hgb 13.8
Hct 42.9
Plt Count 184
Sodium 136
Potassium 4.6
Chloride 102
Carbon Dioxide 29
BUN 34 H
Creatinine 0.7
Glucose 125 H
Calcium 8.9
Vital Signs:
Vital Signs
Temp Pulse Resp BP Pulse Ox
98.5 F 96 16 139/74 91
02/15/25 11:00 02/15/25 11:00 02/15/25 11:00 02/15/25 11:00 02/15/25 11:00
I&O
02/14/25 02/15/25 02/16/25
06:59 06:59 06:59
Intake Total 480 / 480 800 / 800
Balance 480 / 480 800 / 800
Physical Exam
-
General: No Apparent Distress
HEENT: Normocephalic and Atraumatic
Respiratory: Wheezes (LLL>RLL)
Cardiac: Regular Rhythm and S1/S2
GI: Soft and Nontender
Neuro: AO x 3
Psych: Calm
Data Reviewed
-
Total Time Spent with Patient (in minutes): 42
Labs: Labs Reviewed by me
[2025-02-15] MEDS: ZITHROMAX 500 MG PO (12:59)
[2025-02-15 15:31] VITALS: BP 137/73
[2025-02-15 23:10] VITALS: BP 132/79
[2025-02-16] MEDS: DECADRON 4 MG IV ×2 (05:32→08:39)
[2025-02-16] MEDS: STRIVERDI RESPIMAT 2 PUFF INH (05:50)
[2025-02-16] MEDS: DUONEB 3 ML INH ×2 (05:50→10:16)
[2025-02-16 06:00] VITALS: BMI 23.5
[2025-02-16 06:31] LABS: Hematocrit 42.8 % (37.0-47.0); Hemoglobin 13.7 g/dL (12.0-16.0); Mean Corp Hgb Conc. 32.0 g/dL (33.0-37.0); Mean Corpuscular Volume 91.5 fL (81.0-99.0); Platelet Count 178 10^3/uL (130-400); Red Cell Dist. Width 13.5 % (11.5-14.5)
[2025-02-16 06:53] LABS: Blood Urea Nitrogen 34 mg/dl (7-17); Calcium 9.0 mg/dl (8.4-10.2); Carbon Dioxide 31 mmol/L (22-30); Chloride 102 mmol/L (98-107); Estimated Creatinine Clearance 56 ml/min; Glucose 101 mg/dl (70-99); Potassium 4.8 mmol/L (3.5-5.1); Sodium 137 mmol/L (135-145); eGFR > 60.00
[2025-02-16 08:08] VITALS: BP 137/78
[2025-02-16] MEDS: ELIQUIS 5 MG PO (08:39)
[2025-02-16] MEDS: NORVASC 10 MG PO (08:39)
[2025-02-16] MEDS: ZITHROMAX 250 MG PO (08:39)
[2025-02-16] MEDS: MUCINEX 1200 MG PO (08:39)
--- NOTE | 2025-02-16 10:14 | W.PN.PUL3 ---
Today's Communication / Plan
-
Continue with systemic steroids, with plans to send home on prednisone taper beginning at 40 mg, and reducing by 10 mg every third day until off
Home O2 assessment prior to discharge
DuoNebs + Striverdi; resume home inhalers upon discharge; consider changing to triple inhaler therapy as an outpatient per 2024 GOLD guidelines
Mucolytics
Z-pack
Outpatient pulmonary office follow-up to be arranged with Dr. Villafana
Patient is being prepared for discharge home today. No additional recommendations at this time. Pulmonary service will now sign off. Please reconsult if there are any additional questions/concerns, or if patient's respiratory status deteriorates.
Assessment
-
Assessment: 79-year-old female former tobacco smoker with a past medical history of severe COPD, hypertension, right breast invasive lobular carcinoma diagnosed June 2023 s/p right mastectomy + XRT, history of DVT, liposarcoma of the right leg
(2020), history of chronic bronchitis, history of pneumonia, and DINORAH who presents with SOB. Patient has been wearing her 2 L/min nasal cannula at nighttime. 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 She denied nasal congestion,
fevers or chills. Also no chest pain or palpitations. She receives DuoNebs on the way to the hospital. In the ER she was afebrile, pulse rate 109, respiratory rate 18, BP 151/81 and she was saturating 91% on room air. Labs showed normal WBC at
7.3, Hb 14.9, troponin negative x 1 and proBNP 1700. COVID-19 antigen negative. Flu swab also negative. CXR obtained showing no acute disease of the chest. In the ER she received albuterol, 40 mg Lasix and 125 mg of send Medrol. She did improve
with the DuoNeb treatment. She was admitted to the Hospitalist service with a COPD exacerbation, and Pulmonary service now consulted for additional management/recommendations.
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
leg (2020), history of pneumonia, history of chronic bronchitis, colonic polyps, right breast invasive lobular carcinoma diagnosed June 2023 s/p right mastectomy + XRT, DINORAH
Impression:
#Acute COPD exacerbation
#Acute respiratory failure with hypoxia due to above
#ER+/MO+, HER2 (-) right breast invasive lobular carcinoma Dx via ultrasound-guided biopsy on 06/24/2023
#Severe COPD on Stiolto respimat and prn albuterol at home
#History of tobacco use disorder
#History of nocturnal hypoxia on 2 L/min
Plan:
- Patient is admitted with a COPD exacerbation requiring supplemental oxygen, which she only usually uses at nighttime with sleep
- Patient had a sudden flareup, and she attributes this to exposure to family members + [place] tree, different scents, perfumes, candles, etc.
- She has markedly improved from a hypoxia standpoint, and is on room air breathing comfortably. Maintain SpO2 88-95%, using supplemental O2 if needed
- Continue with systemic steroids and wean as she clinically improves � currently on Decadron 4 mg IV q6hr - -> reduce to 4mg IV q8hr (equivalent to 80 mg total of prednisone) with slow prednisone taper once ready for discharge
- Maintain euglycemia while on systemic steroids, with goal BG >100 and <180 mg/dL; HbA1c: 5.9 on 10/13/2024
- Continue DuoNebs; she was also ordered Striverdi and Spiriva. While on DuoNebs, she should not also be on a LAMA, hence this was stopped. Resume home inhaler regimen upon discharge; considering she is having a COPD exacerbation and her absolute
eosinophils have been >100 over the last 1 year, would consider starting triple inhaler therapy - can be discussed with her as an outpatient.
- prn nebulized bronchodilators - patient not currently bronchospastic
- Mucolytics
- Check home O2 assessment prior to discharge
- Patient says that her sputum is now green and she continues to cough. Agree with course of Zithromax to cover URI
- Patient's proBNP was elevated on admission to 1700; last proBNP was 346 in August 2022
- Echo performed on 02/14 showed preserved LVEF at 55-60% with borderline LVH with septal contraction abnormality due to her LBBB, with MAC, mild aortic stenosis and normal right heart with PASP 28 mmHg.
- Reassess daily for additional doses of Lasix
- Trend BNP (significant improvement to 263 on 02/15 compared to 1700 on admission)
- PT/OT
- Replete electrolytes with K>4, Mg>2
- Trend H/H and transfuse if needed to keep Hb >7-8g/dL; keep plt>10-20k, unless there is concern for bleeding then keep plt>50k
- Incentive spirometer encouraged 10x per hour for at least 4 hours a day
- DVT ppx: Eliquis
Patient should continue to follow-up with our [facility] office following discharge - last saw Dr. Villafana on 12/02/2024.
Patient is being prepared for discharge home today. No additional recommendations at this time. Pulmonary service will now sign off. Thank you for allowing us to be involved in the care of this patient. Please reconsult if there are any
additional questions/concerns, or if patient's respiratory status deteriorates.
Data:
CXR 02/13/2025:
No acute disease of the chest.
Mild cardiomegaly. New
Total time spent today was 27 minutes for this encounter. Time includes reviewing laboratory test/imaging results, reviewing pertinent medical records, obtaining and reviewing medical history, performing an appropriate exam, ordering medications,
tests and procedures. Time also includes documentation of this encounter, coordinating patient care and communicating with other healthcare professionals. Total time does not include separately billed tests performed on this date of service.
Subjective Data
-
Date of Service:
Date of Service: February 16, 2025
Chief Complaint: Pulmonary Follow Up
Subjective:
Remains afebrile. No acute events reported overnight. Being prepared for discharge home today.
Review of Systems
General: Other (Negative unless mentioned above)
Objective Data
Data Reviewed
Vital Signs / I&O / Oxygen:
Vital Signs
Temp Pulse Resp BP Pulse Ox
98 F 80 16 137/78 93
02/16/25 08:08 02/16/25 08:08 02/16/25 08:08 02/16/25 08:08 02/16/25 08:08
Intake and Output
02/15/25 02/16/25 02/17/25
06:59 06:59 06:59
Intake Total 800 / 800 1200 / 1200
Balance 800 / 800 1200 / 1200
SaO2 93
Nasal Cannula flow liters per 2
minute
Physical Exam
General: Respiratory Distress (n), Comfortable, Chills (n) and Sweats (n)
HEENT: Normocephalic and Anicteric
Cardiovascular: S1-S2 and Peripheral Edema (n)
Respiratory: Wheeze (n), Crackles (Left upper lobe), Rhonchi (n), Non-Labored Respirations, Stridor (n) and Other (Grossly diminished breath sounds bilaterally)
GI: Soft, Non Distended, Non Tender and Normal Bowel Sounds
Neurology: Awake, Alert and Tremors (n)
Skin: Warm, Dry, Cyanosis (n) and Jaundice (n)
Labs/Micro/Reports
Lab Data
02/16/25 05:34
02/16/25 05:34
Microbiology
02/13/25 16:58 Sputum Respiratory Culture - Final
Usual Respiratory Janelle
02/13/25 16:58 Sputum Gram Stain - Final
02/13/25 08:09 Nasal Swab Influenza Types A & B (MARITA) - Final
Negative for Influenza A & B, NAAT
Negative results must be combined with clinical observations
and patient history.
Nucleic Acid Amplification test (NAAT)performed on the
[employer] platform.
--- NOTE | 2025-02-16 10:30 | W.PN.HOSP.TC ---
Today's Communication/Plan
-
dc home
Assessment / Plan
Assessment / Plan
Assessment:
Acute COPD exacerbation
- likely from viral URI. COVID/Flu negative. CXR negative
- transition to prednisone with taper
- continue nebs scheduled + prn
- continue inhalers
- supportive care, mucolytics, IS/Acapella
- Pulmonary follow up OP
Green sputum, likely acute bronchitis
- finish Azithromycin x 5 days
Acute on chronic hypoxic respiratory failure
- wean O2 to baseline usage which is 2 L nighttime
- home O2 eval 02/15 without daytime O2 needs
Paroxysmal A-fib
- continue Eliquis
Remote hx of TIA
Hx of right breast cancer: Status post r mastectomy and completed radiation. No chemotherapy
Essential Hypertension: continue Amlodipine
hypercholesterolemia
DVT ppx: Eliquis
Code status: DNR/DNI
More than 30 minutes spent in discharge including
Final examination of the patient
Summarizing hospital stay
Instructions for continuing care to all relevant caregivers
Preparation of discharge records, prescriptions, and referral forms
Total time spent (in minutes): 41
Anticipated Discharge: Today
Subjective/Interval History
-
Date of Service: February 16, 2025
resting comfortably
reports less SOB, less wheezing
reports very minimal SOB with ambulation
Objective Data
-
Labs:
Laboratory Results
02/16/25
05:34
WBC 7.3
Hgb 13.7
Hct 42.8
Plt Count 178
Sodium 137
Potassium 4.8
Chloride 102
Carbon Dioxide 31 H
BUN 34 H
Creatinine 0.8
Glucose 101 H
Calcium 9.0
Vital Signs:
Vital Signs
Temp Pulse Resp BP Pulse Ox
98 F 68 16 137/78 92
02/16/25 08:08 02/16/25 10:18 02/16/25 10:18 02/16/25 08:08 02/16/25 10:18
I&O
02/15/25 02/16/25 02/17/25
06:59 06:59 06:59
Intake Total 800 / 800 1200 / 1200
Balance 800 / 800 1200 / 1200
Physical Exam
-
General: No Apparent Distress
HEENT: Normocephalic and Atraumatic
Respiratory: Wheezes (faint)
Cardiac: Regular Rhythm and S1/S2
GI: Soft
Genito-urinary: No Costovertebral Tender
Neuro: AO x 3
Psych: Calm
Data Reviewed
-
Total Time Spent with Patient (in minutes): 41
Labs: Labs Reviewed by me
--- NOTE | 2025-02-16 10:34 | W.DCSUMMARY ---
Discharge Summary
Discharge Data
Date of Admission: 02/13/25
Date of Discharge: 02/16/25
-
Pending Results: No
Hospital Course
79 y/o F, hx of history of COPD, chronically home oxygen dependent, A. Fib on Eliquis, HTN, HLD, TIA presented to ER on 02/13 with productive cough and acute on chronic SOB x 24 hours. Chest xray and swabs were negative; she was diagnosed with COPD
Exacerbation possibly from bronchitis. She was started on nebs, IV Steroids and other supportive care (mucolytics, IS/Acapella). She also will complete 5 day Azithromycin course. Pulmonary consulted and agreed with the management. Patient
symptomatically improved over 72 hours and was discharged home 02/16/25. She will finish steroid taper at home and follow up in Pulmonary office in 3-4 weeks with OP Pulmonary Dr. Villafana
Discharge Plan
-
Patient Disposition: Home (Routine Discharge)
Discharge Diagnosis/Procedures: acute COPD exacerbation
Condition: Fair
Diet: Low Cholesterol
Activity: As tolerated
Referrals:
Miki Grace MD [Active, Pulmonary Medicine] - in three to four weeks
Yeni Jaimes CRNP [Family Provider, General] - in one week
Prescriptions:
New
azithromycin 250 mg Tablet
250 mg PO DAILY Qty: 3 0RF
benzonatate 100 mg Capsule
100 mg PO TIDPRN PRN (Reason: cough) Qty: 20 0RF
guaifenesin 600 mg Tablet Extended Release 12hr
1,200 mg PO Q12 Qty: 20 0RF
prednisone 10 mg tablet
10 mg PO DIRECTED Qty: 20 0RF
Rx Instructions:
starting 02/18/25, take 40mg x 2 days, then 30mg x 2 days, then 20mg x 2 days, then 10mg x 2 days
Continued
amlodipine 10 mg Tablet
10 mg PO DAILY
Emergen-C 500 mg Tablet,Chewable
1 tab PO DAILY
Eliquis 5 mg Tablet
5 mg PO BID
ipratropium-albuterol 0.5 mg-3 mg(2.5 mg base)/3 mL Solution For Nebulization
3 ml INHALATION R Q6HPRN PRN (Reason: sob)
Stiolto Respimat 2.5-2.5 mcg/actuation Mist
2 puff INHALATION R DAILY
Metamucil Packet
1 packet PO DAILYPRN PRN (Reason: constipation)
Discharge Orders:
Discharge Patient (As Directed); Ordered 02/16/25
Ordered By: Valarie Aguero
Discharge Date and Time
Print Language: TELUGU
--- NOTE | 2025-02-16 10:56 | CM ---
Patient seen bedside.
Plan is for d/c home today, spouse will transport.
Denies home care needs.
has nebulizer at home.
Plan: home today n0 needs.
IMM completed.
[2025-02-16 11:00] VITALS: BP 136/70
== END 2025-02-16 11:27 | disposition home or self-care (01) | DRG 190 ==
LOC: 3 WEST ACU 12:55
PROVIDERS: ADMITTING PHYSICIAN Internal Medicine; ATTENDING PHYSICIAN Internal Medicine; EMERGENCY PHYSICIAN Emergency Medicine; FAMILY PHYSICIAN Nurse Practitioner Adult Health; OTHER PHYSICIAN Internal Medicine Critical Care Medicine
DX: J44.1 Chronic obstructive pulmonary disease with (acute) exacerbation (principal); J96.21 Acute and chronic respiratory failure with hypoxia; Z87.891 Personal history of nicotine dependence; Z11.52 Encounter for screening for COVID-19; Z79.01 Long term (current) use of anticoagulants; I10 Essential (primary) hypertension; Z66 Do not resuscitate; E78.00 Pure hypercholesterolemia, unspecified; I48.0 Paroxysmal atrial fibrillation
CPT/HCPCS: 71046; 80048; 80053; 83880; 84484; 85025; 85027; 87070; 87205; 87502; 87811; 93005; 93306; 94640; 96374; 99285